=== PATIENT | male | born 1970 | race Caucasian/White ===

== ENCOUNTER 2020-04-20 05:32 | Inpatient (IN) | payer BC, OTHER ==
[~2020-04-20] VITALS: Ht 175.3 cm; Wt 122.1 kg
[2020-04-20] VITALS (15 sets, daily range): BP systolic 84–152; BP diastolic 41–103
[~2020-04-20 05:32] MED LIST: ALLO100T PO; CARV25TA2 PO; FURO-150 PO; GABA-534 PO; HYDR-3972 PO; MAGN400T28 PO; OMEP40CA13 PO; ONDA4TAB12 PO; ONDA4TAB6 PO; OXYC-138 PO; TACR1CAP PO
[2020-04-20] MEDS ORDERED: CefTRIAXone 2gm/D5W 50ml 50 ML IV ONE (05:40)
[2020-04-20] MEDS ORDERED: normal saline 1000ML IV soln IV ONE (05:40)
[2020-04-20] MEDS ORDERED: CefTRIAXone inj 2,000 MG in normal saline 100ml IV soln 100 ML IV ONE (05:42)
[2020-04-20 05:55] LABS: BASOPHILS # (AUTO) 0.1 X10'3 (0-0.2); BASOPHILS % (AUTO) 0.3 % (0-1); EOSINOPHILS % (AUTO) 0.1 % (0-6); HEMATOCRIT 29.3 % (42.0-52.0); HEMOGLOBIN 9.1 g/dl (14.0-17.9); LYMPHOCYTES # (AUTO) 0.9 X10'3 (1.1-4.8); LYMPHOCYTES % (AUTO) 5.6 % (21-51); MEAN CORPUSCULAR HEMOGLOBIN 27.5 PG (27.0-31.0); MEAN CORPUSCULAR HGB CONC 31.1 g/dL (33.0-36.5); MEAN CORPUSCULAR VOLUME 88.5 FL (78-98); MEAN PLATELET VOLUME 7.7 FL (7.4-10.4); MONOCYTES # (AUTO) 0.4 X10'3 (0-0.9); MONOCYTES % (AUTO) 2.4 % (2-12); NEUTROPHILS # (AUTO) 14.2 X10'3 (1.8-7.7); NEUTROPHILS % (AUTO) 91.6 % (42-75); PLATELET COUNT 386 X10'3 (140-440); RED BLOOD COUNT 3.31 X10'6 (4.70-6.10); WHITE BLOOD COUNT 15.5 X10'3 (4.5-11.0)
--- NOTE | 2020-04-20 06:07 | NUR ---
Md D eLeon at bedside reassessing the patient. Defib pads applied to pt. 0.05mg epinephrine given per verbal MD order. Order given to admin 0.4mg narcon.
[2020-04-20 06:09] LABS: PARTIAL THROMBOPLASTIN TIME 31 SECONDS (22-32)
--- NOTE | 2020-04-20 06:11 | NUR ---
1.2mg narcan given ivp per verbal order from Ohlfs
[2020-04-20 06:16] LABS: CLARITY,URINE CLEAR (Clear); COLOR,URINE AMBER (Yellow); GLUCOSE, URINE NEGATIVE (Neg); KETONES,URINE TRACE mg/dl (Neg); LEUKOCYTE ESTERASE ,URINE NEGATIVE (Neg); NITRITES, URINE NEGATIVE (Neg); OCCULT BLOOD,URINE TRACE-INTACT (Neg); PROTEIN,URINE 100 mg/dl (Neg); UROBILINOGEN,URINE 0.2 E.U/dL (0.2-1.0)
[2020-04-20 06:20] LABS: ALANINE AMINOTRANSFERASE 105 U/L (12-78); ALBUMIN/GLOBULIN RATIO 0.5 (1.1-1.5); ALKALINE PHOSPHATASE 220 IU/L (46-116); ANION GAP 21 (8-16); ASPARTATE AMINO TRANSFERASE 20 U/L (10-37); BILIRUBIN,TOTAL 0.7 MG/DL (0.1-1.0); BLOOD UREA NITROGEN 101 MG/DL (7-18); BUN/CREATININE RATIO 12.1 (5.4-32.0); CALCIUM 8.4 MG/DL (8.5-10.1); CHLORIDE 94 MMOL/L (99-107); CREATININE 8.34 MG/DL (0.60-1.10); GLUCOSE 166 MG/DL (70-104); MAGNESIUM 3.6 MG/DL (1.5-2.4); SODIUM 129 MMOL/L (135-145); TOTAL PROTEIN 8.8 G/DL (6.4-8.2); eGFR 7 ML/MIN
[2020-04-20] MEDS ORDERED: atropine 1 MG/1 ML vial IV ONE ×2 (06:20→06:25)
[2020-04-20 06:22] LABS: TROPONIN I < 0.04 NG/ML (0.0-0.05)
[2020-04-20 06:24] LABS: TOTAL CARBON DIOXIDE 14.1 MMOL/L (24-32)
[2020-04-20] MEDS ORDERED: dextrose 50%-water 50ml dispensing syringe IV ONE ×2 (06:25→08:00)
[2020-04-20] MEDS ORDERED: ipratropium/albuterol 3ml nebule NEB PRN (06:25)
[2020-04-20] MEDS ORDERED: calcium chloride 100 MG/1 ML inj IV ONE ×3 (06:25→08:00)
[2020-04-20] MEDS ORDERED: insulin regular, human 10 units/0.1 ml syringe IV ONE (06:25)
[2020-04-20] MEDS ORDERED: sodium bicarbonate (8.4%) 1 mEq/ml syringe IV ONE ×3 (06:25→08:00)
[2020-04-20 06:26] LABS: UA COLLECTION TYPE FOLEY CATH
[2020-04-20] MEDS ORDERED: albuterol 2.5 MG/3 ML nebule CONTNEB PRN (06:30)
[2020-04-20] MEDS ORDERED: insulin regular, human U-100 3ml vial - multi-dose IV ONE (06:35)
--- NOTE | 2020-04-20 06:35 | NUR ---
DR BAÑUELOSFS AT BEDSIDE TO INSERT CENTRAL LINE AT THIS TIME.
[2020-04-20] MEDS ORDERED: rocuronium 10mg/ml inj IV ONE ×2 (06:45→08:00)
[2020-04-20] MEDS ORDERED: etomidate 2mg/ml inj. IV ONE (06:45)
[2020-04-20] MEDS ORDERED: sodium bicarbonate (8.4%) inj. 1 MEQ/ML ML IV ONE (06:45)
[2020-04-20 06:48] LABS: BACTERIA,URINE FEW /HPF (Neg); MUCUS STRANDS NONE SEEN /LPF (Neg); RBC,URINE 0-2 /HPF (0-2); SQUAMOUS EPITHELIAL CELL,UR FEW /LPF (FEW)
[2020-04-20] MEDS ORDERED: midazolam 100mg in NS 100ml 100 ML IV SCH (06:50)
[2020-04-20] MEDS ORDERED: fentaNYL/PF 50MCG/1 ML 2ML syringe IV PRN (06:50)
[2020-04-20] MEDS ORDERED: FENTANYL 1000MCG/NS 100 ML BAG /PF IV SCH (07:00)
[2020-04-20] MEDS ORDERED: FENTANYL 1000MCG/NS 100 ML BAG /PF IV PRN (07:00)
[2020-04-20] MEDS ORDERED: midazolam 100mg in NS 100ml 100 ML IV PRN (07:05)
[2020-04-20] MEDS ORDERED: LORazepam 2 mg/ml vial IV ONE (07:05)
[2020-04-20] MEDS ORDERED: vancomycin/NS 1 GM ADD-VANTAGE 250 ML X 1 DOSE IV ONE (07:10)
[2020-04-20] MEDS ORDERED: NORepinephrine 8mg/ 250ml NS 250 ML IV SCH (07:25)
[2020-04-20] MEDS: midazolam 100mg in NS 100ml 100 ML IV SCH ×3 (07:30→17:33)
[2020-04-20] MEDS ORDERED: albuterol 2.5 MG/3 ML nebule NEB ONE (07:30)
[2020-04-20] MEDS: DOPamine 400mg/D5W 250ml 250 ML IV SCH ×4 (07:30→21:49)
[2020-04-20 07:41] LABS: PHOSPHORUS 12.1 MG/DL (2.3-4.5)
--- NOTE | 2020-04-20 07:56 | NUR ---
0.5mg ephinephrine given via IVP per Dr Watkins for BP 68/26.
[2020-04-20] MEDS ORDERED: epiNEPHrine 1 mg/ml inj IV STA ×3 (07:58→08:22)
[2020-04-20] MEDS ORDERED: etomidate 2mg/ml inj. ONE (08:00)
[2020-04-20] MEDS ORDERED: atropine 0.1mg/ml 10ml syringe ONE (08:00)
[2020-04-20] MEDS ORDERED: epiNEPHrine 0.1mg/ml 10ml syringe ONE (08:00)
[2020-04-20] MEDS ORDERED: sodium bicarbonate (8.4%) 1 mEq/ml syringe ONE (08:00)
[2020-04-20] MEDS ORDERED: NORepinephrine 8 MG in NS 250 ML BAG (32 mcg/ml) IV ONE (08:00)
[2020-04-20] MEDS ORDERED: naloxone 0.4 mg/ml inj ONE (08:00)
--- NOTE | 2020-04-20 08:02 | NUR ---
0.5 mg epinephrine given IVP per [facility] for BP 84/38.
--- NOTE | 2020-04-20 08:09 | NUR ---
Per Dr Ohlfs when SBP drops < 80 then give 0.5mg epinephrine IVP.
[2020-04-20] MEDS ORDERED: bisacodyl 10mg suppository rectal RC PRN (08:15)
[2020-04-20] MEDS ORDERED: Neutra Phos packet PO PRN (08:15)
[2020-04-20] MEDS ORDERED: acetaminophen 325mg tablet PO PRN ×2 (08:15)
[2020-04-20] MEDS ORDERED: magnesium Cl slow-release 64mg tablet PO PRN (08:15)
[2020-04-20] MEDS ORDERED: sodium phosphate inj. 30 MMOL in dextrose 5%-water 250 ML IV PRN (08:15)
[2020-04-20] MEDS ORDERED: potassium CL 10mEq/100ml bag 100 ML IV PRN ×2 (08:15)
[2020-04-20] MEDS ORDERED: sodium phosphate inj. 15 MMOL in dextrose 5%-water 250 ML IV PRN (08:15)
[2020-04-20] MEDS ORDERED: magnesium 4gm in 100ml NS 100 ML IV PRN ×2 (08:15→08:45)
[2020-04-20] MEDS ORDERED: magnesium hydroxide 30ml (MOM) UD suspension PO PRN (08:15)
[2020-04-20] MEDS ORDERED: albuterol 2.5 MG/3 ML nebule NEB PRN (08:15)
[2020-04-20] MEDS ORDERED: potassium Cl 20 mEq SR tablet PO PRN ×2 (08:15)
[2020-04-20] MEDS ORDERED: magnesium 2GM in 50ml NS 50 ML IV PRN (08:15)
[2020-04-20] MEDS ORDERED: LIDOcaine 2% 10ml TOPICAL JELLY (Urojet) TP ONE (08:15)
[2020-04-20 08:20] LABS: ABG BASE EXCESS -16.9 mmol/L (-2.0-2.0); ABG HCO3 10.6 mmol/L (22.0-26.0); ABG OXYGEN SATURATION 95.4 % (94-97); ABG PCO2 (T) 31.2 mmHg (35.0-48.0); ABG PO2 (T) 90.7 mmHg (75.0-100.0); FCOHb 0.7 % (0.0-3.9); FMetHb 0.3 % (0.0-1.5); FO2Hb 94.4 % (94-97); PEEP 8 cm H2O; RESPIRATORY RATE 22 b/min; TIDAL VOLUME 550 mL; TOTAL HEMOGLOBIN 8.7 G/dl (14.0-18.0)
--- NOTE | 2020-04-20 08:20 | NUR ---
0.5mg Epinephrine IVP given at this time for BP 71/[address] Watkins[address]
--- NOTE | 2020-04-20 08:23 | NUR ---
4 attempts to obtain wave form for art line with no success, will continue to monitor.
--- NOTE | 2020-04-20 08:30 | NUR ---
0.5mg Epinephrine given via IVP per Dr Watkins for BP 73/26.
--- NOTE | 2020-04-20 08:42 | NUR ---
1mg epinephrine given IVP per Dr Watkins for BP 73/30.
[2020-04-20] MEDS ORDERED: heparin 25,000 UNIT/250ml bag 250 ML IV SCH (08:43)
[2020-04-20] MEDS ORDERED: calcium chloride inj. 1,000 MG in normal saline 100ml IV soln 100 ML IV PRN (08:45)
[2020-04-20] MEDS ORDERED: heparin 10,000 units/1 ML INJ IV PRN (08:45)
[2020-04-20] MEDS ORDERED: potassium Cl 20mEq/100mL bag 100 ML IV PRN (08:45)
[2020-04-20] MEDS ORDERED: sodium phosphate inj. 30 MMOL in normal saline 250ml IV soln 250 ML IV PRN (08:45)
[2020-04-20] MEDS ORDERED: heparin 10,000 units/1 ML INJ IV ONE (08:45)
--- NOTE | 2020-04-20 08:47 | NUR ---
Per Dr Ohlfs if SBP <80 then give Epinephrine 1mg IVP.
--- NOTE | 2020-04-20 08:59 | NUR ---
Given 1mg epinephrine IVP at this time for BP 78/[address] Watkins.
[2020-04-20] MEDS: bicarb dialysis sol 2K+/3 Ca2+ 5,000 ML HE SCH ×4 (09:00→15:51)
--- NOTE | 2020-04-20 09:10 | NUR ---
Received pt. to room 2039 from ED after receiving report from Zhanna RYAN. Pt. intubated with Versed infusing. Dr. Bailey at bedside to place Sundeep to left groin. Pt. has CVL to R subclavian. OGT placed. Dopamine and Versed infusing. Levo started now. Guard at bedside.
[2020-04-20] MEDS ORDERED: NORepinephrine 8mg/ 250ml NS 250 ML IV ONE (09:21)
[2020-04-20 09:46] LABS: AMYLASE 48 U/L (25-115); LDL CHOLESTEROL 122 MG/DL (50-100); LIPASE 354 U/L (73-393)
[2020-04-20 10:20] LABS: URINE AMPHETAMINE SCREEN NEGATIVE (Neg); URINE BARBITUATE SCREEN NEGATIVE (Neg); URINE BENZODIAZEPINES SCREEN NEGATIVE (Neg); URINE CANNABINOID SCREEN NEGATIVE (Neg); URINE COCAINE SCREEN NEGATIVE (Neg); URINE METHADONE SCREEN NEGATIVE (Neg); URINE OPIATE SCREEN POSITIVE (Neg); URINE PHENCYCLIDINE SCREEN NEGATIVE (Neg)
[2020-04-20 10:48] LABS: BASOPHILS % (AUTO) 0.2 % (0-1); EOSINOPHILS % (AUTO) 0 % (0-6); HEMATOCRIT 25.1 % (42.0-52.0); LYMPHOCYTES # (AUTO) 0.8 X10'3 (1.1-4.8); LYMPHOCYTES % (AUTO) 5.2 % (21-51); MEAN CORPUSCULAR HGB CONC 31.8 g/dL (33.0-36.5); MEAN CORPUSCULAR VOLUME 87.8 FL (78-98); MEAN PLATELET VOLUME 7.7 FL (7.4-10.4); MONOCYTES # (AUTO) 0.9 X10'3 (0-0.9); MONOCYTES % (AUTO) 6.1 % (2-12); NEUTROPHILS # (AUTO) 12.8 X10'3 (1.8-7.7); NEUTROPHILS % (AUTO) 88.5 % (42-75); PLATELET COUNT 342 X10'3 (140-440); RED BLOOD COUNT 2.86 X10'6 (4.70-6.10); RED CELL DISTRIBUTION WIDTH 15.2 % (11.5-14.5); WHITE BLOOD COUNT 14.5 X10'3 (4.5-11.0)
[2020-04-20] MEDS: pantoprazole 40 MG vial IV SCH (10:50)
[2020-04-20 11:51] LABS: BASOPHILS % (AUTO) 0.3 % (0-1); EOSINOPHILS % (AUTO) 0 % (0-6); HEMATOCRIT 26.3 % (42.0-52.0); HEMOGLOBIN 8.3 g/dl (14.0-17.9); LYMPHOCYTES # (AUTO) 0.7 X10'3 (1.1-4.8); LYMPHOCYTES % (AUTO) 4.8 % (21-51); MEAN CORPUSCULAR HEMOGLOBIN 27.6 PG (27.0-31.0); MEAN CORPUSCULAR HGB CONC 31.5 g/dL (33.0-36.5); MEAN CORPUSCULAR VOLUME 87.8 FL (78-98); MONOCYTES # (AUTO) 0.9 X10'3 (0-0.9); MONOCYTES % (AUTO) 5.6 % (2-12); NEUTROPHILS # (AUTO) 13.8 X10'3 (1.8-7.7); NEUTROPHILS % (AUTO) 89.3 % (42-75); PLATELET COUNT 338 X10'3 (140-440); RED BLOOD COUNT 2.99 X10'6 (4.70-6.10); RED CELL DISTRIBUTION WIDTH 15.6 % (11.5-14.5); WHITE BLOOD COUNT 15.5 X10'3 (4.5-11.0)
[2020-04-20 11:57] LABS: ALBUMIN 2.3 G/DL (3.4-5.0); ANION GAP 21 (8-16); BLOOD UREA NITROGEN 92 MG/DL (7-18); BUN/CREATININE RATIO 13.4 (5.4-32.0); CHLORIDE 99 MMOL/L (99-107); CREATININE 6.89 MG/DL (0.60-1.10); GLUCOSE 289 MG/DL (70-104); MAGNESIUM 2.8 MG/DL (1.5-2.4); PHOSPHORUS 8.5 MG/DL (2.3-4.5); POTASSIUM 5.9 MMOL/L (3.5-5.1); SODIUM 133 MMOL/L (135-145); eGFR 9 ML/MIN
[2020-04-20 12:00] LABS: TOTAL CARBON DIOXIDE 13.1 MMOL/L (24-32)
[2020-04-20 12:19] LABS: BASOPHILS % (AUTO) 0.1 % (0-1); EOSINOPHILS % (AUTO) 0 % (0-6); HEMATOCRIT 26.6 % (42.0-52.0); HEMOGLOBIN 8.4 g/dl (14.0-17.9); LYMPHOCYTES # (AUTO) 0.7 X10'3 (1.1-4.8); LYMPHOCYTES % (AUTO) 4.9 % (21-51); MEAN CORPUSCULAR HEMOGLOBIN 27.5 PG (27.0-31.0); MEAN CORPUSCULAR HGB CONC 31.6 g/dL (33.0-36.5); MEAN PLATELET VOLUME 7.9 FL (7.4-10.4); MONOCYTES # (AUTO) 0.8 X10'3 (0-0.9); MONOCYTES % (AUTO) 5.2 % (2-12); NEUTROPHILS # (AUTO) 13.3 X10'3 (1.8-7.7); NEUTROPHILS % (AUTO) 89.8 % (42-75); PLATELET COUNT 338 X10'3 (140-440); RED BLOOD COUNT 3.05 X10'6 (4.70-6.10); RED CELL DISTRIBUTION WIDTH 15.6 % (11.5-14.5); WHITE BLOOD COUNT 14.8 X10'3 (4.5-11.0)
[2020-04-20 12:29] LABS: ALBUMIN 2.4 G/DL (3.4-5.0); ANION GAP 21 (8-16); BLOOD UREA NITROGEN 88 MG/DL (7-18); BUN/CREATININE RATIO 13.5 (5.4-32.0); CHLORIDE 101 MMOL/L (99-107); CREATININE 6.51 MG/DL (0.60-1.10); GLUCOSE 283 MG/DL (70-104); MAGNESIUM 2.9 MG/DL (1.5-2.4); PHOSPHORUS 7.8 MG/DL (2.3-4.5); POTASSIUM 5.7 MMOL/L (3.5-5.1); SODIUM 135 MMOL/L (135-145); eGFR 9 ML/MIN
[2020-04-20 12:33] LABS: TOTAL CARBON DIOXIDE 12.6 MMOL/L (24-32)
[2020-04-20] MEDS: NORepinephrine 8mg/ 250ml NS 250 ML IV SCH (12:35)
[2020-04-20 13:23] LABS: BASOPHILS % (AUTO) 0.1 % (0-1); EOSINOPHILS % (AUTO) 0 % (0-6); HEMATOCRIT 26.3 % (42.0-52.0); HEMOGLOBIN 8.5 g/dl (14.0-17.9); LYMPHOCYTES # (AUTO) 0.6 X10'3 (1.1-4.8); LYMPHOCYTES % (AUTO) 4.6 % (21-51); MEAN CORPUSCULAR HGB CONC 32.3 g/dL (33.0-36.5); MEAN CORPUSCULAR VOLUME 86.7 FL (78-98); MEAN PLATELET VOLUME 7.6 FL (7.4-10.4); MONOCYTES # (AUTO) 0.7 X10'3 (0-0.9); MONOCYTES % (AUTO) 5.1 % (2-12); NEUTROPHILS # (AUTO) 12.3 X10'3 (1.8-7.7); NEUTROPHILS % (AUTO) 90.2 % (42-75); PLATELET COUNT 325 X10'3 (140-440); RED BLOOD COUNT 3.03 X10'6 (4.70-6.10); RED CELL DISTRIBUTION WIDTH 15.6 % (11.5-14.5); WHITE BLOOD COUNT 13.7 X10'3 (4.5-11.0)
[2020-04-20 13:30] LABS: ALBUMIN 2.3 G/DL (3.4-5.0); ANION GAP 20 (8-16); BLOOD UREA NITROGEN 82 MG/DL (7-18); BUN/CREATININE RATIO 13.3 (5.4-32.0); CHLORIDE 100 MMOL/L (99-107); CREATININE 6.16 MG/DL (0.60-1.10); GLUCOSE 260 MG/DL (70-104); MAGNESIUM 2.7 MG/DL (1.5-2.4); PHOSPHORUS 7.1 MG/DL (2.3-4.5); POTASSIUM 5.4 MMOL/L (3.5-5.1); SODIUM 133 MMOL/L (135-145); eGFR 10 ML/MIN
[2020-04-20 13:34] LABS: TOTAL CARBON DIOXIDE 12.8 MMOL/L (24-32)
[2020-04-20] MEDS ORDERED: AMIT100T61 PO (13:35)
[2020-04-20] MEDS ORDERED: AMLO10TA13 PO (13:35)
[2020-04-20] MEDS ORDERED: CHOL10006 PO (13:35)
[2020-04-20] MEDS ORDERED: MULT-687 PO (13:35)
[2020-04-20] MEDS ORDERED: HYDR12.55 PO (13:35)
[2020-04-20] MEDS ORDERED: ACET-1059 PO (13:35)
--- NOTE | 2020-04-20 13:38 | NUR ---
RN called Dr. Bailey about hyperglycemia and C02 of 12.8. Orders received.
[2020-04-20 13:40] LABS: ABG BASE EXCESS -16.1 mmol/L (-2.0-2.0); ABG HCO3 11.4 mmol/L (22.0-26.0); ABG OXYGEN SATURATION 91.1 % (94-97); ABG PCO2 (T) 27.5 mmHg (35.0-48.0); ABG PO2 (T) 52.6 mmHg (75.0-100.0); FCOHb 0.3 % (0.0-3.9); FO2Hb 90.8 % (94-97); PATIENT TEMPERATURE 32.8; PEEP 5 cm H2O; RESPIRATORY RATE 22 b/min; TIDAL VOLUME 500 mL; TOTAL HEMOGLOBIN 9.3 G/dl (14.0-18.0)
[2020-04-20] MEDS ORDERED: insulin Lispro (HumaLOG) vial - multi-dose SQ SCH (13:40)
[2020-04-20] MEDS ORDERED: dextrose 50%-water 50ml dispensing syringe IV PRN (13:40)
[2020-04-20] MEDS ORDERED: glucagon, human recombinant 1mg kit SUBCUT PRN (13:40)
[2020-04-20] MEDS ORDERED: MESSAGE TO PHARMACY PO ONE (13:40)
[2020-04-20] MEDS ORDERED: dextrose ORAL solution 15 GM/59 ML bottle PO PRN ×2 (13:40)
--- NOTE | 2020-04-20 13:59 | NUR ---
Tube feeding consult. Patient is intubated and sedated, on pressors. Presented to ED with shock, hyperkalemia, MELLO, sepsis, AMS--will have CVVH for the potassium all per MD note. In view of elevated K, Mg, Phos, low sodium recommend renal tube feeding formula. Formula and rate will not meet patient's protein needs without overfeeding calories on the vent. Has OG tube. Will follow and monitor electrolytes and appropriateness to change to non-renal formula to better meet patient's protein needs. Recommend: 1. continuos tube feeding per OG tube using Nepro at goal rate of 50 ml/hr will provide total volume of 1200 ml, 2160 tonja, 97 g protein, and 872 ml water. 2. additional water flush per MD in view of CVVH and low sodium 3. prealbumin q monday/ 4. daily weights 5. monitor electrolytes and tube feeding formula needs Addendum: 04/20/20 at [address] Amended: Links added.
[2020-04-20 14:18] LABS: BASOPHILS % (AUTO) 0.6 % (0-1); EOSINOPHILS % (AUTO) 0 % (0-6); HEMOGLOBIN 8.1 g/dl (14.0-17.9); LYMPHOCYTES # (AUTO) 0.5 X10'3 (1.1-4.8); MEAN CORPUSCULAR HEMOGLOBIN 27.9 PG (27.0-31.0); MEAN CORPUSCULAR HGB CONC 32.3 g/dL (33.0-36.5); MEAN CORPUSCULAR VOLUME 86.4 FL (78-98); MEAN PLATELET VOLUME 7.6 FL (7.4-10.4); MONOCYTES # (AUTO) 0.1 X10'3 (0-0.9); MONOCYTES % (AUTO) 2.2 % (2-12); NEUTROPHILS # (AUTO) 5.8 X10'3 (1.8-7.7); NEUTROPHILS % (AUTO) 90.2 % (42-75); PLATELET COUNT 270 X10'3 (140-440); RED BLOOD COUNT 2.89 X10'6 (4.70-6.10); RED CELL DISTRIBUTION WIDTH 15.2 % (11.5-14.5); WHITE BLOOD COUNT 6.5 X10'3 (4.5-11.0)
[2020-04-20] MEDS: sodium bicarbonate (8.4%) inj. 100 MEQ in dextrose 5%-water 1,000 ML IV SCH (14:30)
[2020-04-20 14:31] LABS: ALBUMIN 2.2 G/DL (3.4-5.0); ANION GAP 22 (8-16); BLOOD UREA NITROGEN 79 MG/DL (7-18); BUN/CREATININE RATIO 13.7 (5.4-32.0); CHLORIDE 101 MMOL/L (99-107); CREATININE 5.75 MG/DL (0.60-1.10); GLUCOSE 252 MG/DL (70-104); MAGNESIUM 2.7 MG/DL (1.5-2.4); PHOSPHORUS 6.4 MG/DL (2.3-4.5); SODIUM 135 MMOL/L (135-145); eGFR 11 ML/MIN
[2020-04-20 14:36] LABS: TOTAL CARBON DIOXIDE 12.5 MMOL/L (24-32)
[2020-04-20] MEDS: piperacillin/tazo 3.375gm/50ml 50 ML IV SCH ×2 (14:38→20:39)
[2020-04-20 15:12] LABS: HEMOGLOBIN A1C 6.1 % (4.5-6.2)
[2020-04-20] MEDS: insulin regular, human U-100 3ml vial - multi-dose SQ SCH (15:29)
--- NOTE | 2020-04-20 15:37 | NUR ---
Pt. has been hypothermic since admit. 35.0 C. Erickson hugger and warm blankets provided to pt. Charge nurse aware. Unable to turn pt. Q2H or place pillow under his head due to occluding Sundeep in left groin and peak pressuring ventilator. Dopamine and Levophed off for now.
--- NOTE | 2020-04-20 16:30 | NUR ---
CVVH AP reading high (-261). Flushed twice, lines swapped, pt. repositioned. Unable to get lower (normal) AP. RN called Effie on-call dialysis nurse for trouble shooting ideas. States it sounds positional. Will notify charge nurse when she becomes available.
[2020-04-20] MEDS ORDERED: heparin 1,000 units/ml 10ml inj HE ONE ×2 (17:10)
--- NOTE | 2020-04-20 17:39 | NUR ---
Dr. Bailey called and updated with pt. status (labs, VS, CVVH going down.) Stated to stop CVVH, get renal panel at 1999 and HD tomorrow am.
--- NOTE | 2020-04-20 18:05 | NUR ---
Problems reprioritized. Patient report given, questions answered & plan of care reviewed with Emeka RYAN.
[2020-04-20] MEDS: insulin glargine (Lantus) pen - multi-dose SQ SCH (20:45)
[2020-04-20 21:11] LABS: ABG BASE EXCESS -7.6 mmol/L (-2.0-2.0); ABG HCO3 15.5 mmol/L (22.0-26.0); ABG OXYGEN SATURATION 96.1 % (94-97); ABG PCO2 (T) 23.6 mmHg (35.0-48.0); ABG PO2 (T) 89.1 mmHg (75.0-100.0); FCOHb 0.3 % (0.0-3.9); FMetHb 0.2 % (0.0-1.5); FO2Hb 95.6 % (94-97); PATIENT TEMPERATURE 37.2; PEEP 5 cm H2O; RESPIRATORY RATE 26 b/min
[2020-04-20 21:15] LABS: OXYGEN SATURATION (MIXED VEN) 69.8 % (60-80); PO2 MIXED VENOUS (TEMP COR) 35.6 mmHg (35-46)
[2020-04-20 21:55] LABS: ALBUMIN 1.7 G/DL (3.4-5.0); ANION GAP 29 (8-16); BLOOD UREA NITROGEN 66 MG/DL (7-18); BUN/CREATININE RATIO 13.6 (5.4-32.0); CHLORIDE 98 MMOL/L (99-107); CREATININE 4.86 MG/DL (0.60-1.10); GLUCOSE 180 MG/DL (70-104); PHOSPHORUS 3.7 MG/DL (2.3-4.5); SODIUM 143 MMOL/L (135-145); TOTAL CARBON DIOXIDE 16.5 MMOL/L (24-32); eGFR 13 ML/MIN
[2020-04-20 21:58] LABS: CALCIUM 5.8 MG/DL (8.5-10.1)
[2020-04-20] MEDS ORDERED: potassium Cl 20 mEq/100mL bag IV ONE (23:00)
[2020-04-20] MEDS ORDERED: potassium Cl 20mEq/100mL bag 100 ML IV ONE (23:05)
[2020-04-21] VITALS (25 sets, daily range): BP systolic 113–163; BP diastolic 64–90
[2020-04-21] MEDS ORDERED: potassium Cl 20mEq/100mL bag 100 ML IV ONE (00:58)
[2020-04-21] MEDS: sodium bicarbonate (8.4%) inj. 100 MEQ in dextrose 5%-water 1,000 ML IV SCH (01:20)
[2020-04-21] MEDS: midazolam 100mg in NS 100ml 100 ML IV SCH ×3 (01:21→17:41)
[2020-04-21] MEDS ORDERED: potassium Cl 20 mEq/100mL bag IV ONE (01:25)
[2020-04-21] MEDS: insulin regular, human U-100 3ml vial - multi-dose SQ SCH ×4 (02:50→21:49)
[2020-04-21 03:01] LABS: BASOPHILS % (AUTO) 0.2 % (0-1); EOSINOPHILS % (AUTO) 0.3 % (0-6); HEMATOCRIT 23.2 % (42.0-52.0); HEMOGLOBIN 7.8 g/dl (14.0-17.9); LYMPHOCYTES # (AUTO) 0.6 X10'3 (1.1-4.8); LYMPHOCYTES % (AUTO) 8.1 % (21-51); MEAN CORPUSCULAR HGB CONC 33.5 g/dL (33.0-36.5); MEAN CORPUSCULAR VOLUME 83.7 FL (78-98); MEAN PLATELET VOLUME 7.6 FL (7.4-10.4); MONOCYTES # (AUTO) 0.6 X10'3 (0-0.9); MONOCYTES % (AUTO) 7.8 % (2-12); NEUTROPHILS # (AUTO) 6.1 X10'3 (1.8-7.7); NEUTROPHILS % (AUTO) 83.6 % (42-75); PLATELET COUNT 267 X10'3 (140-440); RED BLOOD COUNT 2.77 X10'6 (4.70-6.10); RED CELL DISTRIBUTION WIDTH 15.3 % (11.5-14.5); WHITE BLOOD COUNT 7.3 X10'3 (4.5-11.0)
[2020-04-21 03:17] LABS: ALANINE AMINOTRANSFERASE 59 U/L (12-78); ALBUMIN 2.1 G/DL (3.4-5.0); ALBUMIN/GLOBULIN RATIO 0.5 (1.1-1.5); ALKALINE PHOSPHATASE 142 IU/L (46-116); ANION GAP 12 (8-16); ASPARTATE AMINO TRANSFERASE 18 U/L (10-37); BILIRUBIN,TOTAL 0.3 MG/DL (0.1-1.0); BLOOD UREA NITROGEN 79 MG/DL (7-18); BUN/CREATININE RATIO 14.6 (5.4-32.0); CALCIUM 7.4 MG/DL (8.5-10.1); CHLORIDE 104 MMOL/L (99-107); GLUCOSE 164 MG/DL (70-104); MAGNESIUM 2.2 MG/DL (1.5-2.4); POTASSIUM 4.7 MMOL/L (3.5-5.1); SODIUM 138 MMOL/L (135-145); TOTAL CARBON DIOXIDE 21.6 MMOL/L (24-32); eGFR 11 ML/MIN
[2020-04-21 04:10] LABS: ABG BASE EXCESS -7.9 mmol/L (-2.0-2.0); ABG HCO3 16.3 mmol/L (22.0-26.0); ABG OXYGEN SATURATION 93.9 % (94-97); ABG PCO2 (T) 27.9 mmHg (35.0-48.0); ABG PO2 (T) 75.7 mmHg (75.0-100.0); FCOHb 0.3 % (0.0-3.9); FO2Hb 93.6 % (94-97); PEEP 5 cm H2O; RESPIRATORY RATE 22 b/min; TIDAL VOLUME 500 mL; TOTAL HEMOGLOBIN 7.8 G/dl (14.0-18.0)
--- NOTE | 2020-04-21 06:23 | NUR ---
Problems reprioritized. Patient report given, questions answered & plan of care reviewed with Nubia RYAN.
[2020-04-21] MEDS ORDERED: heparin 1,000unit/ml 10ml vial 10 ML IV ONE (07:03)
[2020-04-21] MEDS ORDERED: albumin (human) 25% 100ml IV 100 ML IV PRN (07:05)
[2020-04-21] MEDS ORDERED: heparin 1,000 units/ml 10ml inj IV ONE (07:05)
[2020-04-21] MEDS ORDERED: epoetin 20,000 units/ml inj IV ONE (07:05)
[2020-04-21] MEDS ORDERED: heparin 1,000 units/ml 10ml inj HE ONE ×2 (07:10)
[2020-04-21] MEDS: pantoprazole 40 MG vial IV SCH (07:16)
[2020-04-21] MEDS: piperacillin/tazo 3.375gm/50ml 50 ML IV SCH ×2 (07:16→21:43)
[2020-04-21] MEDS ORDERED: dextrose 50%-water 50ml dispensing syringe IV PRN (07:50)
--- NOTE | 2020-04-21 09:00 | NUR ---
MD at bedside, new orders for sputum culture and for a vanco trough to be done. Also, new order for pharmacy to dose vanco.
[2020-04-21 09:03] LABS: VANCOMYCIN,TROUGH 8.8 UG/ML (6.0-14.0)
[2020-04-21] MEDS: NORepinephrine 8mg/ 250ml NS 250 ML IV SCH (09:16)
[2020-04-21] MEDS ORDERED: dextrose ORAL solution 15 GM/59 ML bottle OGT PRN ×2 (09:28)
[2020-04-21] MEDS ORDERED: acetaminophen 325mg tablet OGT PRN (09:28)
[2020-04-21] MEDS ORDERED: magnesium hydroxide 30ml (MOM) UD suspension OGT PRN (09:29)
[2020-04-21] MEDS ORDERED: heparin 25,000 UNIT/250ml bag 250 ML IV SCH (09:33)
--- NOTE | 2020-04-21 10:00 | NUR ---
Dr. Michael at bedside. New order for Heparin 5,000 units SQ q12 hours and to d/c bicarb gtt due to patient recieving dialysis.
[2020-04-21] MEDS: tacrolimus anhydrous 1mg capsule PO SCH ×2 (10:32→21:43)
[2020-04-21] MEDS: dexmedetomidin/NS 400mcg/100ml 100 ML IV SCH ×2 (10:32→14:46)
[2020-04-21] MEDS: ondansetron/PF 4mg/2ml inj IV PRN (12:55)
[2020-04-21] MEDS: mineral oil/petrolatum ophthal oint EACHEYE SCH ×2 (14:22→21:43)
[2020-04-21] MEDS: DOPamine 400mg/D5W 250ml 250 ML IV SCH (14:39)
--- NOTE | 2020-04-21 16:17 | NUR ---
Dr. Michael at bedside. aware of patient temp increasing. At this time is 37.8. No new orders at this time, temp to be expected due to positive blood cultures.
[2020-04-21] MEDS: dexmedetomidine inj. 400 MCG in dextrose 5%-water 96 ML IV SCH (17:43)
--- NOTE | 2020-04-21 18:30 | NUR ---
Patient in room ICU 2039. I have received report from STEVIE RYAN & JASPER RYAN and had the opportunity to ask questions and assume patient care.
[2020-04-21] MEDS ORDERED: amitriptyline 50mg tablet PO SCH (20:00)
[2020-04-21] MEDS: heparin, porcine 5000 units/ml vial SQ SCH (21:45)
[2020-04-21] MEDS: insulin glargine (Lantus) pen - multi-dose SQ SCH (21:48)
[2020-04-22] VITALS (24 sets, daily range): BP systolic 114–153; BP diastolic 60–86
[2020-04-22 02:49] LABS: BASOPHILS % (AUTO) 0.4 % (0-1); EOSINOPHILS # (AUTO) 0.1 X10'3 (0-0.9); EOSINOPHILS % (AUTO) 0.8 % (0-6); HEMATOCRIT 24.1 % (42.0-52.0); LYMPHOCYTES # (AUTO) 0.8 X10'3 (1.1-4.8); LYMPHOCYTES % (AUTO) 10.4 % (21-51); MEAN CORPUSCULAR HEMOGLOBIN 27.9 PG (27.0-31.0); MEAN CORPUSCULAR HGB CONC 33.2 g/dL (33.0-36.5); MEAN CORPUSCULAR VOLUME 84.1 FL (78-98); MEAN PLATELET VOLUME 7.7 FL (7.4-10.4); MONOCYTES # (AUTO) 0.6 X10'3 (0-0.9); MONOCYTES % (AUTO) 8.2 % (2-12); NEUTROPHILS # (AUTO) 6.1 X10'3 (1.8-7.7); NEUTROPHILS % (AUTO) 80.2 % (42-75); PLATELET COUNT 276 X10'3 (140-440); RED BLOOD COUNT 2.87 X10'6 (4.70-6.10); RED CELL DISTRIBUTION WIDTH 15.6 % (11.5-14.5); WHITE BLOOD COUNT 7.6 X10'3 (4.5-11.0)
[2020-04-22] MEDS: VANCOMYCIN LEVEL IV SCH (03:00)
[2020-04-22 03:04] LABS: ALBUMIN/GLOBULIN RATIO 0.5 (1.1-1.5); ANION GAP 11 (8-16); ASPARTATE AMINO TRANSFERASE 21 U/L (10-37); BILIRUBIN,TOTAL 0.3 MG/DL (0.1-1.0); BLOOD UREA NITROGEN 45 MG/DL (7-18); BUN/CREATININE RATIO 15.6 (5.4-32.0); CALCIUM 7.6 MG/DL (8.5-10.1); CHLORIDE 104 MMOL/L (99-107); CREATININE 2.88 MG/DL (0.60-1.10); GLUCOSE 143 MG/DL (70-104); POTASSIUM 3.8 MMOL/L (3.5-5.1); SODIUM 139 MMOL/L (135-145); TOTAL CARBON DIOXIDE 24.4 MMOL/L (24-32); TOTAL PROTEIN 6.3 G/DL (6.4-8.2); eGFR 23 ML/MIN
[2020-04-22 03:05] LABS: ALANINE AMINOTRANSFERASE 45 U/L (12-78); ALKALINE PHOSPHATASE 128 IU/L (46-116)
[2020-04-22 03:06] LABS: PHOSPHORUS 2.8 MG/DL (2.3-4.5); VANCOMYCIN,RANDOM 20.2 UG/ML
[2020-04-22] MEDS: midazolam 100mg in NS 100ml 100 ML IV SCH ×3 (03:08→21:48)
[2020-04-22] MEDS: mineral oil/petrolatum ophthal oint EACHEYE SCH ×4 (03:08→20:33)
[2020-04-22] MEDS: insulin regular, human U-100 3ml vial - multi-dose SQ SCH ×4 (03:11→20:42)
[2020-04-22 03:45] LABS: ABG BASE EXCESS 0.1 mmol/L (-2.0-2.0); ABG HCO3 23.9 mmol/L (22.0-26.0); ABG OXYGEN SATURATION 90.6 % (94-97); ABG PCO2 (T) 36.3 mmHg (35.0-48.0); ABG PO2 (T) 62.6 mmHg (75.0-100.0); FCOHb 0.3 % (0.0-3.9); FMetHb 0.1 % (0.0-1.5); FO2Hb 90.2 % (94-97); PATIENT TEMPERATURE 37.6; PEEP 5 cm H2O; RESPIRATORY RATE 20 b/min; TIDAL VOLUME 500 mL; TOTAL HEMOGLOBIN 8.5 G/dl (14.0-18.0)
[2020-04-22] MEDS: dexmedetomidine inj. 400 MCG in dextrose 5%-water 96 ML IV SCH ×5 (05:53→20:28)
--- NOTE | 2020-04-22 06:36 | NUR ---
Problems reprioritized. Patient report given, questions answered & plan of care reviewed with ART RN.
[2020-04-22] MEDS: pantoprazole 40 MG vial IV SCH (08:04)
[2020-04-22] MEDS: vitamin D (cholecalciferol) 1,000 unit tablet PO SCH (08:06)
[2020-04-22] MEDS: multivitamins, therapeutics tablet PO SCH (08:06)
[2020-04-22] MEDS: heparin, porcine 5000 units/ml vial SQ SCH ×2 (08:06→20:32)
[2020-04-22] MEDS: piperacillin/tazo 3.375gm/50ml 50 ML IV SCH ×2 (08:07→20:33)
[2020-04-22] MEDS ORDERED: bisacodyl 10mg suppository rectal RC PRN (08:15)
[2020-04-22] MEDS ORDERED: Neutra Phos packet OGT PRN (08:31)
[2020-04-22] MEDS ORDERED: vancomycin/NS 1 GM ADD-VANTAGE 250 ML IV PRN (09:00)
[2020-04-22] MEDS: acetaminophen 325mg tablet OGT PRN ×2 (13:25→20:31)
[2020-04-22] MEDS ORDERED: mineral oil/petrolatum ophthal oint EACHEYE SCH ×2 (14:00)
[2020-04-22] MEDS: ipratropium/albuterol 3ml nebule NEB SCH ×3 (15:23→23:28)
[2020-04-22] MEDS: furosemide 40mg/4ml inj IV SCH (20:31)
[2020-04-22] MEDS: amitriptyline 50mg tablet OGT SCH (20:33)
[2020-04-22] MEDS: tacrolimus anhydrous 1mg capsule OGT SCH (20:34)
[2020-04-22] MEDS: insulin glargine (Lantus) pen - multi-dose SQ SCH (20:43)
[2020-04-23] VITALS (24 sets, daily range): BP systolic 125–177; BP diastolic 62–94
[2020-04-23] MEDS: dexmedetomidine inj. 400 MCG in dextrose 5%-water 96 ML IV SCH ×6 (00:22→21:21)
[2020-04-23] MEDS: VANCOMYCIN LEVEL IV SCH (03:00)
[2020-04-23] MEDS: mineral oil/petrolatum ophthal oint EACHEYE SCH ×4 (03:03→19:54)
[2020-04-23] MEDS: insulin regular, human U-100 3ml vial - multi-dose SQ SCH ×4 (03:05→20:06)
[2020-04-23 03:14] LABS: BASOPHILS % (AUTO) 0.3 % (0-1); EOSINOPHILS # (AUTO) 0.1 X10'3 (0-0.9); EOSINOPHILS % (AUTO) 0.7 % (0-6); HEMATOCRIT 23.4 % (42.0-52.0); HEMOGLOBIN 7.8 g/dl (14.0-17.9); LYMPHOCYTES # (AUTO) 0.8 X10'3 (1.1-4.8); LYMPHOCYTES % (AUTO) 8.8 % (21-51); MEAN CORPUSCULAR HEMOGLOBIN 28.3 PG (27.0-31.0); MEAN CORPUSCULAR HGB CONC 33.4 g/dL (33.0-36.5); MEAN CORPUSCULAR VOLUME 84.9 FL (78-98); MEAN PLATELET VOLUME 7.2 FL (7.4-10.4); MONOCYTES # (AUTO) 0.6 X10'3 (0-0.9); MONOCYTES % (AUTO) 6.4 % (2-12); NEUTROPHILS # (AUTO) 7.7 X10'3 (1.8-7.7); NEUTROPHILS % (AUTO) 83.8 % (42-75); PLATELET COUNT 261 X10'3 (140-440); RED BLOOD COUNT 2.76 X10'6 (4.70-6.10); RED CELL DISTRIBUTION WIDTH 15.5 % (11.5-14.5); WHITE BLOOD COUNT 9.2 X10'3 (4.5-11.0)
[2020-04-23 03:29] LABS: ALANINE AMINOTRANSFERASE 37 U/L (12-78); ALBUMIN 1.9 G/DL (3.4-5.0); ALBUMIN/GLOBULIN RATIO 0.4 (1.1-1.5); ALKALINE PHOSPHATASE 123 IU/L (46-116); ANION GAP 8 (8-16); ASPARTATE AMINO TRANSFERASE 20 U/L (10-37); BILIRUBIN,TOTAL 0.4 MG/DL (0.1-1.0); BLOOD UREA NITROGEN 48 MG/DL (7-18); BUN/CREATININE RATIO 15.7 (5.4-32.0); CALCIUM 8.1 MG/DL (8.5-10.1); CHLORIDE 103 MMOL/L (99-107); CREATININE 3.05 MG/DL (0.60-1.10); GLUCOSE 160 MG/DL (70-104); PHOSPHORUS 3.4 MG/DL (2.3-4.5); POTASSIUM 3.8 MMOL/L (3.5-5.1); PREALBUMIN 14.6 MG/DL (19-36); SODIUM 139 MMOL/L (135-145); TOTAL PROTEIN 6.4 G/DL (6.4-8.2); VANCOMYCIN,RANDOM 13.4 UG/ML; eGFR 22 ML/MIN
[2020-04-23 03:46] LABS: ABG BASE EXCESS 0.1 mmol/L (-2.0-2.0); ABG HCO3 23.5 mmol/L (22.0-26.0); ABG OXYGEN SATURATION 91.5 % (94-97); ABG PCO2 (T) 33.1 mmHg (35.0-48.0); ABG PO2 (T) 62.6 mmHg (75.0-100.0); FCOHb 0.3 % (0.0-3.9); FMetHb 0.1 % (0.0-1.5); FO2Hb 91.1 % (94-97); PATIENT TEMPERATURE 37.2; PEEP 5 cm H2O; RESPIRATORY RATE 20 b/min; TIDAL VOLUME 500 mL; TOTAL HEMOGLOBIN 8.1 G/dl (14.0-18.0)
[2020-04-23] MEDS: ipratropium/albuterol 3ml nebule NEB SCH ×6 (03:47→23:08)
[2020-04-23] MEDS: midazolam 100mg in NS 100ml 100 ML IV SCH ×4 (05:53→20:03)
--- NOTE | 2020-04-23 06:00 | NUR ---
RN Note -Sedation Vacation Cut sedation in half, 10 mg/hr to 5mg/hr, for about 30 minutes when became tachypneic in the 30's with paradoxical respirations. Pt does not track or follow any commands or show any purposeful movement. Turned versed back up to 10 mg/hr
[2020-04-23] MEDS ORDERED: vancomycin/NS 1 GM ADD-VANTAGE 250 ML IV ONE (09:00)
[2020-04-23] MEDS: multivitamins, therapeutics tablet PO SCH (09:38)
[2020-04-23] MEDS: pantoprazole 40 MG vial IV SCH (09:38)
[2020-04-23] MEDS: furosemide 40mg/4ml inj IV SCH ×2 (09:38→19:55)
[2020-04-23] MEDS: heparin, porcine 5000 units/ml vial SQ SCH ×2 (09:39→19:54)
[2020-04-23] MEDS: amitriptyline 50mg tablet OGT SCH ×2 (09:39→19:54)
[2020-04-23] MEDS: tacrolimus anhydrous 1mg capsule OGT SCH ×2 (09:40→19:54)
[2020-04-23] MEDS: vitamin D (cholecalciferol) 1,000 unit tablet PO SCH (09:40)
[2020-04-23] MEDS: piperacillin/tazo 3.375gm/50ml 50 ML IV SCH ×2 (09:45→16:38)
[2020-04-23] MEDS ORDERED: methylPREDNISolone sod succ 125mg/2ml vial IV ONE (10:00)
[2020-04-23] MEDS ORDERED: furosemide 40mg/4ml inj IV ONE (10:00)
--- NOTE | 2020-04-23 10:00 | NUR ---
patent desaturating and noncompliant with vent. unable to improve sats with suctioning and other measures. FI02 up to 80; stat cxr. Mulitple boluses of versed and rate increased to 16 per MD
--- NOTE | 2020-04-23 11:07 | NUR ---
METANEB TX TERMINATED. AFTER ABOUT 3 MINUTES, THE PTS BP WAS EXTREMELY HIGH, SATS DROPPED TO 84. AFTER TAKING PT OFF TX, SXN AND GIVING 100% FIO2, SATS CAME BACK TO 94%. PT SEEMS MORE COMFORTABLE. BP COMING DOWN AND RR STABILIZING Addendum: 04/23/20 at 1111 by RT Amended: Links added.
--- NOTE | 2020-04-23 11:23 | NUR ---
Reassessment: Pt tolerating EN at goal GRV WNL. Unable to meet protein needs using high fat renal formula on vent. LBM 04/21. Pending head CT today per MD. Holding further HD s/p emergent HD w/ MELLO per MD. MAP 62 this AM. Will continue to monitor. Recommend: 1. continuos tube feeding per OG tube using Nepro at goal rate of 50 ml/hr will provide total volume of 1200 ml, 2160 tonja, 97 g protein, and 872 ml water. 2. additional water flush per MD 3. prealbumin q monday/ 4. daily weights 5. consider increase to 55ml/hr using Nepro if MD agreeable given protein needs on vent Addendum: 04/23/20 at [address] Amended: Links added.
[2020-04-23] MEDS: methylPREDNISolone sod succ 125mg/2ml vial IV SCH ×2 (14:11→19:55)
--- NOTE | 2020-04-23 16:15 | NUR ---
spoke with Dr Bailey regarding elevated BP; orders received
[2020-04-23] MEDS: cloNIDine 0.1 mg tablet PO SCH ×2 (16:43→20:10)
[2020-04-23] MEDS: insulin glargine (Lantus) pen - multi-dose SQ SCH (21:27)
[2020-04-23 22:00] LABS: ABG BASE EXCESS 2.2 mmol/L (-2.0-2.0); ABG HCO3 25.5 mmol/L (22.0-26.0); ABG OXYGEN SATURATION 90.5 % (94-97); ABG PO2 (T) 58.4 mmHg (75.0-100.0); FCOHb 0.1 % (0.0-3.9); FMetHb 0.3 % (0.0-1.5); FO2Hb 90.1 % (94-97); PATIENT TEMPERATURE 36.6; PEEP 5 cm H2O; RESPIRATORY RATE 20 b/min; TIDAL VOLUME 500 mL; TOTAL HEMOGLOBIN 9.1 G/dl (14.0-18.0)
[2020-04-23] MEDS ORDERED: hydrALAZINE 20mg/ml inj. IV ONE (22:20)
[2020-04-24] VITALS (24 sets, daily range): BP systolic 135–180; BP diastolic 68–95
[2020-04-24] MEDS: dexmedetomidine inj. 400 MCG in dextrose 5%-water 96 ML IV SCH ×4 (01:24→23:05)
[2020-04-24] MEDS: methylPREDNISolone sod succ 125mg/2ml vial IV SCH ×4 (01:33→20:55)
[2020-04-24] MEDS: mineral oil/petrolatum ophthal oint EACHEYE SCH ×4 (01:33→20:57)
[2020-04-24] MEDS: VANCOMYCIN LEVEL IV SCH (01:34)
[2020-04-24] MEDS: insulin regular, human U-100 3ml vial - multi-dose SQ SCH ×4 (01:56→22:11)
[2020-04-24] MEDS: midazolam 100mg in NS 100ml 100 ML IV SCH ×3 (02:18→21:55)
[2020-04-24] MEDS: ipratropium/albuterol 3ml nebule NEB SCH ×6 (03:00→22:33)
[2020-04-24 03:05] LABS: BASOPHILS % (AUTO) 0.1 % (0-1); EOSINOPHILS % (AUTO) 0 % (0-6); HEMATOCRIT 25.4 % (42.0-52.0); HEMOGLOBIN 8.1 g/dl (14.0-17.9); LYMPHOCYTES # (AUTO) 0.6 X10'3 (1.1-4.8); LYMPHOCYTES % (AUTO) 4.4 % (21-51); MEAN CORPUSCULAR HEMOGLOBIN 27.4 PG (27.0-31.0); MEAN CORPUSCULAR VOLUME 85.8 FL (78-98); MONOCYTES # (AUTO) 0.2 X10'3 (0-0.9); MONOCYTES % (AUTO) 1.8 % (2-12); NEUTROPHILS # (AUTO) 12.2 X10'3 (1.8-7.7); NEUTROPHILS % (AUTO) 93.7 % (42-75); PLATELET COUNT 286 X10'3 (140-440); RED BLOOD COUNT 2.96 X10'6 (4.70-6.10); RED CELL DISTRIBUTION WIDTH 15.8 % (11.5-14.5)
[2020-04-24 03:20] LABS: ALANINE AMINOTRANSFERASE 33 U/L (12-78); ALBUMIN 1.9 G/DL (3.4-5.0); ALBUMIN/GLOBULIN RATIO 0.4 (1.1-1.5); ALKALINE PHOSPHATASE 130 IU/L (46-116); ANION GAP 11 (8-16); ASPARTATE AMINO TRANSFERASE 15 U/L (10-37); BILIRUBIN,TOTAL 0.3 MG/DL (0.1-1.0); BLOOD UREA NITROGEN 52 MG/DL (7-18); BUN/CREATININE RATIO 18.1 (5.4-32.0); CALCIUM 9.2 MG/DL (8.5-10.1); CHLORIDE 99 MMOL/L (99-107); CREATININE 2.87 MG/DL (0.60-1.10); GLUCOSE 331 MG/DL (70-104); POTASSIUM 3.4 MMOL/L (3.5-5.1); SODIUM 137 MMOL/L (135-145); TOTAL CARBON DIOXIDE 27.5 MMOL/L (24-32); TOTAL PROTEIN 7.2 G/DL (6.4-8.2); eGFR 23 ML/MIN
[2020-04-24 03:21] LABS: MAGNESIUM 1.9 MG/DL (1.5-2.4); PHOSPHORUS 3.2 MG/DL (2.3-4.5); VANCOMYCIN,RANDOM 18.8 UG/ML
[2020-04-24] MEDS ORDERED: potassium Cl 20mEq/100mL bag 100 ML IV PRN (03:35)
[2020-04-24 04:15] LABS: ABG BASE EXCESS 0.9 mmol/L (-2.0-2.0); ABG HCO3 23.8 mmol/L (22.0-26.0); ABG OXYGEN SATURATION 92.9 % (94-97); ABG PCO2 (T) 30.4 mmHg (35.0-48.0); FCOHb 0.3 % (0.0-3.9); FMetHb 0.3 % (0.0-1.5); FO2Hb 92.3 % (94-97); PATIENT TEMPERATURE 36.5; PEEP 8 cm H2O; RESPIRATORY RATE 20 b/min; TIDAL VOLUME 500 mL; TOTAL HEMOGLOBIN 8.9 G/dl (14.0-18.0)
--- NOTE | 2020-04-24 06:00 | NUR ---
RN Note -Pt has been hypertensive, increased oxygen demands, not responsive. Sedation turned up to help with high vent pressures and O2 demands.
[2020-04-24] MEDS ORDERED: MULTIVIT-MIN/FERROUS GLUCONATE 9 MG/15 ML LIQUID PO SCH (08:00)
[2020-04-24] MEDS: MULTIVIT-MIN/FERROUS GLUCONATE 9 MG/15 ML LIQUID OGT SCH (09:19)
[2020-04-24] MEDS: tacrolimus anhydrous 1mg capsule OGT SCH ×2 (09:20→20:56)
[2020-04-24] MEDS: furosemide 40mg/4ml inj IV SCH ×2 (09:21→20:55)
[2020-04-24] MEDS: amitriptyline 50mg tablet OGT SCH ×2 (09:21→20:56)
[2020-04-24] MEDS: cloNIDine 0.1 mg tablet OGT SCH ×3 (09:21→20:55)
[2020-04-24] MEDS: piperacillin/tazo 3.375gm/50ml 50 ML IV SCH ×3 (09:21→16:58)
[2020-04-24] MEDS: HYDROmorphone 1 mg/ml syringe IV PRN (09:22)
[2020-04-24] MEDS: pantoprazole 40 MG vial IV SCH (09:22)
[2020-04-24] MEDS: vitamin D (cholecalciferol) 1,000 unit tablet OGT SCH (09:23)
[2020-04-24] MEDS: heparin, porcine 5000 units/ml vial SQ SCH ×2 (09:23→20:55)
--- NOTE | 2020-04-24 18:35 | NUR ---
gave report to OMERO RN
[2020-04-24] MEDS ORDERED: insulin Lispro (HumaLOG) vial - multi-dose SQ SCH (18:45)
[2020-04-24] MEDS: insulin glargine (Lantus) pen - multi-dose SQ SCH (22:12)
[2020-04-24] MEDS: hydrALAZINE 20mg/ml inj. IV PRN (22:45)
[2020-04-25] VITALS (24 sets, daily range): BP systolic 121–182; BP diastolic 32–98
[2020-04-25] MEDS: piperacillin/tazo 3.375gm/50ml 50 ML IV SCH ×3 (00:25→16:45)
[2020-04-25] MEDS: ipratropium/albuterol 3ml nebule NEB SCH ×6 (02:38→23:12)
[2020-04-25] MEDS: mineral oil/petrolatum ophthal oint EACHEYE SCH ×4 (02:56→20:20)
[2020-04-25] MEDS: methylPREDNISolone sod succ 125mg/2ml vial IV SCH ×2 (02:56→09:28)
[2020-04-25] MEDS: VANCOMYCIN LEVEL IV SCH (02:59)
[2020-04-25] MEDS: insulin regular, human U-100 3ml vial - multi-dose SQ SCH ×4 (03:01→20:24)
[2020-04-25] MEDS: HYDROmorphone 1 mg/ml syringe IV PRN ×2 (03:07→11:39)
[2020-04-25 03:15] LABS: BASOPHILS % (AUTO) 0.1 % (0-1); EOSINOPHILS % (AUTO) 0 % (0-6); HEMOGLOBIN 8.7 g/dl (14.0-17.9); LYMPHOCYTES # (AUTO) 0.7 X10'3 (1.1-4.8); MEAN CORPUSCULAR HEMOGLOBIN 27.3 PG (27.0-31.0); MEAN CORPUSCULAR HGB CONC 32.1 g/dL (33.0-36.5); MEAN CORPUSCULAR VOLUME 85.1 FL (78-98); MONOCYTES # (AUTO) 0.5 X10'3 (0-0.9); MONOCYTES % (AUTO) 2.8 % (2-12); NEUTROPHILS # (AUTO) 16.5 X10'3 (1.8-7.7); NEUTROPHILS % (AUTO) 93.1 % (42-75); PLATELET COUNT 350 X10'3 (140-440); RED BLOOD COUNT 3.17 X10'6 (4.70-6.10); RED CELL DISTRIBUTION WIDTH 15.9 % (11.5-14.5); WHITE BLOOD COUNT 17.7 X10'3 (4.5-11.0)
[2020-04-25 03:20] LABS: ALANINE AMINOTRANSFERASE 45 U/L (12-78); ALBUMIN/GLOBULIN RATIO 0.4 (1.1-1.5); ALKALINE PHOSPHATASE 142 IU/L (46-116); ANION GAP 10 (8-16); ASPARTATE AMINO TRANSFERASE 25 U/L (10-37); BILIRUBIN,TOTAL 0.3 MG/DL (0.1-1.0); BLOOD UREA NITROGEN 69 MG/DL (7-18); BUN/CREATININE RATIO 23.6 (5.4-32.0); CALCIUM 9.1 MG/DL (8.5-10.1); CHLORIDE 100 MMOL/L (99-107); CREATININE 2.92 MG/DL (0.60-1.10); GLUCOSE 242 MG/DL (70-104); POTASSIUM 3.2 MMOL/L (3.5-5.1); SODIUM 141 MMOL/L (135-145); TOTAL CARBON DIOXIDE 30.8 MMOL/L (24-32); TOTAL PROTEIN 7.3 G/DL (6.4-8.2); eGFR 23 ML/MIN
[2020-04-25 03:23] LABS: MAGNESIUM 1.9 MG/DL (1.5-2.4); PHOSPHORUS 3.7 MG/DL (2.3-4.5); VANCOMYCIN,RANDOM 12.4 UG/ML
[2020-04-25 04:30] LABS: ABG BASE EXCESS 3.2 mmol/L (-2.0-2.0); ABG HCO3 26.1 mmol/L (22.0-26.0); ABG OXYGEN SATURATION 88.2 % (94-97); ABG PCO2 (T) 32.5 mmHg (35.0-48.0); FCOHb 0.3 % (0.0-3.9); FMetHb 0.3 % (0.0-1.5); FO2Hb 87.7 % (94-97); PATIENT TEMPERATURE 36.6; PEEP 8 cm H2O; RESPIRATORY RATE 18 b/min; TIDAL VOLUME 500 mL; TOTAL HEMOGLOBIN 9.2 G/dl (14.0-18.0)
[2020-04-25] MEDS: dexmedetomidine inj. 400 MCG in dextrose 5%-water 96 ML IV SCH ×2 (04:32→20:13)
--- NOTE | 2020-04-25 06:00 | NUR ---
RN Note -Shift Summary Pt continues to be hypertensive and O2 saturation in the low 90's. Slightly more responsive, moving head and grimacing. Still no purposeful movement
[2020-04-25] MEDS: vitamin D (cholecalciferol) 1,000 unit tablet OGT SCH (08:00)
[2020-04-25] MEDS: amitriptyline 50mg tablet OGT SCH ×2 (08:00→20:19)
[2020-04-25] MEDS ORDERED: vancomycin/NS 1 GM ADD-VANTAGE 250 ML IV ONE (09:15)
[2020-04-25] MEDS: pantoprazole 40 MG vial IV SCH (09:27)
[2020-04-25] MEDS: MULTIVIT-MIN/FERROUS GLUCONATE 9 MG/15 ML LIQUID OGT SCH (09:28)
[2020-04-25] MEDS: POTASSIUM BICARB 20meq eff tab 20 MEQ TABLET.EFF OGT PRN (09:28)
[2020-04-25] MEDS: cloNIDine 0.1 mg tablet OGT SCH ×3 (09:28→20:19)
[2020-04-25] MEDS: heparin, porcine 5000 units/ml vial SQ SCH ×2 (09:29→20:20)
[2020-04-25] MEDS: furosemide 40mg/4ml inj IV SCH ×2 (09:30→20:19)
[2020-04-25] MEDS: tacrolimus anhydrous 1mg capsule OGT SCH ×2 (10:33→21:08)
[2020-04-25] MEDS: hydrALAZINE 20mg/ml inj. IV PRN (11:39)
[2020-04-25] MEDS: methylPREDNISolone sod succ/PF 40mg inj. IV SCH ×2 (14:53→20:19)
--- NOTE | 2020-04-25 18:30 | NUR ---
Patient in room ICU 2039. I have received report from SHELBY Wu and had the opportunity to ask questions and assume patient care.
--- NOTE | 2020-04-25 18:41 | NUR ---
gave report to Vanesa RYAN
[2020-04-25] MEDS: insulin glargine (Lantus) pen - multi-dose SQ SCH (20:24)
[2020-04-25] MEDS: midazolam 100mg in NS 100ml 100 ML IV SCH (21:57)
[2020-04-26] VITALS (29 sets, daily range): BP systolic 132–183; BP diastolic 75–102
[2020-04-26] MEDS: piperacillin/tazo 3.375gm/50ml 50 ML IV SCH ×3 (00:12→15:56)
[2020-04-26] MEDS: mineral oil/petrolatum ophthal oint EACHEYE SCH ×4 (02:19→20:16)
[2020-04-26] MEDS: dexmedetomidine inj. 400 MCG in dextrose 5%-water 96 ML IV SCH ×5 (02:19→22:06)
[2020-04-26] MEDS: methylPREDNISolone sod succ/PF 40mg inj. IV SCH ×4 (02:19→20:15)
[2020-04-26] MEDS: insulin regular, human U-100 3ml vial - multi-dose SQ SCH ×4 (02:23→20:12)
[2020-04-26] MEDS: VANCOMYCIN LEVEL IV SCH (03:00)
[2020-04-26] MEDS: ipratropium/albuterol 3ml nebule NEB SCH ×6 (03:13→22:47)
[2020-04-26 03:27] LABS: BASOPHILS % (AUTO) 0.1 % (0-1); EOSINOPHILS % (AUTO) 0 % (0-6); HEMATOCRIT 26.7 % (42.0-52.0); HEMOGLOBIN 8.7 g/dl (14.0-17.9); LYMPHOCYTES # (AUTO) 0.8 X10'3 (1.1-4.8); LYMPHOCYTES % (AUTO) 5.4 % (21-51); MEAN CORPUSCULAR HEMOGLOBIN 27.9 PG (27.0-31.0); MEAN CORPUSCULAR HGB CONC 32.5 g/dL (33.0-36.5); MEAN CORPUSCULAR VOLUME 85.8 FL (78-98); MEAN PLATELET VOLUME 8.1 FL (7.4-10.4); MONOCYTES # (AUTO) 0.8 X10'3 (0-0.9); MONOCYTES % (AUTO) 5.6 % (2-12); NEUTROPHILS # (AUTO) 12.9 X10'3 (1.8-7.7); NEUTROPHILS % (AUTO) 88.9 % (42-75); PLATELET COUNT 384 X10'3 (140-440); RED BLOOD COUNT 3.11 X10'6 (4.70-6.10); RED CELL DISTRIBUTION WIDTH 16.1 % (11.5-14.5); WHITE BLOOD COUNT 14.6 X10'3 (4.5-11.0)
[2020-04-26 03:41] LABS: ALANINE AMINOTRANSFERASE 87 U/L (12-78); ALBUMIN/GLOBULIN RATIO 0.4 (1.1-1.5); ALKALINE PHOSPHATASE 141 IU/L (46-116); ANION GAP 13 (8-16); ASPARTATE AMINO TRANSFERASE 38 U/L (10-37); BILIRUBIN,TOTAL 0.3 MG/DL (0.1-1.0); BLOOD UREA NITROGEN 96 MG/DL (7-18); BUN/CREATININE RATIO 30.8 (5.4-32.0); CALCIUM 8.8 MG/DL (8.5-10.1); CHLORIDE 102 MMOL/L (99-107); CREATININE 3.12 MG/DL (0.60-1.10); GLUCOSE 200 MG/DL (70-104); PHOSPHORUS 4.2 MG/DL (2.3-4.5); SODIUM 143 MMOL/L (135-145); TOTAL CARBON DIOXIDE 27.8 MMOL/L (24-32); TOTAL PROTEIN 6.8 G/DL (6.4-8.2); VANCOMYCIN,RANDOM 17.2 UG/ML; eGFR 21 ML/MIN
[2020-04-26] MEDS: POTASSIUM BICARB 20meq eff tab 20 MEQ TABLET.EFF OGT PRN ×3 (03:51→07:57)
[2020-04-26 03:56] LABS: ABG BASE EXCESS 2.8 mmol/L (-2.0-2.0); ABG HCO3 25.3 mmol/L (22.0-26.0); ABG OXYGEN SATURATION 89.4 % (94-97); ABG PCO2 (T) 31.2 mmHg (35.0-48.0); FCOHb 0.3 % (0.0-3.9); FMetHb 0.3 % (0.0-1.5); FO2Hb 88.9 % (94-97); PATIENT TEMPERATURE 37.2; PEEP 12 cm H2O; RESPIRATORY RATE 18 b/min; TIDAL VOLUME 500 mL; TOTAL HEMOGLOBIN 9.4 G/dl (14.0-18.0)
[2020-04-26] MEDS: midazolam 100mg in NS 100ml 100 ML IV SCH ×2 (06:41→19:26)
--- NOTE | 2020-04-26 06:41 | NUR ---
Problems reprioritized. Patient report given, questions answered & plan of care reviewed with SHELBY Trinh and SHELBY Huffman.
[2020-04-26] MEDS: pantoprazole 40 MG vial IV SCH (07:55)
[2020-04-26] MEDS: furosemide 40mg/4ml inj IV SCH (07:55)
[2020-04-26] MEDS: MULTIVIT-MIN/FERROUS GLUCONATE 9 MG/15 ML LIQUID OGT SCH (07:56)
[2020-04-26] MEDS: vitamin D (cholecalciferol) 1,000 unit tablet OGT SCH (07:57)
[2020-04-26] MEDS: cloNIDine 0.1 mg tablet OGT SCH ×3 (07:57→22:00)
[2020-04-26] MEDS: amitriptyline 50mg tablet OGT SCH ×2 (07:58→20:16)
[2020-04-26] MEDS: heparin, porcine 5000 units/ml vial SQ SCH (07:59)
[2020-04-26] MEDS ORDERED: rocuronium 10mg/ml inj IV ONE (08:00)
[2020-04-26] MEDS ORDERED: sod chloride 0.9% 10ml flush syringe IV ONE (08:00)
[2020-04-26] MEDS: tacrolimus anhydrous 1mg capsule OGT SCH ×2 (08:05→20:38)
[2020-04-26] MEDS ORDERED: LIDOcaine 4% (40 mg/ml) topical solution 50ml INH ONE (09:10)
[2020-04-26] MEDS ORDERED: LIDOcaine 4% (40 mg/ml) topical solution 50ml MM ONE (09:10)
[2020-04-26] MEDS ORDERED: midazolam 2 mg/2 ml injection IV PRN (09:10)
[2020-04-26] MEDS ORDERED: epiNEPHrine 1 mg/ml inj IR PRN (09:10)
[2020-04-26] MEDS ORDERED: phenylephrine 1% (X-tra strg) 15ml nasal spray NS ONE (09:10)
[2020-04-26] MEDS ORDERED: CISatracurium **Bolus** 2 mg/ml inj IV ONE (09:30)
[2020-04-26] MEDS: HYDROmorphone 1 mg/ml syringe IV PRN ×2 (09:36→15:01)
--- NOTE | 2020-04-26 11:12 | NUR ---
Reassessment: Pt tolerating TF at goal GRV WNL. LBM 04/25. K 3.0 receiving lasix and electrolyte replacements per protocol. Will continue to monitor. Recommend: 1. continuos tube feeding per OG tube using Nepro at goal rate of 50 ml/hr will provide total volume of 1200 ml, 2160 tonja, 97 g protein, and 872 ml water. 2. additional water flush per MD 3. prealbumin q monday/ 4. daily weights 5. consider increase to 55ml/hr using Nepro if MD agreeable given protein needs on vent Addendum: 04/26/20 at [address] Amended: Links added.
--- NOTE | 2020-04-26 11:36 | NUR ---
1000- patient given 1mg dilaudid, restless as by moving legs, and as a premed for bronch, medicated with 10 of nimbex, pt still moving and cough present, administered 50mg ruth per Dr Bailey at bedside during procedure. For procedure patient placed on 100% FIO2. Patient tolerated well. VSS. \
[2020-04-26] MEDS ORDERED: linezolid 600mg/300ml PREMIX 300 ML IV ONE (17:20)
--- NOTE | 2020-04-26 18:15 | NUR ---
Patient in room ICU 2039. I have received report from Radha RYAN and had the opportunity to ask questions and assume patient care. Pt received orally intubated on AC/PRVC mode FIO2 85% TV 500Rate 16 +12 PEEP, ETT @24cm lip and secure with anchorfast. Rhythm is sinus without ectopy. Right subclavian central line is transduced CVP reads 12. Versed drip at 8mg/hr, Precedex drip at 0.6 mcg/kg/min. OGT taped securely to ETT. Continuous enteric feedings of Nepro at goal rate 50ml/hr. HOB elevated 30 degrees. Bilateral soft wrist restraints secure. Pt is in custody and officer is nearby in adjoining room. RASS -2. Indwelling gu drains clear yellow urine with white sediment noted along tubing. Rectal tube with brown liquid stool. No distress at shift change.
[2020-04-26] MEDS: linezolid 600mg/300ml PREMIX 300 ML IV SCH (20:19)
[2020-04-26] MEDS: insulin glargine (Lantus) pen - multi-dose SQ SCH (20:27)
[2020-04-26] MEDS: enoxaparin 100mg/ml syringe SUBCUT SCH (20:38)
[2020-04-26] MEDS: hydrALAZINE 20mg/ml inj. IV PRN (23:58)
[2020-04-27] VITALS (35 sets, daily range): BP systolic 120–185; BP diastolic 63–98
[2020-04-27] MEDS: piperacillin/tazo 3.375gm/50ml 50 ML IV SCH ×3 (00:08→16:03)
[2020-04-27] MEDS: mineral oil/petrolatum ophthal oint EACHEYE SCH ×4 (02:16→20:52)
[2020-04-27] MEDS: methylPREDNISolone sod succ/PF 40mg inj. IV SCH ×4 (02:16→20:51)
[2020-04-27] MEDS: insulin regular, human U-100 3ml vial - multi-dose SQ SCH ×4 (02:21→20:26)
[2020-04-27] MEDS: dexmedetomidine inj. 400 MCG in dextrose 5%-water 96 ML IV SCH ×5 (02:27→22:52)
[2020-04-27] MEDS: VANCOMYCIN LEVEL IV SCH (02:44)
[2020-04-27 03:00] LABS: BASOPHILS % (AUTO) 0.1 % (0-1); EOSINOPHILS % (AUTO) 0 % (0-6); HEMATOCRIT 27.8 % (42.0-52.0); HEMOGLOBIN 8.9 g/dl (14.0-17.9); LYMPHOCYTES # (AUTO) 0.9 X10'3 (1.1-4.8); LYMPHOCYTES % (AUTO) 6.4 % (21-51); MEAN CORPUSCULAR HEMOGLOBIN 27.9 PG (27.0-31.0); MEAN CORPUSCULAR HGB CONC 32.2 g/dL (33.0-36.5); MEAN CORPUSCULAR VOLUME 86.8 FL (78-98); MEAN PLATELET VOLUME 8.1 FL (7.4-10.4); MONOCYTES # (AUTO) 0.9 X10'3 (0-0.9); MONOCYTES % (AUTO) 6.1 % (2-12); NEUTROPHILS # (AUTO) 12.7 X10'3 (1.8-7.7); NEUTROPHILS % (AUTO) 87.4 % (42-75); PLATELET COUNT 361 X10'3 (140-440); RED CELL DISTRIBUTION WIDTH 15.7 % (11.5-14.5); WHITE BLOOD COUNT 14.5 X10'3 (4.5-11.0)
[2020-04-27] MEDS: ipratropium/albuterol 3ml nebule NEB SCH ×6 (03:00→22:47)
[2020-04-27 03:07] LABS: ALANINE AMINOTRANSFERASE 152 U/L (12-78); ALBUMIN 2.2 G/DL (3.4-5.0); ALBUMIN/GLOBULIN RATIO 0.5 (1.1-1.5); ALKALINE PHOSPHATASE 132 IU/L (46-116); ANION GAP 8 (8-16); ASPARTATE AMINO TRANSFERASE 41 U/L (10-37); BILIRUBIN,TOTAL 0.3 MG/DL (0.1-1.0); BLOOD UREA NITROGEN 102 MG/DL (7-18); BUN/CREATININE RATIO 34.2 (5.4-32.0); CALCIUM 8.6 MG/DL (8.5-10.1); CHLORIDE 104 MMOL/L (99-107); CREATININE 2.98 MG/DL (0.60-1.10); GLUCOSE 213 MG/DL (70-104); PHOSPHORUS 4.6 MG/DL (2.3-4.5); POTASSIUM 3.8 MMOL/L (3.5-5.1); PREALBUMIN 47.7 MG/DL (19-36); SODIUM 143 MMOL/L (135-145); TOTAL CARBON DIOXIDE 30.7 MMOL/L (24-32); TOTAL PROTEIN 6.8 G/DL (6.4-8.2); VANCOMYCIN,RANDOM 10.8 UG/ML; eGFR 22 ML/MIN
[2020-04-27 04:51] LABS: ABG BASE EXCESS 1.5 mmol/L (-2.0-2.0); ABG PCO2 (T) 34.9 mmHg (35.0-48.0); ABG PO2 (T) 77.2 mmHg (75.0-100.0); FCOHb 0.3 % (0.0-3.9); FMetHb 0.3 % (0.0-1.5); FO2Hb 93.4 % (94-97); PATIENT TEMPERATURE 36.9; PEEP 12 cm H2O; RESPIRATORY RATE 16 b/min; TIDAL VOLUME 500 mL; TOTAL HEMOGLOBIN 9.5 G/dl (14.0-18.0)
[2020-04-27] MEDS: midazolam 100mg in NS 100ml 100 ML IV SCH ×2 (05:12→16:02)
--- NOTE | 2020-04-27 06:15 | NUR ---
Problems reprioritized. Patient report given, questions answered & plan of care reviewed with Nathaly RYAN.
[2020-04-27] MEDS: tacrolimus anhydrous 1mg capsule OGT SCH ×2 (07:49→22:20)
[2020-04-27] MEDS: pantoprazole 40 MG vial IV SCH (07:49)
[2020-04-27] MEDS: amitriptyline 50mg tablet OGT SCH ×2 (07:50→20:52)
[2020-04-27] MEDS: vitamin D (cholecalciferol) 1,000 unit tablet OGT SCH (07:50)
[2020-04-27] MEDS: MULTIVIT-MIN/FERROUS GLUCONATE 9 MG/15 ML LIQUID OGT SCH (07:50)
[2020-04-27] MEDS: cloNIDine 0.1 mg tablet OGT SCH ×3 (07:51→20:30)
[2020-04-27] MEDS: linezolid 600mg/300ml PREMIX 300 ML IV SCH ×2 (07:51→20:26)
[2020-04-27] MEDS: enoxaparin 100mg/ml syringe SUBCUT SCH (07:52)
--- NOTE | 2020-04-27 10:47 | NUR ---
Patient in room ICU 2039. I have received report from Earlene and had the opportunity to ask questions and assume patient care.
--- NOTE | 2020-04-27 10:47 | NUR ---
1030- Critical care rounds completed. Patient to go for NM of lungs today, approx at 1300, vascular lab us of bilat legs today, scd off until clot ruled out. Dr Gunter wants stool for blood, spot urine for creatinine, protein, sodium, urea and BUN. Tacrolimus level in am. Call nursing home to determine if patient was on any other antirejection meds. Wean down Peep as able. 1045- stool and urine sent, no response from nursing home. Continue to reach out.
[2020-04-27 11:12] LABS: TOTAL PROTEIN,URINE RANDOM 71.7 MG/DL
--- NOTE | 2020-04-27 12:26 | NUR ---
1200 US of BLE clear, awaiting NM study. Spoke with the intermediate. per the PA there, pt has only been on prograf no 2ndary anti-rejection meds.
[2020-04-27] MEDS: HYDROmorphone 1 mg/ml syringe IV PRN ×2 (12:50→18:40)
[2020-04-27 15:41] LABS: OCCULT BLOOD STOOL NEGATIVE (Neg)
--- NOTE | 2020-04-27 16:40 | NUR ---
[id number] - down to [facility], scan completed, patient tolerated well. back to room at 1600, resumed tube feed and treated with insulin for earlier accu check.
[2020-04-27] MEDS: hydrALAZINE 20mg/ml inj. IV PRN (17:12)
--- NOTE | 2020-04-27 18:15 | NUR ---
Patient in room ICU 2039. I have received report from Radha RYAN and had the opportunity to ask questions and assume patient care. Pt received orally intubated ETT @ 22cm teeth anchored securely with anchorfast. Vent settings A/C PRVC FIO2 75% rate 16 TV 500 + 10 PEEP. Observed RR 16/mi , TV 527. Rhythm is sinus 78 without ectopy. Right subclavian quad lumen central line is transduced. Versed infusing at 8mg/hr, [id number] infusing at 0.6mcg/kg/min. OGT taped to ETT with continuous tube feedings Nepro full strength at goal rate 50 ml/hr. HOB elevated 30 degrees. Lopez drains clear yellow urine. Rectal bag with liquid brown stool. No distress at shift change.
--- NOTE | 2020-04-27 18:16 | NUR ---
Problems reprioritized. Patient report given, questions answered & plan of care reviewed with Earlene.
[2020-04-27] MEDS: insulin glargine (Lantus) pen - multi-dose SQ SCH (23:17)
[2020-04-28] VITALS (23 sets, daily range): BP systolic 91–178; BP diastolic 57–96
[2020-04-28] MEDS: hydrALAZINE 20mg/ml inj. IV PRN (01:38)
[2020-04-28] MEDS: methylPREDNISolone sod succ/PF 40mg inj. IV SCH ×4 (01:53→21:25)
[2020-04-28] MEDS: mineral oil/petrolatum ophthal oint EACHEYE SCH ×4 (01:53→21:25)
[2020-04-28] MEDS: insulin regular, human U-100 3ml vial - multi-dose SQ SCH ×3 (02:09→21:03)
[2020-04-28] MEDS: ipratropium/albuterol 3ml nebule NEB SCH ×6 (02:42→23:01)
[2020-04-28 02:45] LABS: BASOPHILS % (AUTO) 0.2 % (0-1); EOSINOPHILS % (AUTO) 0 % (0-6); HEMATOCRIT 28.1 % (42.0-52.0); LYMPHOCYTES # (AUTO) 1.1 X10'3 (1.1-4.8); LYMPHOCYTES % (AUTO) 6.7 % (21-51); MEAN CORPUSCULAR HGB CONC 32.2 g/dL (33.0-36.5); MEAN CORPUSCULAR VOLUME 86.9 FL (78-98); MEAN PLATELET VOLUME 8.4 FL (7.4-10.4); MONOCYTES # (AUTO) 0.9 X10'3 (0-0.9); MONOCYTES % (AUTO) 5.2 % (2-12); NEUTROPHILS # (AUTO) 15.2 X10'3 (1.8-7.7); NEUTROPHILS % (AUTO) 87.9 % (42-75); PLATELET COUNT 363 X10'3 (140-440); RED BLOOD COUNT 3.24 X10'6 (4.70-6.10); RED CELL DISTRIBUTION WIDTH 15.7 % (11.5-14.5); WHITE BLOOD COUNT 17.2 X10'3 (4.5-11.0)
[2020-04-28] MEDS: midazolam 100mg in NS 100ml 100 ML IV SCH ×3 (02:51→22:24)
[2020-04-28 03:09] LABS: ALANINE AMINOTRANSFERASE 148 U/L (12-78); ALBUMIN 2.3 G/DL (3.4-5.0); ALBUMIN/GLOBULIN RATIO 0.5 (1.1-1.5); ALKALINE PHOSPHATASE 114 IU/L (46-116); ANION GAP 11 (8-16); ASPARTATE AMINO TRANSFERASE 36 U/L (10-37); BILIRUBIN,TOTAL 0.3 MG/DL (0.1-1.0); BLOOD UREA NITROGEN 92 MG/DL (7-18); BUN/CREATININE RATIO 33.2 (5.4-32.0); CALCIUM 8.7 MG/DL (8.5-10.1); CHLORIDE 107 MMOL/L (99-107); CREATININE 2.77 MG/DL (0.60-1.10); GLUCOSE 193 MG/DL (70-104); MAGNESIUM 2.2 MG/DL (1.5-2.4); PHOSPHORUS 4.9 MG/DL (2.3-4.5); POTASSIUM 3.8 MMOL/L (3.5-5.1); SODIUM 146 MMOL/L (135-145); TOTAL CARBON DIOXIDE 27.8 MMOL/L (24-32); TOTAL PROTEIN 6.7 G/DL (6.4-8.2); eGFR 24 ML/MIN
[2020-04-28 04:10] LABS: ABG BASE EXCESS 2.8 mmol/L (-2.0-2.0); ABG HCO3 26.2 mmol/L (22.0-26.0); ABG OXYGEN SATURATION 93.8 % (94-97); ABG PCO2 (T) 35.6 mmHg (35.0-48.0); ABG PO2 (T) 71.7 mmHg (75.0-100.0); FCOHb 0.3 % (0.0-3.9); FMetHb 0.3 % (0.0-1.5); FO2Hb 93.2 % (94-97); PEEP 10 cm H2O; RESPIRATORY RATE 16 b/min; TIDAL VOLUME 500 mL
[2020-04-28] MEDS: HYDROmorphone 1 mg/ml syringe IV PRN ×3 (04:16→21:49)
[2020-04-28] MEDS: dexmedetomidine inj. 400 MCG in dextrose 5%-water 96 ML IV SCH ×4 (04:23→21:19)
--- NOTE | 2020-04-28 06:19 | NUR ---
Problems reprioritized. Patient report given, questions answered & plan of care reviewed with Nathaly RYAN.
[2020-04-28] MEDS: pantoprazole 40 MG vial IV SCH (08:03)
[2020-04-28] MEDS: enoxaparin 100mg/ml syringe SUBCUT SCH (08:03)
[2020-04-28] MEDS: MULTIVIT-MIN/FERROUS GLUCONATE 9 MG/15 ML LIQUID OGT SCH (08:04)
[2020-04-28] MEDS: piperacillin/tazo 3.375gm/50 ML IV SCH ×2 (08:04→21:50)
[2020-04-28] MEDS: tacrolimus anhydrous 1mg capsule OGT SCH ×2 (08:04→21:16)
[2020-04-28] MEDS: linezolid 600mg/300ml PREMIX 300 ML IV SCH ×2 (08:04→21:19)
[2020-04-28] MEDS: amitriptyline 50mg tablet OGT SCH ×2 (08:05→21:18)
[2020-04-28] MEDS: cloNIDine 0.1 mg tablet OGT SCH ×3 (08:05→21:15)
[2020-04-28] MEDS: vitamin D (cholecalciferol) 1,000 unit tablet OGT SCH (08:06)
[2020-04-28 11:05] LABS: OXYGEN SATURATION (MIXED VEN) 81.2 % (60-80); PO2 MIXED VENOUS (TEMP COR) 42.9 mmHg (35-46)
[2020-04-28] MEDS: furosemide 10 MG/1 ML 10ml inj IV SCH ×2 (14:48→21:16)
[2020-04-28] MEDS ORDERED: furosemide 10 MG/1 ML 10ml inj IV SCH (16:00)
--- NOTE | 2020-04-28 18:30 | NUR ---
Patient in room ICU 2039. I have received report from Ntahaly RYAN and had the opportunity to ask questions and assume patient care. Pt received orally intubated, awake alert & calm. ETT #8.0 @ 23cm teeth is secure with anchorfast. Vent mode is A/c PRVC FIO2 is 75% TV 650 Rate 16 +10 PEEP.Oxygen saturation is 92% Rhythm is sinus without ectopy.OGT taped to ETT . HOB elevated 30 degrees. Right subclavian line with Versed & precedex drips. Right femoral arterial line is intact, dressing is clean & dry. Left femoral aletha cath is leaking blood, clots noted. Dressing changed. Bath rendered at this time. No distress at shift change.
--- NOTE | 2020-04-28 18:45 | NUR ---
Distal port of quad lumen Central line is occluded.CVP transduced via faith port.
[2020-04-28] MEDS: insulin glargine (Lantus) pen - multi-dose SQ SCH (21:09)
[2020-04-28] MEDS ORDERED: gelatin sponge, absorbable (Gelfoam 12-7MM) sponge TP ONE (21:35)
[2020-04-28] MEDS ORDERED: gelatin sponge, absorbable (Gelfoam 100) sponge TP ONE (21:35)
--- NOTE | 2020-04-28 22:00 | NUR ---
Left femoral aletha cath site is leaky. Neena Ibarra updated, dressing changed & Gel foam applied.
[2020-04-28] MEDS ORDERED: tPA-cathflo 2 MG/2 ml IV flush IVF ONE (22:40)
[2020-04-29] VITALS (24 sets, daily range): BP systolic 82–139; BP diastolic 45–85
[2020-04-29 01:08] LABS: BASOPHILS % (AUTO) 0.1 % (0-1); EOSINOPHILS % (AUTO) 0.1 % (0-6); HEMATOCRIT 29.7 % (42.0-52.0); HEMOGLOBIN 9.4 g/dl (14.0-17.9); LYMPHOCYTES # (AUTO) 1.1 X10'3 (1.1-4.8); LYMPHOCYTES % (AUTO) 4.8 % (21-51); MEAN CORPUSCULAR HEMOGLOBIN 28.1 PG (27.0-31.0); MEAN CORPUSCULAR HGB CONC 31.7 g/dL (33.0-36.5); MEAN CORPUSCULAR VOLUME 88.8 FL (78-98); MONOCYTES % (AUTO) 4.4 % (2-12); NEUTROPHILS # (AUTO) 21.5 X10'3 (1.8-7.7); NEUTROPHILS % (AUTO) 90.6 % (42-75); PLATELET COUNT 419 X10'3 (140-440); RED BLOOD COUNT 3.35 X10'6 (4.70-6.10); RED CELL DISTRIBUTION WIDTH 15.9 % (11.5-14.5); WHITE BLOOD COUNT 23.8 X10'3 (4.5-11.0)
[2020-04-29 01:24] LABS: ALANINE AMINOTRANSFERASE 132 U/L (12-78); ALBUMIN 2.4 G/DL (3.4-5.0); ALBUMIN/GLOBULIN RATIO 0.5 (1.1-1.5); ALKALINE PHOSPHATASE 107 IU/L (46-116); ANION GAP 13 (8-16); ASPARTATE AMINO TRANSFERASE 32 U/L (10-37); BILIRUBIN,TOTAL 0.3 MG/DL (0.1-1.0); BLOOD UREA NITROGEN 96 MG/DL (7-18); BUN/CREATININE RATIO 33.3 (5.4-32.0); CALCIUM 8.9 MG/DL (8.5-10.1); CHLORIDE 107 MMOL/L (99-107); CREATININE 2.88 MG/DL (0.60-1.10); GLUCOSE 168 MG/DL (70-104); PHOSPHORUS 4.9 MG/DL (2.3-4.5); POTASSIUM 3.6 MMOL/L (3.5-5.1); SODIUM 146 MMOL/L (135-145); TOTAL CARBON DIOXIDE 26.5 MMOL/L (24-32); TOTAL PROTEIN 6.8 G/DL (6.4-8.2); eGFR 23 ML/MIN
[2020-04-29 01:27] LABS: TOTAL CELLS COUNTED 100
[2020-04-29 01:28] LABS: ANISOCYTOSIS 1+; MICROCYTOSIS FEW; PLATELET ESTIMATE NORMAL
[2020-04-29] MEDS: insulin regular, human U-100 3ml vial - multi-dose SQ SCH ×4 (02:04→20:45)
[2020-04-29 02:25] LABS: PARTIAL THROMBOPLASTIN TIME 24 SECONDS (22-32)
[2020-04-29] MEDS: methylPREDNISolone sod succ/PF 40mg inj. IV SCH ×4 (02:45→20:40)
[2020-04-29] MEDS: mineral oil/petrolatum ophthal oint EACHEYE SCH ×4 (02:45→20:38)
[2020-04-29] MEDS: ipratropium/albuterol 3ml nebule NEB SCH ×6 (03:05→23:35)
[2020-04-29] MEDS: midazolam 100mg in NS 100ml 100 ML IV SCH ×3 (03:50→23:48)
[2020-04-29 04:26] LABS: ABG BASE EXCESS -0.6 mmol/L (-2.0-2.0); ABG HCO3 21.7 mmol/L (22.0-26.0); ABG OXYGEN SATURATION 94.1 % (94-97); ABG PCO2 (T) 29.4 mmHg (35.0-48.0); ABG PO2 (T) 80.4 mmHg (75.0-100.0); FCOHb 0.3 % (0.0-3.9); FMetHb 0.3 % (0.0-1.5); FO2Hb 93.5 % (94-97); PATIENT TEMPERATURE 37.9; PEEP 10 cm H2O; RESPIRATORY RATE 16 b/min; TIDAL VOLUME 650 mL; TOTAL HEMOGLOBIN 10.4 G/dl (14.0-18.0)
[2020-04-29] MEDS: HYDROmorphone 1 mg/ml syringe IV PRN ×2 (05:55→22:11)
[2020-04-29] MEDS: dexmedetomidine inj. 400 MCG in dextrose 5%-water 96 ML IV SCH ×4 (06:01→21:47)
--- NOTE | 2020-04-29 06:30 | NUR ---
Patient in room ICU 2039. I have received report from Earlene RYAN and had the opportunity to ask questions and assume patient care. Patient laying in bed with eyes closed, on ventilator fio2 75% peep of 10, Art line to right groin being transduced, drips running as ordered to R subclavian central line, L groin Sundeep oozy dressing re-inforced. Vital signs stable will continue to monitor
[2020-04-29] MEDS: enoxaparin 100mg/ml syringe SUBCUT SCH (08:02)
[2020-04-29] MEDS: pantoprazole 40 MG vial IV SCH (08:02)
[2020-04-29] MEDS: MULTIVIT-MIN/FERROUS GLUCONATE 9 MG/15 ML LIQUID OGT SCH (08:03)
[2020-04-29] MEDS: vitamin D (cholecalciferol) 1,000 unit tablet OGT SCH (08:03)
[2020-04-29] MEDS: amitriptyline 50mg tablet OGT SCH ×2 (08:03→20:40)
[2020-04-29] MEDS: cloNIDine 0.1 mg tablet OGT SCH ×3 (08:03→20:41)
[2020-04-29] MEDS: piperacillin/tazo 3.375gm/50 ML IV SCH ×2 (08:04→20:40)
[2020-04-29] MEDS: linezolid 600mg/300ml PREMIX 300 ML IV SCH ×2 (08:04→20:36)
[2020-04-29] MEDS: furosemide 10 MG/1 ML 10ml inj IV SCH ×3 (08:04→23:47)
[2020-04-29] MEDS: tacrolimus anhydrous 1mg capsule OGT SCH ×2 (08:05→20:38)
--- NOTE | 2020-04-29 14:00 | NUR ---
Rounds note Per Dr. Gunter he expects that if patient does not improve in the next few days that he will likely end up on the rotoprone bed. New orders, D/C metaneb, Prop patient up as far left and right has possible with turns and try to keep legs as low as possible, " dont prop his feet up on pillows" he would like to take as much stress off of his diaphragm as possible to improve his ventilation. He would like to have mixed venous gases daily for 3 days. He would like PT to work with the patient in achieving in getting the patient to dangle at the side of the bed and possibly to a chair. He is also going to add spironolactone to increase diuresis.
--- NOTE | 2020-04-29 16:30 | NUR ---
Called Dr. Gunter in regards to patients low blood pressure, he asked what patients I&O is for the last 24hrs, his current mixed venous results and current ventilator settings. Informed him with all the answers that he requested. He gave me the order to manually prone patient for two hours to see if it will help improve the patients pressures and to hold the lasix. No other new orders at this time
--- NOTE | 2020-04-29 16:35 | NUR ---
called Charge nurse Jenae RYAN to inform her that Dr. Gunter would like for us to manually prone the patient for two hours. She informed me that we do not have a policy for it.
[2020-04-29 17:11] LABS: OXYGEN SATURATION (MIXED VEN) 66.3 % (60-80); PO2 MIXED VENOUS (TEMP COR) 38.9 mmHg (35-46)
--- NOTE | 2020-04-29 18:14 | NUR ---
Problems reprioritized. Patient report given, questions answered & plan of care reviewed with .
--- NOTE | 2020-04-29 18:25 | NUR ---
Patient in room ICU 2039. I have received report from Jo RYAN and had the opportunity to ask questions and assume patient care.
[2020-04-29] MEDS: insulin glargine (Lantus) pen - multi-dose SQ SCH (20:46)
[2020-04-29] MEDS ORDERED: spironolactone 25 MG tablet NG SCH (21:00)
[2020-04-29] MEDS: NORepinephrine 8mg/ 250ml NS 250 ML IV PRN (22:32)
[2020-04-30] VITALS (24 sets, daily range): BP systolic 96–130; BP diastolic 49–75
[2020-04-30] MEDS: dexmedetomidine inj. 400 MCG in dextrose 5%-water 96 ML IV SCH ×5 (01:11→20:28)
[2020-04-30] MEDS: methylPREDNISolone sod succ/PF 40mg inj. IV SCH ×2 (02:41→07:19)
[2020-04-30] MEDS: mineral oil/petrolatum ophthal oint EACHEYE SCH ×4 (02:41→20:27)
[2020-04-30] MEDS: HYDROmorphone 1 mg/ml syringe IV PRN ×5 (02:42→23:46)
[2020-04-30] MEDS: insulin regular, human U-100 3ml vial - multi-dose SQ SCH ×4 (02:44→20:48)
[2020-04-30 02:48] LABS: BASOPHILS # (AUTO) 0.1 X10'3 (0-0.2); BASOPHILS % (AUTO) 0.2 % (0-1); EOSINOPHILS % (AUTO) 0.1 % (0-6); HEMATOCRIT 24.6 % (42.0-52.0); HEMOGLOBIN 7.9 g/dl (14.0-17.9); LYMPHOCYTES # (AUTO) 1.3 X10'3 (1.1-4.8); MEAN CORPUSCULAR VOLUME 87.5 FL (78-98); MEAN PLATELET VOLUME 8.7 FL (7.4-10.4); MONOCYTES # (AUTO) 1.1 X10'3 (0-0.9); MONOCYTES % (AUTO) 4.3 % (2-12); NEUTROPHILS # (AUTO) 23.7 X10'3 (1.8-7.7); NEUTROPHILS % (AUTO) 90.4 % (42-75); PLATELET COUNT 418 X10'3 (140-440); RED BLOOD COUNT 2.81 X10'6 (4.70-6.10); RED CELL DISTRIBUTION WIDTH 16.1 % (11.5-14.5)
[2020-04-30 02:53] LABS: WHITE BLOOD COUNT 26.2 X10'3 (4.5-11.0)
[2020-04-30] MEDS: ipratropium/albuterol 3ml nebule NEB SCH ×6 (02:59→23:03)
[2020-04-30 03:07] LABS: ALANINE AMINOTRANSFERASE 115 U/L (12-78); ALBUMIN 2.3 G/DL (3.4-5.0); ALBUMIN/GLOBULIN RATIO 0.6 (1.1-1.5); ALKALINE PHOSPHATASE 85 IU/L (46-116); ANION GAP 14 (8-16); ASPARTATE AMINO TRANSFERASE 27 U/L (10-37); BILIRUBIN,TOTAL 0.4 MG/DL (0.1-1.0); BLOOD UREA NITROGEN 106 MG/DL (7-18); BUN/CREATININE RATIO 29.1 (5.4-32.0); CALCIUM 8.5 MG/DL (8.5-10.1); CHLORIDE 106 MMOL/L (99-107); CREATININE 3.64 MG/DL (0.60-1.10); GLUCOSE 202 MG/DL (70-104); MAGNESIUM 2.2 MG/DL (1.5-2.4); PHOSPHORUS 7.2 MG/DL (2.3-4.5); POTASSIUM 3.8 MMOL/L (3.5-5.1); SODIUM 142 MMOL/L (135-145); TOTAL CARBON DIOXIDE 22.2 MMOL/L (24-32); TOTAL PROTEIN 6.2 G/DL (6.4-8.2); eGFR 18 ML/MIN
[2020-04-30 03:11] LABS: TOTAL CELLS COUNTED 100
[2020-04-30 03:11] LABS: ABG HCO3 21.7 mmol/L (22.0-26.0); ABG OXYGEN SATURATION 95.5 % (94-97); ABG PCO2 (T) 29.9 mmHg (35.0-48.0); ABG PO2 (T) 90.8 mmHg (75.0-100.0); FCOHb 0.3 % (0.0-3.9); FMetHb 0.3 % (0.0-1.5); FO2Hb 94.9 % (94-97); PATIENT TEMPERATURE 38.1; PEEP 7 cm H2O; RESPIRATORY RATE 16 b/min; TIDAL VOLUME 650 mL; TOTAL HEMOGLOBIN 8.5 G/dl (14.0-18.0)
[2020-04-30 03:12] LABS: ANISOCYTOSIS 2+; HYPERSEGMENTED NEUTROPHILS 1+; PLATELET ESTIMATE NORMAL; TEAR DROP CELLS FEW
[2020-04-30 03:18] LABS: PREALBUMIN 63.2 MG/DL (19-36)
[2020-04-30 03:20] LABS: OXYGEN SATURATION (MIXED VEN) 55.3 % (60-80); PO2 MIXED VENOUS (TEMP COR) 34.9 mmHg (35-46)
--- NOTE | 2020-04-30 06:34 | NUR ---
Problems reprioritized. Patient report given, questions answered & plan of care reviewed with Porsha RYAN.
[2020-04-30] MEDS: linezolid 600mg/300ml PREMIX 300 ML IV SCH (07:14)
[2020-04-30] MEDS: pantoprazole 40 MG vial IV SCH (07:16)
[2020-04-30] MEDS: tacrolimus anhydrous 1mg capsule OGT SCH ×2 (07:18→21:12)
[2020-04-30] MEDS: amitriptyline 50mg tablet OGT SCH ×2 (07:18→20:27)
[2020-04-30] MEDS: MULTIVIT-MIN/FERROUS GLUCONATE 9 MG/15 ML LIQUID OGT SCH (07:18)
[2020-04-30] MEDS: vitamin D (cholecalciferol) 1,000 unit tablet OGT SCH (07:18)
[2020-04-30] MEDS: enoxaparin 100mg/ml syringe SUBCUT SCH (07:19)
[2020-04-30] MEDS: acetaminophen 325mg tablet OGT PRN (07:24)
--- NOTE | 2020-04-30 07:47 | NUR ---
OG not flushing and therefore I'm unable to check placement. No alarms going off from pump, however could not admin medications through tube nor check residuals. Pulled OG tube and placed a new one; flushing much better, auscultated placement.
[2020-04-30] MEDS: midazolam 100mg in NS 100ml 100 ML IV SCH ×2 (07:56→20:28)
[2020-04-30] MEDS: piperacillin/tazo 3.375gm/50 ML IV SCH ×2 (09:00→20:27)
[2020-04-30] MEDS: furosemide 10 MG/1 ML 10ml inj IV SCH ×2 (10:14→15:37)
[2020-04-30] MEDS: cloNIDine 0.1 mg tablet OGT SCH ×3 (10:15→20:28)
[2020-04-30] MEDS: spironolactone 25 MG tablet OGT SCH ×2 (11:12→20:28)
[2020-04-30] MEDS ORDERED: vancomycin/NS 1 GM ADD-VANTAGE 250 ML IV ONE (13:35)
[2020-04-30] MEDS ORDERED: HYDROmorphone 1 mg/ml syringe IV PRN (13:35)
[2020-04-30] MEDS ORDERED: vancomycin/NS 1 GM ADD-VANTAGE 250 ML X 1 DOSE IV ONE (14:05)
[2020-04-30] MEDS ORDERED: vancomycin/NS 1 GM ADD-VANTAGE 250 ML X 1 DOSE IV PRN (14:05)
[2020-04-30] MEDS: propofol 1000mg/100ml bottle 100 ML IV SCH (15:17)
--- NOTE | 2020-04-30 16:30 | NUR ---
Reassessment: Pt tolerating TF at goal GRV WNL. Current tube feeding unable to meet patient's intubation protein needs without providing additional fluids and in view of his prealbumin being 63.2 likely also r/t creatinine of 3.64; Per MD at rounds pt will be placed on rotoprone. LBM small for two days, has rectal tube. Phos elevated, MD aware. Will continue to monitor. Recommend: 1. continuos tube feeding per OG tube using Nepro at goal rate of 50 ml/hr will provide total volume of 1200 ml, 2160 tonja, 97 g protein, and 872 ml water. 2. additional water flush per MD 3. prealbumin q monday/ 4. daily weights Addendum: 04/30/20 at [address]ari Muñoz RD Amended: Links added.
--- NOTE | 2020-04-30 18:15 | NUR ---
Problems reprioritized. Patient report given, questions answered & plan of care reviewed with Vanesa RYAN.
--- NOTE | 2020-04-30 18:30 | NUR ---
Patient in room ICU 2039. I have received report from SHELBY Story and had the opportunity to ask questions and assume patient care.
[2020-04-30 19:52] LABS: TROPONIN I 0.1 NG/ML (0.0-0.05)
[2020-04-30] MEDS ORDERED: lactobacillus rhamnosus 10,000 MMU CELLS/CAPSULE PO SCH (20:00)
[2020-04-30] MEDS: insulin glargine (Lantus) pen - multi-dose SQ SCH (20:50)
[2020-05-01] VITALS (30 sets, daily range): BP systolic 89–145; BP diastolic 47–75
[2020-05-01] MEDS: dexmedetomidine inj. 400 MCG in dextrose 5%-water 96 ML IV SCH ×6 (00:17→20:28)
[2020-05-01] MEDS: VANCOMYCIN LEVEL IV SCH (01:58)
[2020-05-01] MEDS: mineral oil/petrolatum ophthal oint EACHEYE SCH ×4 (02:18→20:23)
[2020-05-01] MEDS: insulin regular, human U-100 3ml vial - multi-dose SQ SCH ×4 (02:35→20:41)
[2020-05-01 02:48] LABS: BASOPHILS % (AUTO) 0 % (0-1); EOSINOPHILS # (AUTO) 0.1 X10'3 (0-0.9); EOSINOPHILS % (AUTO) 0.4 % (0-6); LYMPHOCYTES # (AUTO) 2.6 X10'3 (1.1-4.8); LYMPHOCYTES % (AUTO) 8.8 % (21-51); MEAN CORPUSCULAR HEMOGLOBIN 28.5 PG (27.0-31.0); MEAN CORPUSCULAR HGB CONC 31.9 g/dL (33.0-36.5); MEAN CORPUSCULAR VOLUME 89.5 FL (78-98); MEAN PLATELET VOLUME 8.8 FL (7.4-10.4); MONOCYTES # (AUTO) 1.6 X10'3 (0-0.9); MONOCYTES % (AUTO) 5.6 % (2-12); NEUTROPHILS # (AUTO) 24.8 X10'3 (1.8-7.7); NEUTROPHILS % (AUTO) 85.2 % (42-75); PLATELET COUNT 344 X10'3 (140-440); RED BLOOD COUNT 2.22 X10'6 (4.70-6.10); RED CELL DISTRIBUTION WIDTH 16.1 % (11.5-14.5)
[2020-05-01 02:57] LABS: HEMATOCRIT 19.9 % (42.0-52.0); HEMOGLOBIN 6.3 g/dl (14.0-17.9); WHITE BLOOD COUNT 29.1 X10'3 (4.5-11.0)
[2020-05-01] MEDS: ipratropium/albuterol 3ml nebule NEB SCH ×7 (02:59→22:57)
[2020-05-01 03:06] LABS: ALANINE AMINOTRANSFERASE 79 U/L (12-78); ALBUMIN 2.2 G/DL (3.4-5.0); ALBUMIN/GLOBULIN RATIO 0.6 (1.1-1.5); ALKALINE PHOSPHATASE 69 IU/L (46-116); ANION GAP 15 (8-16); ASPARTATE AMINO TRANSFERASE 17 U/L (10-37); BILIRUBIN,TOTAL 0.3 MG/DL (0.1-1.0); BLOOD UREA NITROGEN 119 MG/DL (7-18); BUN/CREATININE RATIO 31.2 (5.4-32.0); CALCIUM 8.4 MG/DL (8.5-10.1); CHLORIDE 106 MMOL/L (99-107); CREATININE 3.82 MG/DL (0.60-1.10); GLUCOSE 156 MG/DL (70-104); MAGNESIUM 2.4 MG/DL (1.5-2.4); PHOSPHORUS 8.8 MG/DL (2.3-4.5); POTASSIUM 3.8 MMOL/L (3.5-5.1); SODIUM 144 MMOL/L (135-145); TOTAL CARBON DIOXIDE 22.7 MMOL/L (24-32); TOTAL PROTEIN 5.9 G/DL (6.4-8.2); TRIGLYCERIDES 254 MG/DL (20-135); VANCOMYCIN,TROUGH 15.6 UG/ML (6.0-14.0); eGFR 17 ML/MIN
[2020-05-01 03:21] LABS: OXYGEN SATURATION (MIXED VEN) 54.2 % (60-80); PO2 MIXED VENOUS (TEMP COR) 37.6 mmHg (35-46)
[2020-05-01 03:21] LABS: ABG BASE EXCESS -3.3 mmol/L (-2.0-2.0); ABG HCO3 20.3 mmol/L (22.0-26.0); ABG OXYGEN SATURATION 90.5 % (94-97); ABG PCO2 (T) 29.7 mmHg (35.0-48.0); ABG PO2 (T) 64.9 mmHg (75.0-100.0); FCOHb 0.3 % (0.0-3.9); FMetHb 0.2 % (0.0-1.5); PATIENT TEMPERATURE 36.7; PEEP 7 cm H2O; RESPIRATORY RATE 12 b/min; TIDAL VOLUME 650 mL
[2020-05-01 03:26] LABS: ANISOCYTOSIS 2+; PLATELET ESTIMATE NORMAL; TEAR DROP CELLS FEW; TOTAL CELLS COUNTED 100
[2020-05-01 03:32] LABS: MEAN CORPUSCULAR HEMOGLOBIN 28.6 PG (27.0-31.0); MEAN CORPUSCULAR HGB CONC 32.2 g/dL (33.0-36.5); MEAN CORPUSCULAR VOLUME 88.9 FL (78-98); MEAN PLATELET VOLUME 8.4 FL (7.4-10.4); PLATELET COUNT 345 X10'3 (140-440); RED BLOOD COUNT 2.22 X10'6 (4.70-6.10); RED CELL DISTRIBUTION WIDTH 16.5 % (11.5-14.5)
[2020-05-01 03:34] LABS: WHITE BLOOD COUNT 29.3 X10'3 (4.5-11.0)
[2020-05-01 03:35] LABS: HEMATOCRIT 19.8 % (42.0-52.0); HEMOGLOBIN 6.4 g/dl (14.0-17.9)
--- NOTE | 2020-05-01 03:45 | NUR ---
Bruce Shelton [facility] notified of patient's h/h 6.3/19.9. [facility] asked that hemogram be redrawn to confirm accuracy of values and to do a type and screen. hemogram was redrawn and confirmed that patient's h/h is critically low. [facility] was informed that there no signs of patient active bleeding and vital signs are stable on low dose of norepinephrine which he has been on for the last couple of days. Patient is unable to give consent for blood transfusion as he is intubated/sedated and is an inmate. [facility] asked to get more information on the logistics of how to get consent for this patient. Guard called pile driving supervisor and we were informed that there is no one on their end to formally give consent and that the decision would have to be made by the doctor. [facility] was notified of this. [facility] did not give me any new orders at this time and informed me that he would discuss the plan of care with Dr Gunter. Will continue to monitor patient for any signs of bleeding and/or instability/changes in his condition.
[2020-05-01] MEDS ORDERED: pantoprazole 40 MG vial IV ONE (04:00)
--- NOTE | 2020-05-01 04:15 | NUR ---
New orders for blood transfusion received. Blood bank asked for clarification for having the blood irradiated, blood bank informed me that obtaining a unit of irradiated blood would take hours. Getting it from [facility] would mean getting the blood at 0800 and our local blood bank opens at that time. [employer]M[facility] [employer] Bruce Shelton was called for clarification and informed about the timeframe in receiving the irradiated blood and he informed me that MD Gunter put in the order and that blood does need to be irradiated and that we will just have to wait for it to be ready for us.
[2020-05-01] MEDS: pantoprazole 40 MG vial IV SCH ×3 (04:48→20:21)
[2020-05-01] MEDS: HYDROmorphone 1 mg/ml syringe IV PRN ×4 (05:11→23:31)
--- NOTE | 2020-05-01 06:15 | NUR ---
Patient in room ICU 2039. I have received report from Vanesa RYAN and had the opportunity to ask questions and assume patient care.
--- NOTE | 2020-05-01 06:45 | NUR ---
Problems reprioritized. Patient report given, questions answered & plan of care reviewed with SHELBY Zamorano.
[2020-05-01] MEDS: midazolam 100mg in NS 100ml 100 ML IV SCH ×2 (07:40→17:43)
[2020-05-01] MEDS: furosemide 10 MG/1 ML 10ml inj IV SCH ×3 (08:00→17:51)
[2020-05-01] MEDS: spironolactone 25 MG tablet OGT SCH ×3 (08:00→20:07)
[2020-05-01] MEDS: amitriptyline 50mg tablet OGT SCH ×2 (08:01→20:21)
[2020-05-01] MEDS: vitamin D (cholecalciferol) 1,000 unit tablet OGT SCH (08:03)
[2020-05-01] MEDS: piperacillin/tazo 3.375gm/50 ML IV SCH ×2 (08:04→20:23)
[2020-05-01] MEDS: MULTIVIT-MIN/FERROUS GLUCONATE 9 MG/15 ML LIQUID OGT SCH (08:04)
[2020-05-01] MEDS: methylPREDNISolone sod succ/PF 40mg inj. IV SCH (08:06)
[2020-05-01] MEDS: cloNIDine 0.1 mg tablet OGT SCH ×3 (08:14→20:07)
[2020-05-01] MEDS ORDERED: heparin 1,000unit/ml 10ml vial 10 ML IV ONE (08:14)
[2020-05-01] MEDS: tacrolimus anhydrous 1mg capsule OGT SCH ×2 (08:14→21:57)
[2020-05-01] MEDS ORDERED: normal saline 1000ml 250 ML IV PRN (08:14)
[2020-05-01] MEDS: enoxaparin 100mg/ml syringe SUBCUT SCH (08:15)
[2020-05-01] MEDS ORDERED: heparin 1,000 units/ml 10ml inj HE ONE ×4 (08:15→08:20)
[2020-05-01] MEDS ORDERED: adenosine 3mg/ml 2ml vial IV ONE ×2 (11:04→11:10)
[2020-05-01] MEDS ORDERED: methylnaltrexone br 12mg/0.6ml inj***SubQ only SQ SCH (11:28)
[2020-05-01 11:35] LABS: OCCULT BLOOD STOOL NEGATIVE (Neg)
[2020-05-01 12:43] LABS: UREA NITROGEN 24HR,URINE 9.4 GM/24HR (7-20)
[2020-05-01] MEDS: esmolol/sodium cl bag 250 ML IV SCH ×2 (14:40→21:49)
--- NOTE | 2020-05-01 15:03 | NUR ---
Reassessment: Pt tolerating TF at goal GRV WNL. Current tube feeding unable to meet patient's intubation protein needs without providing additional fluids and in view of his prealbumin being 63.2 likely also r/t creatinine of 3.64; Patient had 24 hour urine--able to calculate nitrogen balance which is +2. LBM small for two days, has rectal tube. Phos elevated, MD aware. Will continue to monitor. Recommend: 1. continuos tube feeding per OG tube using Nepro at goal rate of 50 ml/hr will provide total volume of 1200 ml, 2160 tonja, 97 g protein, and 872 ml water. 2. additional water flush per MD 3. prealbumin q monday/ 4. daily weights 5. discuss phosphorus binder in view of elevated phos, pt may benefit from binder Addendum: 05/01/20 at [address] Muñoz RD Amended: Links added.
[2020-05-01 17:28] LABS: HEMATOCRIT 23.9 % (42.0-52.0); MEAN CORPUSCULAR HEMOGLOBIN 29.2 PG (27.0-31.0); MEAN CORPUSCULAR HGB CONC 33.4 g/dL (33.0-36.5); MEAN CORPUSCULAR VOLUME 87.2 FL (78-98); MEAN PLATELET VOLUME 8.3 FL (7.4-10.4); PLATELET COUNT 308 X10'3 (140-440); RED BLOOD COUNT 2.74 X10'6 (4.70-6.10); RED CELL DISTRIBUTION WIDTH 15.2 % (11.5-14.5)
[2020-05-01 17:30] LABS: WHITE BLOOD COUNT 31.7 X10'3 (4.5-11.0)
[2020-05-01 17:39] LABS: ALBUMIN 2.2 G/DL (3.4-5.0); ANION GAP 14 (8-16); BLOOD UREA NITROGEN 84 MG/DL (7-18); BUN/CREATININE RATIO 28.4 (5.4-32.0); CHLORIDE 103 MMOL/L (99-107); CREATININE 2.96 MG/DL (0.60-1.10); GLUCOSE 167 MG/DL (70-104); SODIUM 140 MMOL/L (135-145); TOTAL CARBON DIOXIDE 23.4 MMOL/L (24-32); eGFR 23 ML/MIN
[2020-05-01] MEDS: NORepinephrine 8mg/ 250ml NS 250 ML IV PRN (17:44)
[2020-05-01 18:02] LABS: MAGNESIUM 2.2 MG/DL (1.5-2.4); PHOSPHORUS 6.3 MG/DL (2.3-4.5)
--- NOTE | 2020-05-01 18:15 | NUR ---
Problems reprioritized. Patient report given, questions answered & plan of care reviewed with Vanesa RYAN.
[2020-05-01] MEDS: propofol 1000mg/100ml bottle 100 ML IV SCH (18:24)
[2020-05-01] MEDS: insulin glargine (Lantus) pen - multi-dose SQ SCH (20:42)
[2020-05-02] VITALS (32 sets, daily range): BP systolic 87–150; BP diastolic 46–90
[2020-05-02] MEDS: furosemide 10 MG/1 ML 10ml inj IV SCH
[2020-05-02] MEDS: dexmedetomidine inj. 400 MCG in dextrose 5%-water 96 ML IV SCH ×8 (00:03→22:01)
[2020-05-02 01:45] LABS: ALANINE AMINOTRANSFERASE 60 U/L (12-78); ALBUMIN 2.2 G/DL (3.4-5.0); ALBUMIN/GLOBULIN RATIO 0.6 (1.1-1.5); ALKALINE PHOSPHATASE 66 IU/L (46-116); ANION GAP 12 (8-16); ASPARTATE AMINO TRANSFERASE 27 U/L (10-37); BILIRUBIN,TOTAL 0.4 MG/DL (0.1-1.0); BLOOD UREA NITROGEN 87 MG/DL (7-18); BUN/CREATININE RATIO 25.4 (5.4-32.0); CALCIUM 8.1 MG/DL (8.5-10.1); CHLORIDE 103 MMOL/L (99-107); CREATININE 3.43 MG/DL (0.60-1.10); GLUCOSE 168 MG/DL (70-104); MAGNESIUM 2.2 MG/DL (1.5-2.4); PHOSPHORUS 7.2 MG/DL (2.3-4.5); POTASSIUM 3.8 MMOL/L (3.5-5.1); SODIUM 139 MMOL/L (135-145); TOTAL CARBON DIOXIDE 23.9 MMOL/L (24-32); VANCOMYCIN,TROUGH 8.9 UG/ML (6.0-14.0); eGFR 19 ML/MIN
[2020-05-02 01:47] LABS: BASOPHILS % (AUTO) 0.1 % (0-1); EOSINOPHILS # (AUTO) 0.1 X10'3 (0-0.9); HEMOGLOBIN 7.3 g/dl (14.0-17.9); MEAN PLATELET VOLUME 9.2 FL (7.4-10.4)
[2020-05-02 01:48] LABS: EOSINOPHILS % (AUTO) 0.2 % (0-6); LYMPHOCYTES # (AUTO) 2.2 X10'3 (1.1-4.8); MEAN CORPUSCULAR HEMOGLOBIN 29.2 PG (27.0-31.0); MEAN CORPUSCULAR HGB CONC 33.3 g/dL (33.0-36.5); MEAN CORPUSCULAR VOLUME 87.6 FL (78-98); MONOCYTES # (AUTO) 1.5 X10'3 (0-0.9); MONOCYTES % (AUTO) 5.6 % (2-12); NEUTROPHILS # (AUTO) 23.6 X10'3 (1.8-7.7); NEUTROPHILS % (AUTO) 86.1 % (42-75); PLATELET COUNT 312 X10'3 (140-440); RED BLOOD COUNT 2.49 X10'6 (4.70-6.10); RED CELL DISTRIBUTION WIDTH 15.6 % (11.5-14.5)
[2020-05-02 01:53] LABS: WHITE BLOOD COUNT 27.4 X10'3 (4.5-11.0)
[2020-05-02 01:54] LABS: HEMATOCRIT 21.9 % (42.0-52.0)
[2020-05-02] MEDS: mineral oil/petrolatum ophthal oint EACHEYE SCH ×4 (02:41→21:05)
[2020-05-02] MEDS: VANCOMYCIN LEVEL IV SCH (02:43)
[2020-05-02] MEDS: insulin regular, human U-100 3ml vial - multi-dose SQ SCH ×4 (02:43→21:58)
[2020-05-02] MEDS: ipratropium/albuterol 3ml nebule NEB SCH ×6 (02:58→23:49)
[2020-05-02 03:15] LABS: ABG BASE EXCESS -2.1 mmol/L (-2.0-2.0); ABG HCO3 21.6 mmol/L (22.0-26.0); ABG OXYGEN SATURATION 90.8 % (94-97); ABG PCO2 (T) 31.6 mmHg (35.0-48.0); ABG PO2 (T) 63.2 mmHg (75.0-100.0); FCOHb 0.3 % (0.0-3.9); FMetHb 0.2 % (0.0-1.5); FO2Hb 90.3 % (94-97); PATIENT TEMPERATURE 36.6; PEEP 7 cm H2O; RESPIRATORY RATE 12 b/min; TIDAL VOLUME 650 mL; TOTAL HEMOGLOBIN 7.3 G/dl (14.0-18.0)
[2020-05-02 03:15] LABS: OXYGEN SATURATION (MIXED VEN) 56.3 % (60-80); PO2 MIXED VENOUS (TEMP COR) 32.2 mmHg (35-46)
[2020-05-02] MEDS: HYDROmorphone 1 mg/ml syringe IV PRN ×3 (03:34→12:39)
[2020-05-02] MEDS: midazolam 100mg in NS 100ml 100 ML IV SCH ×3 (04:11→19:08)
[2020-05-02] MEDS: esmolol/sodium cl bag 250 ML IV SCH (04:58)
--- NOTE | 2020-05-02 06:18 | NUR ---
Problems reprioritized. Patient report given, questions answered & plan of care reviewed with SHELBY Choe.
[2020-05-02 06:39] LABS: NUCLEATED RED BLOOD CELLS 2 /100WBC (0-0); PLATELET ESTIMATE NORMAL; TOTAL CELLS COUNTED 100
[2020-05-02 06:42] LABS: POLYCHROMASIA 1+
[2020-05-02 06:44] LABS: SCHISTOCYTES FEW; TOXIC GRANULATION 1+
[2020-05-02] MEDS: cloNIDine 0.1 mg tablet OGT SCH (08:00)
[2020-05-02] MEDS ORDERED: vancomycin/NS 1 GM ADD-VANTAGE 250 ML X 1 DOSE IV ONE (08:15)
[2020-05-02 08:17] LABS: MEAN CORPUSCULAR HEMOGLOBIN 29.6 PG (27.0-31.0); MEAN CORPUSCULAR HGB CONC 33.4 g/dL (33.0-36.5); MEAN CORPUSCULAR VOLUME 88.7 FL (78-98); MEAN PLATELET VOLUME 8.9 FL (7.4-10.4); PLATELET COUNT 303 X10'3 (140-440); RED BLOOD COUNT 2.34 X10'6 (4.70-6.10); RED CELL DISTRIBUTION WIDTH 15.4 % (11.5-14.5)
[2020-05-02 08:20] LABS: HEMATOCRIT 20.7 % (42.0-52.0); HEMOGLOBIN 6.9 g/dl (14.0-17.9); WHITE BLOOD COUNT 26.6 X10'3 (4.5-11.0)
--- NOTE | 2020-05-02 08:21 | NUR ---
Critical Hgb 6.9. notified. Orders to transfuse
[2020-05-02] MEDS: pantoprazole 40 MG vial IV SCH ×2 (09:42→21:05)
[2020-05-02] MEDS: methylPREDNISolone sod succ/PF 40mg inj. IV SCH (09:45)
[2020-05-02] MEDS: piperacillin/tazo 3.375gm/50 ML IV SCH ×2 (09:46→21:27)
[2020-05-02] MEDS: vitamin D (cholecalciferol) 1,000 unit tablet OGT SCH (10:27)
[2020-05-02] MEDS: MULTIVIT-MIN/FERROUS GLUCONATE 9 MG/15 ML LIQUID OGT SCH (10:27)
[2020-05-02] MEDS: tacrolimus anhydrous 1mg capsule OGT SCH ×2 (10:28→21:05)
[2020-05-02 13:41] LABS: HEMOGLOBIN 7.3 g/dl (14.0-17.9); MEAN CORPUSCULAR HGB CONC 33.4 g/dL (33.0-36.5); MEAN CORPUSCULAR VOLUME 89.7 FL (78-98); MEAN PLATELET VOLUME 8.9 FL (7.4-10.4); PLATELET COUNT 238 X10'3 (140-440); RED BLOOD COUNT 2.45 X10'6 (4.70-6.10); RED CELL DISTRIBUTION WIDTH 15.7 % (11.5-14.5)
[2020-05-02 13:51] LABS: WHITE BLOOD COUNT 25.1 X10'3 (4.5-11.0)
--- NOTE | 2020-05-02 14:37 | NUR ---
Spoke to MD about CT results; He things that it is likely a venous bleed at this point, that the CL appears to be in the right place, and since we didnt give lovenox this morning, it should start getting better soon. MD aware that only two ports on the CL have a blood return
[2020-05-02] MEDS ORDERED: morphine 4 MG/ML inj SYRINge IV PRN (14:40)
[2020-05-02] MEDS: morphine/NS 100mg/100ml bag 100 ML IV PRN (16:29)
[2020-05-02 17:45] LABS: MEAN CORPUSCULAR HEMOGLOBIN 30.6 PG (27.0-31.0); MEAN CORPUSCULAR VOLUME 89.8 FL (78-98); MEAN PLATELET VOLUME 8.9 FL (7.4-10.4); PLATELET COUNT 205 X10'3 (140-440); RED BLOOD COUNT 2.16 X10'6 (4.70-6.10); RED CELL DISTRIBUTION WIDTH 15.9 % (11.5-14.5); WHITE BLOOD COUNT 21.5 X10'3 (4.5-11.0)
[2020-05-02 17:50] LABS: HEMATOCRIT 19.4 % (42.0-52.0); HEMOGLOBIN 6.6 g/dl (14.0-17.9)
--- NOTE | 2020-05-02 17:56 | NUR ---
notified MD about critical hgb 6.6. orders to transfuse 1 unit, keep 2 ahead, and transfuse if hgb less than 7
[2020-05-02] MEDS: insulin glargine (Lantus) pen - multi-dose SQ SCH (21:59)
[2020-05-03] VITALS (27 sets, daily range): BP systolic 96–129; BP diastolic 51–69
[2020-05-03] MEDS: propofol 1000mg/100ml bottle 100 ML IV SCH (00:24)
[2020-05-03] MEDS: dexmedetomidine inj. 400 MCG in dextrose 5%-water 96 ML IV SCH ×7 (01:12→21:07)
[2020-05-03] MEDS: mineral oil/petrolatum ophthal oint EACHEYE SCH ×4 (01:14→19:58)
[2020-05-03] MEDS: insulin regular, human U-100 3ml vial - multi-dose SQ SCH ×4 (01:27→20:16)
[2020-05-03] MEDS: midazolam 100mg in NS 100ml 100 ML IV SCH ×4 (01:59→20:18)
[2020-05-03 02:09] LABS: BASOPHILS % (AUTO) 0.1 % (0-1); EOSINOPHILS % (AUTO) 0 % (0-6); LYMPHOCYTES # (AUTO) 0.8 X10'3 (1.1-4.8); LYMPHOCYTES % (AUTO) 4.2 % (21-51); MEAN CORPUSCULAR HEMOGLOBIN 29.7 PG (27.0-31.0); MEAN CORPUSCULAR HGB CONC 33.5 g/dL (33.0-36.5); MEAN CORPUSCULAR VOLUME 88.6 FL (78-98); MEAN PLATELET VOLUME 9.2 FL (7.4-10.4); MONOCYTES # (AUTO) 0.6 X10'3 (0-0.9); MONOCYTES % (AUTO) 3.2 % (2-12); NEUTROPHILS # (AUTO) 16.7 X10'3 (1.8-7.7); NEUTROPHILS % (AUTO) 92.5 % (42-75); PLATELET COUNT 192 X10'3 (140-440); RED CELL DISTRIBUTION WIDTH 15.6 % (11.5-14.5); WHITE BLOOD COUNT 18.1 X10'3 (4.5-11.0)
[2020-05-03 02:22] LABS: ALANINE AMINOTRANSFERASE 49 U/L (12-78); ALBUMIN 1.9 G/DL (3.4-5.0); ALBUMIN/GLOBULIN RATIO 0.5 (1.1-1.5); ALKALINE PHOSPHATASE 57 IU/L (46-116); ANION GAP 12 (8-16); ASPARTATE AMINO TRANSFERASE 32 U/L (10-37); BILIRUBIN,TOTAL 0.4 MG/DL (0.1-1.0); BLOOD UREA NITROGEN 101 MG/DL (7-18); CALCIUM 8.2 MG/DL (8.5-10.1); CHLORIDE 106 MMOL/L (99-107); CREATININE 3.48 MG/DL (0.60-1.10); GLUCOSE 193 MG/DL (70-104); MAGNESIUM 2.6 MG/DL (1.5-2.4); PHOSPHORUS 7.6 MG/DL (2.3-4.5); POTASSIUM 4.2 MMOL/L (3.5-5.1); SODIUM 140 MMOL/L (135-145); TOTAL PROTEIN 5.5 G/DL (6.4-8.2); VANCOMYCIN,RANDOM 17.3 UG/ML; eGFR 19 ML/MIN
[2020-05-03 02:23] LABS: HEMATOCRIT 20.4 % (42.0-52.0); HEMOGLOBIN 6.8 g/dl (14.0-17.9)
[2020-05-03] MEDS: ipratropium/albuterol 3ml nebule NEB SCH ×6 (02:56→23:16)
[2020-05-03] MEDS: VANCOMYCIN LEVEL IV SCH (03:00)
[2020-05-03 03:10] LABS: ABG BASE EXCESS -4.9 mmol/L (-2.0-2.0); ABG HCO3 19.4 mmol/L (22.0-26.0); ABG OXYGEN SATURATION 89.8 % (94-97); ABG PCO2 (T) 32.9 mmHg (35.0-48.0); ABG PO2 (T) 66.6 mmHg (75.0-100.0); ALLEN'S TEST POSITIVE; FCOHb 0.3 % (0.0-3.9); FMetHb 0.1 % (0.0-1.5); FO2Hb 89.4 % (94-97); PATIENT TEMPERATURE 37.3; PEEP 7 cm H2O; RESPIRATORY RATE 12 b/min; TIDAL VOLUME 650 mL
[2020-05-03 04:11] LABS: PARTIAL THROMBOPLASTIN TIME 25 SECONDS (22-32)
[2020-05-03] MEDS ORDERED: tranexamic acid 1gm/0.7% sal. 100 ML IV ONE (04:30)
--- NOTE | 2020-05-03 06:30 | NUR ---
Patient in room ICU 2039. I have received report from Jeannie RYAN and had the opportunity to ask questions and assume patient care.
--- NOTE | 2020-05-03 06:48 | NUR ---
Problems reprioritized. Patient report given, questions answered & plan of care reviewed with SHELBY Delacruz.
[2020-05-03] MEDS: methylPREDNISolone sod succ/PF 40mg inj. IV SCH (07:56)
[2020-05-03] MEDS: MULTIVIT-MIN/FERROUS GLUCONATE 9 MG/15 ML LIQUID OGT SCH (07:56)
[2020-05-03] MEDS: tacrolimus anhydrous 1mg capsule OGT SCH ×2 (07:56→19:59)
[2020-05-03] MEDS: vitamin D (cholecalciferol) 1,000 unit tablet OGT SCH (07:56)
[2020-05-03] MEDS: pantoprazole 40 MG vial IV SCH ×2 (07:56→19:58)
[2020-05-03] MEDS: piperacillin/tazo 3.375gm/50 ML IV SCH ×2 (08:05→19:58)
--- NOTE | 2020-05-03 09:48 | NUR ---
Levo. just turned back on for MAP 60. RN just finished providing víctor care and turning pt.
[2020-05-03 09:49] LABS: HEMATOCRIT 22.7 % (42.0-52.0); HEMOGLOBIN 7.7 g/dl (14.0-17.9); MEAN CORPUSCULAR HGB CONC 33.7 g/dL (33.0-36.5); MEAN CORPUSCULAR VOLUME 88.9 FL (78-98); MEAN PLATELET VOLUME 9.1 FL (7.4-10.4); PLATELET COUNT 185 X10'3 (140-440); RED BLOOD COUNT 2.56 X10'6 (4.70-6.10); RED CELL DISTRIBUTION WIDTH 15.2 % (11.5-14.5); WHITE BLOOD COUNT 18.3 X10'3 (4.5-11.0)
--- NOTE | 2020-05-03 10:26 | NUR ---
Sp02 87% despite suctioning. FI02 increased to 60% on vent. RT notified.
--- NOTE | 2020-05-03 10:32 | NUR ---
Levo back off.
[2020-05-03] MEDS ORDERED: normal saline 1000ml 100 ML IV PRN (13:49)
[2020-05-03] MEDS ORDERED: heparin 1,000 units/ml 10ml inj HE ONE (13:55)
[2020-05-03 14:00] LABS: HBSAG SCREEN Negative (Negative)
[2020-05-03 17:19] LABS: HEMATOCRIT 22.8 % (42.0-52.0); HEMOGLOBIN 7.7 g/dl (14.0-17.9); MEAN CORPUSCULAR HEMOGLOBIN 30.1 PG (27.0-31.0); MEAN CORPUSCULAR HGB CONC 33.5 g/dL (33.0-36.5); MEAN CORPUSCULAR VOLUME 89.6 FL (78-98); PLATELET COUNT 194 X10'3 (140-440); RED BLOOD COUNT 2.55 X10'6 (4.70-6.10); RED CELL DISTRIBUTION WIDTH 15.8 % (11.5-14.5); WHITE BLOOD COUNT 19.3 X10'3 (4.5-11.0)
--- NOTE | 2020-05-03 18:14 | NUR ---
Problems reprioritized. Patient report given, questions answered & plan of care reviewed with Jeannie RYAN.
--- NOTE | 2020-05-03 18:20 | NUR ---
Patient in room ICU 2039. I have received report from SHELBY Delacruz and had the opportunity to ask questions and assume patient care.
[2020-05-03] MEDS: morphine/NS 100mg/100ml bag 100 ML IV PRN (18:56)
[2020-05-03] MEDS: insulin glargine (Lantus) pen - multi-dose SQ SCH (20:17)
[2020-05-04] VITALS (28 sets, daily range): BP systolic 94–138; BP diastolic 48–80
[2020-05-04] MEDS: dexmedetomidine inj. 400 MCG in dextrose 5%-water 96 ML IV SCH ×6 (00:23→22:51)
[2020-05-04] MEDS: insulin regular, human U-100 3ml vial - multi-dose SQ SCH ×4 (01:25→20:44)
[2020-05-04] MEDS: mineral oil/petrolatum ophthal oint EACHEYE SCH ×4 (01:26→20:01)
[2020-05-04 01:44] LABS: BASOPHILS % (AUTO) 0.2 % (0-1); EOSINOPHILS % (AUTO) 0.2 % (0-6); HEMATOCRIT 22.2 % (42.0-52.0); HEMOGLOBIN 7.5 g/dl (14.0-17.9); LYMPHOCYTES # (AUTO) 0.6 X10'3 (1.1-4.8); LYMPHOCYTES % (AUTO) 3.6 % (21-51); MEAN CORPUSCULAR HGB CONC 33.6 g/dL (33.0-36.5); MEAN CORPUSCULAR VOLUME 89.1 FL (78-98); MEAN PLATELET VOLUME 9.1 FL (7.4-10.4); MONOCYTES # (AUTO) 0.4 X10'3 (0-0.9); MONOCYTES % (AUTO) 2.5 % (2-12); NEUTROPHILS # (AUTO) 16.5 X10'3 (1.8-7.7); NEUTROPHILS % (AUTO) 93.5 % (42-75); PLATELET COUNT 202 X10'3 (140-440); RED BLOOD COUNT 2.49 X10'6 (4.70-6.10); RED CELL DISTRIBUTION WIDTH 15.8 % (11.5-14.5); WHITE BLOOD COUNT 17.7 X10'3 (4.5-11.0)
[2020-05-04 02:06] LABS: ALANINE AMINOTRANSFERASE 57 U/L (12-78); ALBUMIN 1.8 G/DL (3.4-5.0); ALBUMIN/GLOBULIN RATIO 0.5 (1.1-1.5); ALKALINE PHOSPHATASE 69 IU/L (46-116); ANION GAP 12 (8-16); ASPARTATE AMINO TRANSFERASE 29 U/L (10-37); BILIRUBIN,TOTAL 0.4 MG/DL (0.1-1.0); BLOOD UREA NITROGEN 96 MG/DL (7-18); BUN/CREATININE RATIO 30.9 (5.4-32.0); CALCIUM 8.3 MG/DL (8.5-10.1); CHLORIDE 107 MMOL/L (99-107); CREATININE 3.11 MG/DL (0.60-1.10); GLUCOSE 198 MG/DL (70-104); MAGNESIUM 2.7 MG/DL (1.5-2.4); PHOSPHORUS 6.6 MG/DL (2.3-4.5); POTASSIUM 4.4 MMOL/L (3.5-5.1); PREALBUMIN 33.1 MG/DL (19-36); SODIUM 139 MMOL/L (135-145); TOTAL CARBON DIOXIDE 19.9 MMOL/L (24-32); TOTAL PROTEIN 5.7 G/DL (6.4-8.2); VANCOMYCIN,RANDOM 11.6 UG/ML; eGFR 21 ML/MIN
[2020-05-04] MEDS: VANCOMYCIN LEVEL IV SCH (03:00)
[2020-05-04 03:21] LABS: ABG BASE EXCESS -5.5 mmol/L (-2.0-2.0); ABG HCO3 18.2 mmol/L (22.0-26.0); ABG OXYGEN SATURATION 92.9 % (94-97); ABG PO2 (T) 68.5 mmHg (75.0-100.0); FCOHb 0.3 % (0.0-3.9); FMetHb 0.3 % (0.0-1.5); FO2Hb 92.3 % (94-97); PATIENT TEMPERATURE 36.6; PEEP 7 cm H2O; RESPIRATORY RATE 12 b/min; TIDAL VOLUME 650 mL; TOTAL HEMOGLOBIN 8.2 G/dl (14.0-18.0)
[2020-05-04] MEDS: midazolam 100mg in NS 100ml 100 ML IV SCH ×2 (03:23→18:23)
[2020-05-04] MEDS: propofol 1000mg/100ml bottle 100 ML IV SCH (05:09)
--- NOTE | 2020-05-04 06:22 | NUR ---
Problems reprioritized. Patient report given, questions answered & plan of care reviewed with SHELBY Delacruz.
[2020-05-04] MEDS ORDERED: vancomycin/NS 1 GM ADD-VANTAGE 250 ML X 1 DOSE IV ONE (07:15)
[2020-05-04] MEDS: pantoprazole 40 MG vial IV SCH ×2 (07:22→19:57)
[2020-05-04] MEDS: methylPREDNISolone sod succ/PF 40mg inj. IV SCH (07:22)
[2020-05-04] MEDS: MULTIVIT-MIN/FERROUS GLUCONATE 9 MG/15 ML LIQUID OGT SCH (07:23)
[2020-05-04] MEDS: piperacillin/tazo 3.375gm/50 ML IV SCH ×2 (07:23→20:00)
[2020-05-04] MEDS: tacrolimus anhydrous 1mg capsule OGT SCH ×2 (07:24→19:57)
[2020-05-04] MEDS: vitamin D (cholecalciferol) 1,000 unit tablet OGT SCH (07:24)
[2020-05-04] MEDS ORDERED: heparin 1,000 units/ml 10ml inj HE ONE ×2 (08:00)
[2020-05-04] MEDS: ipratropium/albuterol 3ml nebule NEB SCH ×5 (08:17→23:32)
[2020-05-04 09:43] LABS: MEAN CORPUSCULAR HEMOGLOBIN 30.1 PG (27.0-31.0); MEAN CORPUSCULAR HGB CONC 33.3 g/dL (33.0-36.5); MEAN CORPUSCULAR VOLUME 90.4 FL (78-98); MEAN PLATELET VOLUME 8.9 FL (7.4-10.4); PLATELET COUNT 194 X10'3 (140-440); RED BLOOD COUNT 2.34 X10'6 (4.70-6.10)
[2020-05-04 09:50] LABS: HEMATOCRIT 21.1 % (42.0-52.0)
--- NOTE | 2020-05-04 10:31 | NUR ---
Hemoglobin 7.[address] Gunter notified, new order to transfuse 1 unit of blood.
[2020-05-04 16:58] LABS: HEMATOCRIT 27.6 % (42.0-52.0); HEMOGLOBIN 9.2 g/dl (14.0-17.9); MEAN CORPUSCULAR HEMOGLOBIN 29.8 PG (27.0-31.0); MEAN CORPUSCULAR HGB CONC 33.5 g/dL (33.0-36.5); MEAN PLATELET VOLUME 8.8 FL (7.4-10.4); PLATELET COUNT 237 X10'3 (140-440); RED CELL DISTRIBUTION WIDTH 15.8 % (11.5-14.5); WHITE BLOOD COUNT 17.4 X10'3 (4.5-11.0)
[2020-05-04] MEDS: insulin glargine (Lantus) pen - multi-dose SQ SCH (20:46)
[2020-05-05] VITALS (22 sets, daily range): BP systolic 98–163; BP diastolic 57–100
[2020-05-05] MEDS: mineral oil/petrolatum ophthal oint EACHEYE SCH ×3 (01:59→13:53)
[2020-05-05] MEDS: insulin regular, human U-100 3ml vial - multi-dose SQ SCH ×2 (02:51→08:23)
[2020-05-05 02:59] LABS: VANCOMYCIN,RANDOM 14.3 UG/ML
[2020-05-05] MEDS: VANCOMYCIN LEVEL IV SCH (03:00)
[2020-05-05 03:07] LABS: HEMATOCRIT 27.2 % (42.0-52.0); HEMOGLOBIN 9.2 g/dl (14.0-17.9); MEAN CORPUSCULAR HEMOGLOBIN 30.1 PG (27.0-31.0); MEAN CORPUSCULAR HGB CONC 33.8 g/dL (33.0-36.5); MEAN PLATELET VOLUME 8.8 FL (7.4-10.4); PLATELET COUNT 250 X10'3 (140-440); RED BLOOD COUNT 3.06 X10'6 (4.70-6.10); RED CELL DISTRIBUTION WIDTH 16.2 % (11.5-14.5); WHITE BLOOD COUNT 18.7 X10'3 (4.5-11.0)
[2020-05-05 03:24] LABS: ALANINE AMINOTRANSFERASE 63 U/L (12-78); ALBUMIN 2.1 G/DL (3.4-5.0); ALBUMIN/GLOBULIN RATIO 0.5 (1.1-1.5); ALKALINE PHOSPHATASE 79 IU/L (46-116); ANION GAP 11 (8-16); ASPARTATE AMINO TRANSFERASE 30 U/L (10-37); BILIRUBIN,TOTAL 0.5 MG/DL (0.1-1.0); BLOOD UREA NITROGEN 64 MG/DL (7-18); BUN/CREATININE RATIO 27.9 (5.4-32.0); CALCIUM 8.3 MG/DL (8.5-10.1); CHLORIDE 104 MMOL/L (99-107); CREATININE 2.29 MG/DL (0.60-1.10); GLUCOSE 111 MG/DL (70-104); POTASSIUM 4.1 MMOL/L (3.5-5.1); SODIUM 138 MMOL/L (135-145); TOTAL CARBON DIOXIDE 23.4 MMOL/L (24-32); TOTAL PROTEIN 6.4 G/DL (6.4-8.2); eGFR 30 ML/MIN
[2020-05-05] MEDS: ipratropium/albuterol 3ml nebule NEB SCH ×6 (03:46→23:40)
[2020-05-05 04:00] LABS: ABG BASE EXCESS -2.3 mmol/L (-2.0-2.0); ABG HCO3 22.5 mmol/L (22.0-26.0); ABG OXYGEN SATURATION 90.2 % (94-97); ABG PCO2 (T) 37.8 mmHg (35.0-48.0); ABG PO2 (T) 63.2 mmHg (75.0-100.0); FCOHb 0.2 % (0.0-3.9); FMetHb 0.1 % (0.0-1.5); FO2Hb 89.9 % (94-97); PATIENT TEMPERATURE 36.4; PEEP 7 cm H2O; TOTAL HEMOGLOBIN 10.1 G/dl (14.0-18.0)
[2020-05-05] MEDS: morphine/NS 100mg/100ml bag 100 ML IV PRN (04:50)
[2020-05-05] MEDS: dexmedetomidine inj. 400 MCG in dextrose 5%-water 96 ML IV SCH (05:15)
[2020-05-05] MEDS ORDERED: vancomycin/NS 1 GM ADD-VANTAGE 250 ML X 1 DOSE IV ONE (07:15)
[2020-05-05 07:37] LABS: MAGNESIUM 2.3 MG/DL (1.5-2.4); PHOSPHORUS 5.4 MG/DL (2.3-4.5)
[2020-05-05] MEDS: piperacillin/tazo 3.375gm/50 ML IV SCH ×2 (08:21→20:52)
[2020-05-05] MEDS: methylPREDNISolone sod succ/PF 40mg inj. IV SCH (08:21)
[2020-05-05] MEDS: pantoprazole 40 MG vial IV SCH ×2 (08:21→20:52)
[2020-05-05] MEDS: MULTIVIT-MIN/FERROUS GLUCONATE 9 MG/15 ML LIQUID OGT SCH (08:21)
[2020-05-05] MEDS: vitamin D (cholecalciferol) 1,000 unit tablet OGT SCH (08:21)
[2020-05-05] MEDS: tacrolimus anhydrous 1mg capsule OGT SCH ×2 (08:24→20:52)
[2020-05-05] MEDS ORDERED: racepinephrine 11.25mg/0.5ml nebule IH PRN (10:10)
--- NOTE | 2020-05-05 10:20 | NUR ---
Dr. Gunter at bedside. New orders noted. Will continue to monitor.
--- NOTE | 2020-05-05 10:50 | NUR ---
[facility] LINE INFORMATION: REF: [id number] LOT: [id number] EXP: 06/01/2020
[2020-05-05] MEDS: hydrALAZINE 20mg/ml inj. IV PRN (11:59)
--- NOTE | 2020-05-05 12:16 | NUR ---
Reassessment: Pt tolerating TF at goal GRV WNL. Patient had 24 hour urine--able to calculate nitrogen balance which is +2. Last BM 05/05 moderate, has rectal tube. Phos elevated, MD aware. Will continue to monitor. Recommend: 1. continuos tube feeding per OG tube using Nepro at goal rate of 50 ml/hr will provide total volume of 1200 ml, 2160 tonja, 97 g protein, and 872 ml water. 2. additional water flush per MD 3. prealbumin q monday/ 4. daily weights 5. discuss phosphorus binder in view of elevated phos, pt may benefit from binder Addendum: 05/05/20 at [address] Muñoz RD Amended: Links added.
[2020-05-05] MEDS ORDERED: LORazepam 2 mg/ml vial IV PRN (13:05)
--- NOTE | 2020-05-05 13:06 | NUR ---
Called and spoke with Dr. Gunter on telephone regarding current vital signs. New order for Labetolol and Ativan.
[2020-05-05] MEDS: ondansetron/PF 4mg/2ml inj IV PRN (13:21)
[2020-05-05] MEDS: labetalol 100mg tablet PO PRN (13:22)
--- NOTE | 2020-05-05 13:35 | NUR ---
follow up: pt was extubated. off TF. Seen by ENVELOPE ADDRESSER, ENVELOPE ADDRESSER recommends pureed foods, thin liquids. Has also carb controlled diet. Will follow. Recommend: 1. Continue pureed diet, thin liquids, carb controlled per ENVELOPE ADDRESSER recs 2. wt per rx 3. bowel care as needed Addendum: 05/05/20 at [address] Muñoz RD Amended: Links added.
[2020-05-05] MEDS ORDERED: furosemide 10 MG/1 ML 10ml inj IV ONE (13:45)
[2020-05-05] MEDS ORDERED: insulin Lispro (HumaLOG) vial - multi-dose SQ SCH (14:00)
[2020-05-05] MEDS: insulin glargine (Lantus) pen - multi-dose SQ SCH (21:12)
[2020-05-06] VITALS (23 sets, daily range): BP systolic 107–155; BP diastolic 56–103
[2020-05-06 02:35] LABS: HEMATOCRIT 27.9 % (42.0-52.0); HEMOGLOBIN 9.2 g/dl (14.0-17.9); MEAN CORPUSCULAR HGB CONC 33.1 g/dL (33.0-36.5); MEAN CORPUSCULAR VOLUME 90.6 FL (78-98); MEAN PLATELET VOLUME 8.4 FL (7.4-10.4); PLATELET COUNT 293 X10'3 (140-440); RED BLOOD COUNT 3.08 X10'6 (4.70-6.10); RED CELL DISTRIBUTION WIDTH 16.5 % (11.5-14.5); WHITE BLOOD COUNT 18.7 X10'3 (4.5-11.0)
[2020-05-06] MEDS: VANCOMYCIN LEVEL IV SCH (03:00)
--- NOTE | 2020-05-06 03:04 | NUR ---
Patient in room ICU 2039. I have received report from Emeka RYAN and had the opportunity to ask questions and assume patient care.
[2020-05-06 03:05] LABS: NUCLEATED RED BLOOD CELLS 1 /100WBC (0-0); TOTAL CELLS COUNTED 100
[2020-05-06 03:08] LABS: ANISOCYTOSIS 1+; PLATELET ESTIMATE NORMAL; POLYCHROMASIA 1+; STOMATOCYTES 1+
[2020-05-06] MEDS: ipratropium/albuterol 3ml nebule NEB SCH ×6 (03:21→23:05)
--- NOTE | 2020-05-06 06:26 | NUR ---
Problems reprioritized. Patient report given, questions answered & plan of care reviewed with Pee RYAN.
[2020-05-06 06:27] LABS: ALANINE AMINOTRANSFERASE 171 U/L (12-78); ALBUMIN 2.1 G/DL (3.4-5.0); ALBUMIN/GLOBULIN RATIO 0.5 (1.1-1.5); ALKALINE PHOSPHATASE 177 IU/L (46-116); ANION GAP 12 (8-16); ASPARTATE AMINO TRANSFERASE 116 U/L (10-37); BILIRUBIN,TOTAL 0.9 MG/DL (0.1-1.0); BLOOD UREA NITROGEN 82 MG/DL (7-18); CALCIUM 8.4 MG/DL (8.5-10.1); CHLORIDE 103 MMOL/L (99-107); CREATININE 2.83 MG/DL (0.60-1.10); GLUCOSE 102 MG/DL (70-104); POTASSIUM 3.7 MMOL/L (3.5-5.1); SODIUM 138 MMOL/L (135-145); TOTAL CARBON DIOXIDE 23.1 MMOL/L (24-32); TOTAL PROTEIN 6.4 G/DL (6.4-8.2); eGFR 24 ML/MIN
[2020-05-06] MEDS ORDERED: acetaminophen 325mg tablet PO PRN ×2 (06:46)
[2020-05-06] MEDS ORDERED: dextrose ORAL solution 15 GM/59 ML bottle PO PRN ×2 (06:47)
[2020-05-06] MEDS ORDERED: POTASSIUM BICARB 20meq eff tab 20 MEQ TABLET.EFF PO PRN ×2 (06:50→06:51)
[2020-05-06] MEDS ORDERED: MULTIVIT-MIN/FERROUS GLUCONATE 9 MG/15 ML LIQUID PO SCH (06:50)
[2020-05-06] MEDS ORDERED: magnesium hydroxide 30ml (MOM) UD suspension PO PRN (06:50)
[2020-05-06] MEDS ORDERED: Neutra Phos packet PO PRN (06:51)
[2020-05-06] MEDS: methylPREDNISolone sod succ/PF 40mg inj. IV SCH (07:30)
[2020-05-06] MEDS: piperacillin/tazo 3.375gm/50 ML IV SCH ×2 (07:31→20:50)
[2020-05-06] MEDS: vitamin D (cholecalciferol) 1,000 unit tablet PO SCH (07:31)
[2020-05-06] MEDS: pantoprazole 40 MG vial IV SCH ×2 (07:31→20:50)
[2020-05-06] MEDS: tacrolimus anhydrous 1mg capsule PO SCH ×2 (07:32→20:51)
[2020-05-06] MEDS ORDERED: methylPREDNISolone sod succ 125mg/2ml vial IV SCH (08:00)
[2020-05-06] MEDS ORDERED: multivitamins, therapeutics tablet PO SCH (08:15)
[2020-05-06] MEDS: labetalol 100mg tablet PO PRN ×2 (08:17→20:51)
--- NOTE | 2020-05-06 11:04 | NUR ---
F/u: Pt appetite poor s/p extubation. Advanced to mechanical soft/grind all/thin carb controlled diet per WASHERY BOSS recs today. To start zinc sulfate BID in addition to reglan given renal failure can lead to zinc deficiency per contact center assistant at rounds. LBM 8/. To start lasix as well today for fluid removal as well as ultram PRN for pain per contact center assistant. Will monitor for PO tolerance and ONS needs this admit. Recommend: 1. Continue mechanical soft/grind all/thin/carb controlled diet per WASHERY BOSS recs 2. monitor for ONS needs 3. wt per rx 4. bowel care as needed Addendum: 05/06/20 at [address] Amended: Links added.
[2020-05-06] MEDS ORDERED: metoclopramide 10mg tablet PO PRN (11:15)
[2020-05-06] MEDS: furosemide 40mg/4ml inj IV SCH ×2 (12:06→20:50)
[2020-05-06] MEDS: traMADol 50MG tablet PO PRN ×2 (12:07→20:52)
[2020-05-06] MEDS: zinc sulfate 220mg capsule PO SCH ×2 (12:40→20:51)
--- NOTE | 2020-05-06 18:30 | NUR ---
Patient in room ICU 2039. I have received report from Mary Ann RYAN and had the opportunity to ask questions and assume patient care.
--- NOTE | 2020-05-06 20:37 | NUR ---
SPOKE WITH MARLI CANELA ABOUT HAVING THE PT REQUALIFY FOR THE HYPERGLYCEMIC PROTOCOL DUE TO TUBE FEEDING BEING STOPPED AND HAVING A DECREASED APPETITE.
[2020-05-06] MEDS: insulin glargine (Lantus) pen - multi-dose SQ SCH (20:53)
--- NOTE | 2020-05-06 23:46 | NUR ---
Problems reprioritized. Patient report given, questions answered & plan of care reviewed with Dinesh RN.
[2020-05-07] VITALS (15 sets, daily range): BP systolic 118–160; BP diastolic 70–92
[2020-05-07] MEDS: VANCOMYCIN LEVEL IV SCH (03:00)
[2020-05-07] MEDS: ipratropium/albuterol 3ml nebule NEB SCH ×3 (03:37→10:38)
[2020-05-07 03:45] LABS: HEMATOCRIT 26.6 % (42.0-52.0); HEMOGLOBIN 8.9 g/dl (14.0-17.9); MEAN CORPUSCULAR HEMOGLOBIN 30.6 PG (27.0-31.0); MEAN CORPUSCULAR HGB CONC 33.4 g/dL (33.0-36.5); MEAN CORPUSCULAR VOLUME 91.4 FL (78-98); MEAN PLATELET VOLUME 8.1 FL (7.4-10.4); PLATELET COUNT 281 X10'3 (140-440); RED BLOOD COUNT 2.91 X10'6 (4.70-6.10); RED CELL DISTRIBUTION WIDTH 16.3 % (11.5-14.5); WHITE BLOOD COUNT 14.6 X10'3 (4.5-11.0)
[2020-05-07 04:02] LABS: ALANINE AMINOTRANSFERASE 191 U/L (12-78); ALBUMIN 2.2 G/DL (3.4-5.0); ALBUMIN/GLOBULIN RATIO 0.5 (1.1-1.5); ALKALINE PHOSPHATASE 200 IU/L (46-116); ANION GAP 12 (8-16); ASPARTATE AMINO TRANSFERASE 59 U/L (10-37); BILIRUBIN,TOTAL 1.1 MG/DL (0.1-1.0); BLOOD UREA NITROGEN 86 MG/DL (7-18); BUN/CREATININE RATIO 30.4 (5.4-32.0); CALCIUM 8.4 MG/DL (8.5-10.1); CHLORIDE 102 MMOL/L (99-107); CREATININE 2.83 MG/DL (0.60-1.10); GLUCOSE 104 MG/DL (70-104); SODIUM 137 MMOL/L (135-145); TOTAL CARBON DIOXIDE 22.7 MMOL/L (24-32); TOTAL PROTEIN 6.7 G/DL (6.4-8.2); TRIGLYCERIDES 193 MG/DL (20-135); VANCOMYCIN,RANDOM 17.6 UG/ML; eGFR 24 ML/MIN
[2020-05-07 04:17] LABS: ANISOCYTOSIS 1+; PLATELET ESTIMATE NORMAL; POLYCHROMASIA 1+; TOTAL CELLS COUNTED 100
[2020-05-07 04:18] LABS: STOMATOCYTES 1+
--- NOTE | 2020-05-07 06:09 | NUR ---
Problems reprioritized. Patient report given, questions answered & plan of care reviewed with Derick RYNA.
--- NOTE | 2020-05-07 06:32 | NUR ---
Patient in room ICU 2039. I have received report from Dinesh RYAN and had the opportunity to ask questions and assume patient care.
[2020-05-07] MEDS: pantoprazole 40 MG vial IV SCH (08:04)
[2020-05-07] MEDS: piperacillin/tazo 3.375gm/50 ML IV SCH (08:04)
[2020-05-07] MEDS: methylPREDNISolone sod succ/PF 40mg inj. IV SCH (08:16)
[2020-05-07] MEDS: furosemide 40mg/4ml inj IV SCH ×2 (08:16→20:06)
[2020-05-07] MEDS: tacrolimus anhydrous 1mg capsule PO SCH ×2 (08:18→20:11)
[2020-05-07] MEDS: multivitamins, therapeutics tablet PO SCH (08:19)
[2020-05-07] MEDS: zinc sulfate 220mg capsule PO SCH ×2 (08:19→20:17)
[2020-05-07] MEDS: vitamin D (cholecalciferol) 1,000 unit tablet PO SCH (08:19)
[2020-05-07] MEDS: labetalol 100mg tablet PO PRN (12:36)
--- NOTE | 2020-05-07 14:57 | NUR ---
Problems reprioritized. Patient report given, questions answered & plan of care reviewed with Bianca. will pack up pt belongings and transfer to room 351 when able.
--- NOTE | 2020-05-07 15:45 | NUR ---
pt transferred to room 351 at 1525. Bianca RYAN present to resume care. all belongings transferred with pt. Guard accompanied during transport.
--- NOTE | 2020-05-07 18:48 | NUR ---
Problems reprioritized. Patient report given, questions answered & plan of care reviewed with Pauly RYAN.
[2020-05-07] MEDS: insulin glargine (Lantus) pen - multi-dose SQ SCH (21:00)
[2020-05-08] VITALS: BP 131/81
[2020-05-08] MEDS: VANCOMYCIN LEVEL IV SCH (03:00)
[2020-05-08 04:19] LABS: HEMATOCRIT 27.2 % (42.0-52.0); HEMOGLOBIN 8.9 g/dl (14.0-17.9); MEAN CORPUSCULAR HEMOGLOBIN 29.8 PG (27.0-31.0); MEAN CORPUSCULAR HGB CONC 32.7 g/dL (33.0-36.5); MEAN PLATELET VOLUME 7.9 FL (7.4-10.4); PLATELET COUNT 289 X10'3 (140-440); RED BLOOD COUNT 2.98 X10'6 (4.70-6.10); RED CELL DISTRIBUTION WIDTH 17.1 % (11.5-14.5); WHITE BLOOD COUNT 12.5 X10'3 (4.5-11.0)
[2020-05-08 04:29] LABS: VANCOMYCIN,RANDOM 12.9 UG/ML
[2020-05-08 04:40] LABS: ANISOCYTOSIS 1+; PLATELET ESTIMATE NORMAL; TOTAL CELLS COUNTED 100
[2020-05-08 04:41] LABS: POLYCHROMASIA FEW; STOMATOCYTES 1+
--- NOTE | 2020-05-08 06:25 | NUR ---
Patient in room [facility] 351. I have received report from SHELBY Coats and had the opportunity to ask questions and assume patient care.
[2020-05-08 07:00] VITALS: BP 137/83
[2020-05-08] MEDS: furosemide 40mg/4ml inj IV SCH ×2 (09:09→18:00)
[2020-05-08] MEDS: multivitamins, therapeutics tablet PO SCH (09:09)
[2020-05-08] MEDS: zinc sulfate 220mg capsule PO SCH ×2 (09:09→19:55)
[2020-05-08] MEDS: tacrolimus anhydrous 1mg capsule PO SCH ×2 (09:54→19:55)
[2020-05-08 11:00] VITALS: BP 149/94
--- NOTE | 2020-05-08 15:50 | NUR ---
Reassessment: Pt continues with poor PO intake, documented with 25% PO intake at lunch 05/07 however has refused all surrounding meals. Pt seen at bedside states his appetite is improving and reports roughly 20% PO intake at breakfast this morning despite documentation that he refused it. Pt states he doesn't eat meat, any fish, or tofu. Pt states he eats eggs and agrees to cottage cheese, yogurt, and vegetable patties for protein supplementation. Pt also agrees to peaches/pears with meals. Pt confirms that he will consume his food with these changes. Food preferences were d/w dietary. Pt denies any constipation/diarrhea. LBM 05/07. Will continue to follow closely. Recommend: 1. Continue mechanical soft grind all diet with thin liquids per ST recs 2. Consider diet liberalization to regular with texture per ST recs given poor PO hx; heart healthy diet if PO intake improves given elevated TG and lipids. CHO controlled diet not warranted given A1c 6.1% 3. [place] patient's food preferences: No meat, fish, or tofu. Cottage cheese BIDBD, yogurt q lunch, eggs at breakfast, veggie patties BIDLD, peaches/pears with all meals 4. Encourage PO intake 5. Monitor need for ONS 6. Bowel care PRN 7. Scaled weights per rx Addendum: 05/08/20 at [address] Amended: Links added.
[2020-05-08 18:00] VITALS: BP 129/84
--- NOTE | 2020-05-08 18:30 | NUR ---
Reported off to Effie RYAN. Patient is awake and alert on 3LNC. [place] at his side. Call light and items of frequent use within reach. Addendum: 05/08/20 at 2219 by Pauly Ramírez RN [phone]
--- NOTE | 2020-05-08 18:30 | NUR ---
Problems reprioritized. Patient report given, questions answered & plan of care reviewed with Margarita Avila RN.
--- NOTE | 2020-05-08 18:35 | NUR ---
Patient in room [facility] 351. I have received report from CAPO RYAN and had the opportunity to ask questions and assume patient care.
[2020-05-08] MEDS ORDERED: oxyCODONE/APAP 5-325mg tablet PO ONE (19:45)
[2020-05-08] MEDS: insulin glargine (Lantus) pen - multi-dose SQ SCH (21:00)
[2020-05-09] VITALS: BP 132/88
[2020-05-09] MEDS: oxyCODONE/APAP 5-325mg tablet PO PRN ×2 (00:48→05:33)
[2020-05-09 05:56] LABS: BASOPHILS # (AUTO) 0.1 X10'3 (0-0.2); BASOPHILS % (AUTO) 0.6 % (0-1); EOSINOPHILS # (AUTO) 0.4 X10'3 (0-0.9); EOSINOPHILS % (AUTO) 3.6 % (0-6); HEMATOCRIT 27.8 % (42.0-52.0); HEMOGLOBIN 9.3 g/dl (14.0-17.9); LYMPHOCYTES # (AUTO) 1.2 X10'3 (1.1-4.8); LYMPHOCYTES % (AUTO) 10.5 % (21-51); MEAN CORPUSCULAR HEMOGLOBIN 30.5 PG (27.0-31.0); MEAN CORPUSCULAR HGB CONC 33.3 g/dL (33.0-36.5); MEAN CORPUSCULAR VOLUME 91.6 FL (78-98); MEAN PLATELET VOLUME 7.7 FL (7.4-10.4); MONOCYTES # (AUTO) 0.7 X10'3 (0-0.9); MONOCYTES % (AUTO) 5.9 % (2-12); NEUTROPHILS # (AUTO) 9.4 X10'3 (1.8-7.7); NEUTROPHILS % (AUTO) 79.4 % (42-75); PLATELET COUNT 304 X10'3 (140-440); RED BLOOD COUNT 3.04 X10'6 (4.70-6.10); RED CELL DISTRIBUTION WIDTH 17.1 % (11.5-14.5); WHITE BLOOD COUNT 11.8 X10'3 (4.5-11.0)
--- NOTE | 2020-05-09 06:30 | NUR ---
Problems reprioritized. Patient report given, questions answered & plan of care reviewed with WAYNE RYAN.
--- NOTE | 2020-05-09 06:38 | NUR ---
Patient in room [facility] 351. I have received report from Jannie RYAN and had the opportunity to ask questions and assume patient care.
[2020-05-09 07:00] VITALS: BP 137/93
[2020-05-09] MEDS: zinc sulfate 220mg capsule PO SCH ×2 (07:39→21:07)
[2020-05-09] MEDS: multivitamins, therapeutics tablet PO SCH (07:39)
[2020-05-09] MEDS: furosemide 40mg/4ml inj IV SCH (07:39)
[2020-05-09] MEDS: tacrolimus anhydrous 1mg capsule PO SCH ×2 (07:40→21:06)
[2020-05-09 07:46] LABS: TOTAL CELLS COUNTED 100
[2020-05-09 07:48] LABS: ANISOCYTOSIS 1+; PLATELET ESTIMATE NORMAL; POLYCHROMASIA FEW; STOMATOCYTES 1+; TEAR DROP CELLS FEW
--- NOTE | 2020-05-09 09:08 | NUR ---
Paged Dr. Garcia regarding alternative pain medicine (i.e., without Tylenol with it due to history of liver transplant)
[2020-05-09] MEDS: traMADol 50MG tablet PO PRN ×3 (09:40→21:07)
--- NOTE | 2020-05-09 10:13 | NUR ---
Per lab, Tacrolimus level drawn on 05/07 will expect to have result posted either today or tomorrow. Dr. Garcia was notified about this.
[2020-05-09 11:00] VITALS: BP 140/97
[2020-05-09 18:00] VITALS: BP 135/89
--- NOTE | 2020-05-09 18:33 | NUR ---
Problems reprioritized. Patient report given, questions answered & plan of care reviewed with Jannie RYAN.
--- NOTE | 2020-05-09 18:35 | NUR ---
Patient in room [facility] 351. I have received report from WAYNE RYAN and had the opportunity to ask questions and assume patient care.
--- NOTE | 2020-05-09 19:45 | NUR ---
Patient report given, questions answered & plan of care reviewed with MADDIE RYAN.
--- NOTE | 2020-05-09 20:00 | NUR ---
Patient in room [facility] 351. I have received report from Kati RYAN and had the opportunity to ask questions and assume patient care.
[2020-05-09] MEDS: insulin glargine (Lantus) pen - multi-dose SQ SCH (21:00)
[2020-05-10 00:39] VITALS: BP 127/87
[2020-05-10] MEDS: traMADol 50MG tablet PO PRN ×5 (01:22→20:14)
[2020-05-10 05:28] LABS: BASOPHILS % (AUTO) 0.5 % (0-1); EOSINOPHILS # (AUTO) 0.3 X10'3 (0-0.9); EOSINOPHILS % (AUTO) 2.4 % (0-6); HEMOGLOBIN 9.8 g/dl (14.0-17.9); LYMPHOCYTES # (AUTO) 0.9 X10'3 (1.1-4.8); LYMPHOCYTES % (AUTO) 8.1 % (21-51); MEAN CORPUSCULAR HEMOGLOBIN 30.6 PG (27.0-31.0); MEAN CORPUSCULAR HGB CONC 33.6 g/dL (33.0-36.5); MEAN CORPUSCULAR VOLUME 91.2 FL (78-98); MEAN PLATELET VOLUME 7.7 FL (7.4-10.4); MONOCYTES # (AUTO) 0.8 X10'3 (0-0.9); MONOCYTES % (AUTO) 7.5 % (2-12); NEUTROPHILS # (AUTO) 8.6 X10'3 (1.8-7.7); NEUTROPHILS % (AUTO) 81.5 % (42-75); PLATELET COUNT 249 X10'3 (140-440); RED BLOOD COUNT 3.18 X10'6 (4.70-6.10); RED CELL DISTRIBUTION WIDTH 16.8 % (11.5-14.5); WHITE BLOOD COUNT 10.6 X10'3 (4.5-11.0)
[2020-05-10 05:52] LABS: TOTAL CELLS COUNTED 100
[2020-05-10 05:53] LABS: ANISOCYTOSIS 1+; PLATELET ESTIMATE NORMAL; POLYCHROMASIA FEW; STOMATOCYTES 1+; TEAR DROP CELLS FEW
[2020-05-10 06:30] VITALS: BP 108/82
--- NOTE | 2020-05-10 06:35 | NUR ---
Problems reprioritized. Patient report given, questions answered & plan of care reviewed with Effie RN.
--- NOTE | 2020-05-10 06:40 | NUR ---
Patient in room [facility] 351. I have received report from SHELBY Chowdary and had the opportunity to ask questions and assume patient care.
[2020-05-10] MEDS: zinc sulfate 220mg capsule PO SCH ×2 (07:46→20:14)
[2020-05-10] MEDS: multivitamins, therapeutics tablet PO SCH (07:46)
[2020-05-10] MEDS: tacrolimus anhydrous 1mg capsule PO SCH ×2 (07:46→20:12)
[2020-05-10] MEDS: furosemide 40mg/4ml inj IV SCH (07:46)
[2020-05-10 08:36] LABS: ALANINE AMINOTRANSFERASE 68 U/L (12-78); ALBUMIN 2.3 G/DL (3.4-5.0); ALBUMIN/GLOBULIN RATIO 0.4 (1.1-1.5); ALKALINE PHOSPHATASE 133 IU/L (46-116); ANION GAP 17 (8-16); ASPARTATE AMINO TRANSFERASE 20 U/L (10-37); BILIRUBIN,TOTAL 0.9 MG/DL (0.1-1.0); BLOOD UREA NITROGEN 93 MG/DL (7-18); BUN/CREATININE RATIO 33.2 (5.4-32.0); CALCIUM 8.8 MG/DL (8.5-10.1); CHLORIDE 97 MMOL/L (99-107); GLUCOSE 94 MG/DL (70-104); POTASSIUM 4.1 MMOL/L (3.5-5.1); SODIUM 132 MMOL/L (135-145); TOTAL CARBON DIOXIDE 18.3 MMOL/L (24-32); TOTAL PROTEIN 7.5 G/DL (6.4-8.2); eGFR 24 ML/MIN
[2020-05-10 11:37] VITALS: BP 132/85
--- NOTE | 2020-05-10 18:40 | NUR ---
Problems reprioritized. Patient report given, questions answered & plan of care reviewed with SHELBY Mireles.
[2020-05-10 19:00] VITALS: BP 148/92
--- NOTE | 2020-05-10 19:00 | NUR ---
Patient in room [facility] 351. I have received report from Effie RYAN and had the opportunity to ask questions and assume patient care.
[2020-05-10] MEDS: Melatonin 3mg tablet PO PRN (20:14)
--- NOTE | 2020-05-10 23:39 | NUR ---
[facility]' [facility].
[2020-05-11] VITALS: BP 115/75
[2020-05-11] MEDS: traMADol 50MG tablet PO PRN ×3 (04:53→20:17)
--- NOTE | 2020-05-11 05:36 | NUR ---
Patient need 2 person assist for repositioning. Addendum: 05/11/20 at 0537 by Aline Teran RN Amended: Links added.
[2020-05-11 06:01] LABS: BASOPHILS % (AUTO) 0.1 % (0-1); EOSINOPHILS # (AUTO) 0.2 X10'3 (0-0.9); EOSINOPHILS % (AUTO) 1.6 % (0-6); HEMATOCRIT 26.7 % (42.0-52.0); HEMOGLOBIN 8.7 g/dl (14.0-17.9); LYMPHOCYTES # (AUTO) 0.9 X10'3 (1.1-4.8); LYMPHOCYTES % (AUTO) 7.2 % (21-51); MEAN CORPUSCULAR HGB CONC 32.6 g/dL (33.0-36.5); MEAN CORPUSCULAR VOLUME 91.9 FL (78-98); MEAN PLATELET VOLUME 7.6 FL (7.4-10.4); MONOCYTES # (AUTO) 0.8 X10'3 (0-0.9); MONOCYTES % (AUTO) 6.7 % (2-12); NEUTROPHILS # (AUTO) 10.4 X10'3 (1.8-7.7); NEUTROPHILS % (AUTO) 84.4 % (42-75); PLATELET COUNT 281 X10'3 (140-440); RED CELL DISTRIBUTION WIDTH 16.5 % (11.5-14.5); WHITE BLOOD COUNT 12.4 X10'3 (4.5-11.0)
[2020-05-11 06:20] LABS: ALANINE AMINOTRANSFERASE 53 U/L (12-78); ALBUMIN 2.2 G/DL (3.4-5.0); ALBUMIN/GLOBULIN RATIO 0.4 (1.1-1.5); ALKALINE PHOSPHATASE 139 IU/L (46-116); ANION GAP 19 (8-16); ASPARTATE AMINO TRANSFERASE 19 U/L (10-37); BILIRUBIN,TOTAL 0.8 MG/DL (0.1-1.0); BLOOD UREA NITROGEN 96 MG/DL (7-18); BUN/CREATININE RATIO 33.2 (5.4-32.0); CALCIUM 8.9 MG/DL (8.5-10.1); CHLORIDE 96 MMOL/L (99-107); CREATININE 2.89 MG/DL (0.60-1.10); GLUCOSE 75 MG/DL (70-104); MAGNESIUM 2.1 MG/DL (1.5-2.4); POTASSIUM 4.5 MMOL/L (3.5-5.1); SODIUM 131 MMOL/L (135-145); TOTAL CARBON DIOXIDE 16.1 MMOL/L (24-32); TOTAL PROTEIN 7.5 G/DL (6.4-8.2); eGFR 23 ML/MIN
--- NOTE | 2020-05-11 06:30 | NUR ---
Patient in room [facility] 351. I have received report from Luiza RYAN and had the opportunity to ask questions and assume patient care.
--- NOTE | 2020-05-11 06:30 | NUR ---
Patient in room [facility] 351. I have received report from SHELBY Mireles and had the opportunity to ask questions and assume patient care.
--- NOTE | 2020-05-11 06:31 | NUR ---
Problems reprioritized. Patient report given, questions answered & plan of care reviewed with Christiana RYAN. Addendum: 05/11/20 at 0641 by Gracie Perez RN Correction: Documented in the wrong chart
[2020-05-11 06:36] LABS: TOTAL CELLS COUNTED 100
[2020-05-11 06:37] LABS: LARGE PLATELETS FEW; PLATELET ESTIMATE NORMAL
[2020-05-11 06:38] LABS: ANISOCYTOSIS 1+
[2020-05-11 07:00] VITALS: BP 102/63
[2020-05-11] MEDS: zinc sulfate 220mg capsule PO SCH ×3 (07:58→20:22)
[2020-05-11] MEDS: multivitamins, therapeutics tablet PO SCH (07:58)
[2020-05-11] MEDS: tacrolimus anhydrous 1mg capsule PO SCH ×2 (07:58→20:18)
--- NOTE | 2020-05-11 08:00 | NUR ---
Lasix held this morning due to systolic pressure being barley above parameters (102/63), urine output has slowly decreased over last few days, and kidney function seems to be worsening based on labs. Will discuss with .
[2020-05-11 11:00] VITALS: BP 116/72
[2020-05-11] MEDS ORDERED: normal saline 1000ml 1,000 ML IV ONE (12:25)
[2020-05-11] MEDS ORDERED: normal saline 1000ml 1,000 ML IV SCH (12:25)
[2020-05-11] MEDS: sodium bicarbonate (8.4%) inj. 150 MEQ in dextrose 5%-water 1,000 ML IV SCH (14:08)
--- NOTE | 2020-05-11 14:32 | NUR ---
F/u (05/11): Pt now refusing meals not meet nutrition needs since extubation given poor PO. Noted R shoulder hematoma unable to move mostly per MD. RD d/w RN who reports pt still able to self-feed but reports no appetite or want to eat at this time. RD d/w RN regarding appetite stimulant if MD agreeable given poor PO hx. Large BM 05/10 per EMR. Will continue to monitor. Recommend: 1. Continue mechanical soft grind all diet with thin liquids per ST recs 2. Consider diet liberalization to regular with texture per ST recs given poor PO hx; heart healthy diet if PO intake improves given elevated TG and lipids. CHO controlled diet not warranted given A1c 6.1% 3. [place] patient's food preferences: No meat, fish, or tofu. Cottage cheese BIDBD, yogurt q lunch, eggs at breakfast, veggie patties BIDLD, peaches/pears with all meals 4. Encourage PO intake 5. Monitor need for ONS 6. Bowel care PRN 7. Scaled weights per rx Addendum: 05/11/20 at [address] Amended: Links added.
--- NOTE | 2020-05-11 18:15 | NUR ---
Problems reprioritized. Patient report given, questions answered & plan of care reviewed with SHELBY Mireles.
--- NOTE | 2020-05-11 18:15 | NUR ---
Patient in room [facility] 351. I have received report from Christiana RYAN and had the opportunity to ask questions and assume patient care.
[2020-05-11 19:00] VITALS: BP 143/88
[2020-05-11] MEDS: Melatonin 3mg tablet PO PRN (20:22)
[2020-05-12] VITALS: BP 126/75
[2020-05-12] MEDS: sodium bicarbonate (8.4%) inj. 150 MEQ in dextrose 5%-water 1,000 ML IV SCH ×3 (02:29)
[2020-05-12 05:21] LABS: ALANINE AMINOTRANSFERASE 39 U/L (12-78); ALBUMIN 1.8 G/DL (3.4-5.0); ALBUMIN/GLOBULIN RATIO 0.3 (1.1-1.5); ALKALINE PHOSPHATASE 114 IU/L (46-116); ANION GAP 11 (8-16); ASPARTATE AMINO TRANSFERASE 16 U/L (10-37); BILIRUBIN,TOTAL 0.6 MG/DL (0.1-1.0); BLOOD UREA NITROGEN 86 MG/DL (7-18); BUN/CREATININE RATIO 33.5 (5.4-32.0); CALCIUM 8.8 MG/DL (8.5-10.1); CHLORIDE 97 MMOL/L (99-107); CREATININE 2.57 MG/DL (0.60-1.10); GLUCOSE 119 MG/DL (70-104); MAGNESIUM 1.9 MG/DL (1.5-2.4); SODIUM 132 MMOL/L (135-145); TOTAL CARBON DIOXIDE 24.1 MMOL/L (24-32); eGFR 27 ML/MIN
[2020-05-12 05:33] LABS: HEMATOCRIT 22.9 % (42.0-52.0); HEMOGLOBIN 7.8 g/dl (14.0-17.9); MEAN CORPUSCULAR HEMOGLOBIN 30.9 PG (27.0-31.0); MEAN PLATELET VOLUME 7.5 FL (7.4-10.4); PLATELET COUNT 217 X10'3 (140-440); RED BLOOD COUNT 2.52 X10'6 (4.70-6.10); RED CELL DISTRIBUTION WIDTH 16.7 % (11.5-14.5); WHITE BLOOD COUNT 10.3 X10'3 (4.5-11.0)
--- NOTE | 2020-05-12 06:20 | NUR ---
Problems reprioritized. Patient report given, questions answered & plan of care reviewed with Christiana RYAN.
--- NOTE | 2020-05-12 06:30 | NUR ---
Patient in room [facility] 351. I have received report from SHELBY Mireles and had the opportunity to ask questions and assume patient care.
[2020-05-12 07:00] VITALS: BP 129/89
[2020-05-12 07:46] LABS: TOTAL CELLS COUNTED 100
[2020-05-12 07:48] LABS: ANISOCYTOSIS 1+; PLATELET ESTIMATE NORMAL
[2020-05-12 07:49] LABS: POLYCHROMASIA FEW
[2020-05-12 07:50] LABS: HYPOCHROMASIA 1+
[2020-05-12] MEDS ORDERED: furosemide 20 MG/2 ML vial IV SCH (08:00)
[2020-05-12] MEDS: zinc sulfate 220mg capsule PO SCH ×2 (08:02→20:59)
[2020-05-12] MEDS: propranolol 10mg tablet PO SCH ×3 (08:02→20:59)
[2020-05-12] MEDS: multivitamins, therapeutics tablet PO SCH (08:02)
[2020-05-12] MEDS: traMADol 50MG tablet PO PRN ×3 (08:02→21:01)
[2020-05-12] MEDS: tacrolimus anhydrous 1mg capsule PO SCH ×2 (08:09→20:59)
[2020-05-12] MEDS ORDERED: propranolol 10mg tablet PO ONE (11:05)
[2020-05-12 11:19] VITALS: BP 134/75
[2020-05-12] MEDS: normal saline 1000ml 1,000 ML IV SCH ×2 (11:35→23:40)
[2020-05-12] MEDS ORDERED: propranolol 10mg tablet PO SCH (13:00)
[2020-05-12] MEDS: lactose-reduced food (Ensure Enlive) - 237ml bottle PO SCH ×2 (13:00→18:00)
[2020-05-12 13:43] VITALS: BP 136/82
--- NOTE | 2020-05-12 18:12 | NUR ---
Problems reprioritized. Patient report given, questions answered & plan of care reviewed with SHELBY Mireles.
--- NOTE | 2020-05-12 18:15 | NUR ---
Patient in room [facility] 351. I have received report from Christiana RYAN and had the opportunity to ask questions and assume patient care.
[2020-05-12 19:00] VITALS: BP 146/98
[2020-05-13] VITALS: BP 137/96
[2020-05-13] MEDS: traMADol 50MG tablet PO PRN ×4 (01:42→20:38)
--- NOTE | 2020-05-13 06:00 | NUR ---
Patient in room [facility] 351. I have received report from SHELBY Mireles and had the opportunity to ask questions and assume patient care.
[2020-05-13 06:10] LABS: ALANINE AMINOTRANSFERASE 38 U/L (12-78); ALBUMIN 1.6 G/DL (3.4-5.0); ALBUMIN/GLOBULIN RATIO 0.3 (1.1-1.5); ALKALINE PHOSPHATASE 124 IU/L (46-116); ANION GAP 8 (8-16); ASPARTATE AMINO TRANSFERASE 24 U/L (10-37); BILIRUBIN,TOTAL 0.5 MG/DL (0.1-1.0); BLOOD UREA NITROGEN 67 MG/DL (7-18); BUN/CREATININE RATIO 34.9 (5.4-32.0); CALCIUM 8.4 MG/DL (8.5-10.1); CHLORIDE 98 MMOL/L (99-107); CREATININE 1.92 MG/DL (0.60-1.10); GLUCOSE 123 MG/DL (70-104); HEMOGLOBIN 7.3 g/dl (14.0-17.9); MAGNESIUM 1.7 MG/DL (1.5-2.4); MEAN CORPUSCULAR HGB CONC 34.1 g/dL (33.0-36.5); MEAN CORPUSCULAR VOLUME 90.9 FL (78-98); MEAN PLATELET VOLUME 7.6 FL (7.4-10.4); PLATELET COUNT 218 X10'3 (140-440); POTASSIUM 3.9 MMOL/L (3.5-5.1); RED BLOOD COUNT 2.34 X10'6 (4.70-6.10); RED CELL DISTRIBUTION WIDTH 16.3 % (11.5-14.5); SODIUM 131 MMOL/L (135-145); TOTAL CARBON DIOXIDE 24.9 MMOL/L (24-32); TOTAL PROTEIN 6.6 G/DL (6.4-8.2); WHITE BLOOD COUNT 10.4 X10'3 (4.5-11.0); eGFR 37 ML/MIN
[2020-05-13 06:20] LABS: HEMATOCRIT 21.3 % (42.0-52.0)
--- NOTE | 2020-05-13 06:35 | NUR ---
Problems reprioritized. Patient report given, questions answered & plan of care reviewed with Morales Grewal.
[2020-05-13] MEDS: multivitamins, therapeutics tablet PO SCH (07:56)
[2020-05-13] MEDS: zinc sulfate 220mg capsule PO SCH ×2 (07:56→20:38)
[2020-05-13] MEDS: propranolol 10mg tablet PO SCH ×3 (07:56→22:10)
[2020-05-13] MEDS: tacrolimus anhydrous 1mg capsule PO SCH ×2 (07:57→20:39)
[2020-05-13 08:00] VITALS: BP 128/84
[2020-05-13] MEDS: lactose-reduced food (Ensure Enlive) - 237ml bottle PO SCH ×3 (08:00→18:30)
[2020-05-13 09:10] LABS: ANISOCYTOSIS 1+; PLATELET ESTIMATE NORMAL; TOTAL CELLS COUNTED 100
[2020-05-13 09:11] LABS: HYPOCHROMASIA 1+; POLYCHROMASIA FEW
[2020-05-13 11:00] VITALS: BP 137/90
[2020-05-13] MEDS: normal saline 1000ml 1,000 ML IV SCH (13:34)
--- NOTE | 2020-05-13 18:44 | NUR ---
Problems reprioritized. Patient report given, questions answered & plan of care reviewed with Saima RN.
[2020-05-13 19:30] VITALS: BP 163/22
--- NOTE | 2020-05-13 19:30 | NUR ---
guard at bedside; assist with needs Addendum: 05/14/20 at 0540 by Cecilia Lundy RN Amended: Links added.
--- NOTE | 2020-05-13 19:30 | NUR ---
denies numbness or tingling sensation; right upper chest, shoulder, arm & hand edematous; arm elevated on pillow Addendum: 05/14/20 at 0540 by Cecilia Lundy RN Amended: Links added.
--- NOTE | 2020-05-13 21:00 | NUR ---
pt states he wants to hold off on eating; aware of Dr Jack's order to be NPO after midnight Addendum: 05/14/20 at 0430 by Cecilia Lundy RN Amended: Links added.
[2020-05-13 22:10] VITALS: BP 146/89
[2020-05-14] MEDS: traMADol 50MG tablet PO PRN ×5 (00:36→23:27)
[2020-05-14] MEDS ORDERED: oxyCODONE IR 5mg (immed. release) tablet PO ONE (01:30)
[2020-05-14 05:11] LABS: HEMATOCRIT 38.6 % (42.0-52.0); HEMOGLOBIN 13.3 g/dl (14.0-17.9); MEAN CORPUSCULAR HEMOGLOBIN 32.4 PG (27.0-31.0); MEAN CORPUSCULAR HGB CONC 34.4 g/dL (33.0-36.5); MEAN CORPUSCULAR VOLUME 94.2 FL (78-98); MEAN PLATELET VOLUME 8.4 FL (7.4-10.4); PLATELET COUNT 155 X10'3 (140-440); RED CELL DISTRIBUTION WIDTH 12.9 % (11.5-14.5); WHITE BLOOD COUNT 7.4 X10'3 (4.5-11.0)
[2020-05-14 05:25] LABS: ALANINE AMINOTRANSFERASE 33 U/L (12-78); ALBUMIN 2.4 G/DL (3.4-5.0); ALBUMIN/GLOBULIN RATIO 0.7 (1.1-1.5); ALKALINE PHOSPHATASE 41 IU/L (46-116); ANION GAP 10 (8-16); ASPARTATE AMINO TRANSFERASE 28 U/L (10-37); BILIRUBIN,TOTAL 0.6 MG/DL (0.1-1.0); BLOOD UREA NITROGEN 11 MG/DL (7-18); BUN/CREATININE RATIO 8.4 (5.4-32.0); CALCIUM 7.6 MG/DL (8.5-10.1); CHLORIDE 105 MMOL/L (99-107); CREATININE 1.31 MG/DL (0.60-1.10); GLUCOSE 114 MG/DL (70-104); MAGNESIUM 1.7 MG/DL (1.5-2.4); POTASSIUM 3.3 MMOL/L (3.5-5.1); SODIUM 139 MMOL/L (135-145); TOTAL CARBON DIOXIDE 24.4 MMOL/L (24-32); TOTAL PROTEIN 5.9 G/DL (6.4-8.2); TRIGLYCERIDES 68 MG/DL (20-135); eGFR 58 ML/MIN
--- NOTE | 2020-05-14 06:00 | NUR ---
Patient in room [facility] 351. I have received report from SHELBY Landaverde and had the opportunity to ask questions and assume patient care.
[2020-05-14 06:36] LABS: TOTAL CELLS COUNTED 100
[2020-05-14 06:38] LABS: PLATELET ESTIMATE NORMAL; SMUDGE CELLS FEW
[2020-05-14 07:00] VITALS: BP 157/91
[2020-05-14] MEDS: lactose-reduced food (Ensure Enlive) - 237ml bottle PO SCH ×3 (08:00→18:00)
[2020-05-14] MEDS: propranolol 10mg tablet PO SCH ×3 (08:52→20:23)
[2020-05-14] MEDS: tacrolimus anhydrous 1mg capsule PO SCH ×2 (08:52→20:12)
[2020-05-14] MEDS: zinc sulfate 220mg capsule PO SCH ×2 (08:52→20:12)
[2020-05-14] MEDS: multivitamins, therapeutics tablet PO SCH (08:52)
--- NOTE | 2020-05-14 10:24 | NUR ---
Reassessment: Pt continues with 0-25% PO intake and refusing meals not meeting nutrient needs. Ensure Enlive TID available however not being given at this time as pt currently NPO for possible surgery d/t hematoma shown in CT per MD notes. Pt has been seen by GUILLE and PO intake was encouraged. LBM 05/13. Limited interventions at this time given NPO status. Will continue to follow closely. Recommend: 1. Continue mechanical soft grind all diet with thin liquids per ST recs 2. Consider diet liberalization to regular with texture per ST recs given poor PO hx; heart healthy diet if PO intake improves given elevated TG and lipids. CHO controlled diet not warranted given A1c 6.1% 3. [place] patient's food preferences: No meat, fish, or tofu. Cottage cheese BIDBD, yogurt q lunch, eggs at breakfast, veggie patties BIDLD, peaches/pears with all meals 4. Encourage PO intake 5. Ensure Enlive TID 6. Bowel care PRN 7. Scaled weights per rx Addendum: 05/14/20 at [address] Amended: Links added.
[2020-05-14 11:00] VITALS: BP 150/89
[2020-05-14] MEDS ORDERED: magnesium 4gm in 100ml NS 100 ML IV PRN (12:15)
[2020-05-14] MEDS ORDERED: magnesium Cl slow-release 64mg tablet PO PRN (12:15)
[2020-05-14] MEDS ORDERED: potassium CL 10mEq/100ml bag 100 ML IV PRN (12:15)
[2020-05-14] MEDS: K and/or MAG REPLACEMENT MC SCH ×2 (12:15→19:14)
[2020-05-14] MEDS ORDERED: potassium Cl 20 mEq SR tablet PO PRN (12:15)
[2020-05-14] MEDS: potassium Cl 20 mEq SR tablet PO PRN ×2 (13:07→20:11)
[2020-05-14] MEDS: normal saline 1000ml 1,000 ML IV SCH (13:11)
--- NOTE | 2020-05-14 18:29 | NUR ---
Problems reprioritized. Patient report given, questions answered & plan of care reviewed with SHELBY Carlos.
--- NOTE | 2020-05-14 18:33 | NUR ---
Patient in room [facility] 351. I have received report from SHELBY Nielsen and had the opportunity to ask questions and assume patient care.
[2020-05-14 20:15] VITALS: BP 158/96
[2020-05-15 00:23] VITALS: BP 168/98
[2020-05-15] MEDS ORDERED: oxyCODONE IR 5mg (immed. release) tablet PO ONE (01:25)
--- NOTE | 2020-05-15 01:30 | NUR ---
Patient with elevated BPs, 158/96-168/98 in addition to pain level of 10/10. Tramadol 100mg has been given PRN and pt states pain is not going away. Called and informed Dr. Michel. Received one time dose of Oxy IR 5mg. Order placed. Will continue to monitor BPs.
[2020-05-15] MEDS: potassium Cl 20 mEq SR tablet PO PRN (01:45)
[2020-05-15] MEDS: normal saline 1000ml 1,000 ML IV SCH ×2 (04:09→21:53)
[2020-05-15] MEDS: traMADol 50MG tablet PO PRN ×5 (04:09→21:50)
[2020-05-15 04:39] LABS: ALANINE AMINOTRANSFERASE 48 U/L (12-78); ALBUMIN 1.6 G/DL (3.4-5.0); ALBUMIN/GLOBULIN RATIO 0.3 (1.1-1.5); ALKALINE PHOSPHATASE 139 IU/L (46-116); ANION GAP 9 (8-16); ASPARTATE AMINO TRANSFERASE 33 U/L (10-37); BILIRUBIN,TOTAL 0.6 MG/DL (0.1-1.0); BLOOD UREA NITROGEN 46 MG/DL (7-18); BUN/CREATININE RATIO 26.4 (5.4-32.0); CALCIUM 8.5 MG/DL (8.5-10.1); CHLORIDE 101 MMOL/L (99-107); CREATININE 1.74 MG/DL (0.60-1.10); GLUCOSE 87 MG/DL (70-104); MAGNESIUM 1.4 MG/DL (1.5-2.4); POTASSIUM 5.1 MMOL/L (3.5-5.1); SODIUM 132 MMOL/L (135-145); TOTAL CARBON DIOXIDE 21.9 MMOL/L (24-32); TRIGLYCERIDES 73 MG/DL (20-135); eGFR 42 ML/MIN
--- NOTE | 2020-05-15 06:30 | NUR ---
Patient in room [facility] 351. I have received report from Breanna RYAN and had the opportunity to ask questions and assume patient care.
--- NOTE | 2020-05-15 06:37 | NUR ---
Problems reprioritized. Patient report given, questions answered & plan of care reviewed with SHELBY Bowman.
[2020-05-15 07:00] VITALS: BP 144/93
[2020-05-15] MEDS: K and/or MAG REPLACEMENT MC SCH ×2 (08:00→19:40)
[2020-05-15] MEDS: propranolol 10mg tablet PO SCH ×3 (08:54→21:50)
[2020-05-15] MEDS: multivitamins, therapeutics tablet PO SCH (08:54)
[2020-05-15] MEDS: zinc sulfate 220mg capsule PO SCH ×2 (08:54→19:56)
[2020-05-15] MEDS: tacrolimus anhydrous 1mg capsule PO SCH ×2 (08:54→19:56)
[2020-05-15] MEDS: lactose-reduced food (Ensure Enlive) - 237ml bottle PO SCH ×3 (08:55→18:00)
[2020-05-15 11:00] VITALS: BP 159/102
--- NOTE | 2020-05-15 18:52 | NUR ---
Patient in room [facility] 351. I have received report from SHELBY Bowman and had the opportunity to ask questions and assume patient care.
--- NOTE | 2020-05-15 18:56 | NUR ---
Problems reprioritized. Patient report given, questions answered & plan of care reviewed with Breanna RYAN.
[2020-05-15 20:00] VITALS: BP 152/98
[2020-05-16] VITALS (9 sets, daily range): BP systolic 145–182; BP diastolic 98–118
[2020-05-16] MEDS ORDERED: gabapentin 400mg capsule PO SCH
[2020-05-16] MEDS: gabapentin 100mg capsule PO SCH ×4 (00:30→20:06)
[2020-05-16] MEDS: traMADol 50MG tablet PO PRN ×4 (03:38→21:38)
[2020-05-16 05:15] LABS: BASOPHILS % (AUTO) 0.3 % (0-1); EOSINOPHILS # (AUTO) 0.1 X10'3 (0-0.9); LYMPHOCYTES # (AUTO) 0.6 X10'3 (1.1-4.8); LYMPHOCYTES % (AUTO) 5.9 % (21-51); MEAN CORPUSCULAR HEMOGLOBIN 30.1 PG (27.0-31.0); MEAN CORPUSCULAR HGB CONC 33.1 g/dL (33.0-36.5); MEAN PLATELET VOLUME 7.3 FL (7.4-10.4); MONOCYTES # (AUTO) 0.8 X10'3 (0-0.9); MONOCYTES % (AUTO) 7.6 % (2-12); NEUTROPHILS # (AUTO) 8.9 X10'3 (1.8-7.7); NEUTROPHILS % (AUTO) 85.2 % (42-75); PLATELET COUNT 252 X10'3 (140-440); RED BLOOD COUNT 2.33 X10'6 (4.70-6.10); RED CELL DISTRIBUTION WIDTH 16.1 % (11.5-14.5); WHITE BLOOD COUNT 10.5 X10'3 (4.5-11.0)
[2020-05-16 05:19] LABS: ALANINE AMINOTRANSFERASE 60 U/L (12-78); ALBUMIN 1.6 G/DL (3.4-5.0); ALBUMIN/GLOBULIN RATIO 0.3 (1.1-1.5); ALKALINE PHOSPHATASE 157 IU/L (46-116); ANION GAP 12 (8-16); ASPARTATE AMINO TRANSFERASE 45 U/L (10-37); BILIRUBIN,TOTAL 0.6 MG/DL (0.1-1.0); BLOOD UREA NITROGEN 41 MG/DL (7-18); BUN/CREATININE RATIO 21.9 (5.4-32.0); CALCIUM 8.6 MG/DL (8.5-10.1); CHLORIDE 98 MMOL/L (99-107); CREATININE 1.87 MG/DL (0.60-1.10); GLUCOSE 71 MG/DL (70-104); MAGNESIUM 1.4 MG/DL (1.5-2.4); PHOSPHORUS 3.6 MG/DL (2.3-4.5); POTASSIUM 5.4 MMOL/L (3.5-5.1); SODIUM 130 MMOL/L (135-145); TOTAL CARBON DIOXIDE 20.1 MMOL/L (24-32); TOTAL PROTEIN 7.1 G/DL (6.4-8.2); eGFR 38 ML/MIN
[2020-05-16 05:24] LABS: HEMATOCRIT 21.2 % (42.0-52.0)
--- NOTE | 2020-05-16 05:29 | NUR ---
Dr. Cornejo paged. PAGER ID: [phone] MESSAGE: Tim Cummings DX: MELLO, hyperkalemia. Today H/H 7.0/21.2, was 13.3/38.6 on 05/14. Has hematoma on right chest, stable. Breanna Surg [id number]
--- NOTE | 2020-05-16 05:32 | NUR ---
Received call from Dr. Cornejo. Per Dr. Cornejo, decreased H/H to be addressed with on coming physician. No change in order. Will address with oncoming nurse.
--- NOTE | 2020-05-16 06:30 | NUR ---
Patient in room [facility] 351. I have received report from Breanna RYAN and had the opportunity to ask questions and assume patient care.
--- NOTE | 2020-05-16 06:53 | NUR ---
Problems reprioritized. Patient report given, questions answered & plan of care reviewed with SHELBY Bowman.
--- NOTE | 2020-05-16 07:24 | NUR ---
PAGER ID: [phone] MESSAGE: Surgical Duke Bowman RN ext [phone]. RE: Tim Cummings. Reporting lab results: hgb 7.0 hct 21.2, K 5.4 this am. Do you want blood transfusion order?
[2020-05-16] MEDS: K and/or MAG REPLACEMENT MC SCH ×2 (08:00→20:00)
[2020-05-16] MEDS: tacrolimus anhydrous 1mg capsule PO SCH ×2 (08:47→20:06)
[2020-05-16] MEDS: multivitamins, therapeutics tablet PO SCH (08:48)
[2020-05-16] MEDS: zinc sulfate 220mg capsule PO SCH ×2 (08:48→20:06)
[2020-05-16] MEDS: lactose-reduced food (Ensure Enlive) - 237ml bottle PO SCH ×3 (08:48→18:00)
[2020-05-16] MEDS: propranolol 10mg tablet PO SCH ×3 (08:48→20:06)
--- NOTE | 2020-05-16 14:46 | NUR ---
Dr. Jack was notified during his rounds that [facility] said that the blood will be coming from [place] and wont be available until sometime in the afternoon.
--- NOTE | 2020-05-16 17:12 | NUR ---
1st unit of PRBC started as ordered. Pretransfusion BP was high 172/110, HR 105. Patient stated he is in pain 8/10 at the right shoulder area and knee - Tramadol 100mg PO given as indicated. Also patient admitted being a little anxious about this blood transfusion as I started preparing for the blood transfusion. Will monitor
--- NOTE | 2020-05-16 17:27 | NUR ---
First 15 minutes of blood transfusion so far no reported problem. BP still high but lower that pretransfusion BP, patient just got Tramadol for pain
--- NOTE | 2020-05-16 18:32 | NUR ---
Problems reprioritized. Patient report given, questions answered & plan of care reviewed with Az RYAN.
[2020-05-16] MEDS ORDERED: cloNIDine 0.1 mg tablet PO ONE (21:50)
[2020-05-16] MEDS: normal saline 1000ml 1,000 ML IV SCH (23:28)
[2020-05-17] VITALS: BP 176/97
[2020-05-17] MEDS: traMADol 50MG tablet PO PRN ×4 (05:09→23:50)
[2020-05-17 06:09] LABS: ALANINE AMINOTRANSFERASE 66 U/L (12-78); ALBUMIN 1.5 G/DL (3.4-5.0); ALBUMIN/GLOBULIN RATIO 0.3 (1.1-1.5); ALKALINE PHOSPHATASE 159 IU/L (46-116); ANION GAP 9 (8-16); ASPARTATE AMINO TRANSFERASE 41 U/L (10-37); BILIRUBIN,TOTAL 0.7 MG/DL (0.1-1.0); BLOOD UREA NITROGEN 44 MG/DL (7-18); CALCIUM 8.7 MG/DL (8.5-10.1); CHLORIDE 100 MMOL/L (99-107); CREATININE 1.83 MG/DL (0.60-1.10); GLUCOSE 104 MG/DL (70-104); PHOSPHORUS 4.2 MG/DL (2.3-4.5); POTASSIUM 5.3 MMOL/L (3.5-5.1); SODIUM 130 MMOL/L (135-145); TOTAL CARBON DIOXIDE 20.7 MMOL/L (24-32); eGFR 39 ML/MIN
[2020-05-17 06:14] LABS: BASOPHILS % (AUTO) 0.5 % (0-1); EOSINOPHILS # (AUTO) 0.2 X10'3 (0-0.9); EOSINOPHILS % (AUTO) 1.8 % (0-6); HEMATOCRIT 22.5 % (42.0-52.0); HEMOGLOBIN 7.5 g/dl (14.0-17.9); LYMPHOCYTES # (AUTO) 0.7 X10'3 (1.1-4.8); LYMPHOCYTES % (AUTO) 7.7 % (21-51); MEAN CORPUSCULAR HEMOGLOBIN 30.1 PG (27.0-31.0); MEAN CORPUSCULAR HGB CONC 33.2 g/dL (33.0-36.5); MEAN CORPUSCULAR VOLUME 90.7 FL (78-98); MONOCYTES # (AUTO) 0.8 X10'3 (0-0.9); NEUTROPHILS # (AUTO) 7.4 X10'3 (1.8-7.7); PLATELET COUNT 256 X10'3 (140-440); RED BLOOD COUNT 2.48 X10'6 (4.70-6.10); RED CELL DISTRIBUTION WIDTH 15.6 % (11.5-14.5); WHITE BLOOD COUNT 9.1 X10'3 (4.5-11.0)
--- NOTE | 2020-05-17 06:30 | NUR ---
Patient in room [facility] 351. I have received report from SHELBY Bernardo and had the opportunity to ask questions and assume patient care.
[2020-05-17 07:00] VITALS: BP 175/107
[2020-05-17] MEDS: zinc sulfate 220mg capsule PO SCH ×2 (07:26→19:33)
[2020-05-17] MEDS: multivitamins, therapeutics tablet PO SCH (07:26)
[2020-05-17] MEDS: propranolol 10mg tablet PO SCH ×3 (07:26→21:27)
[2020-05-17] MEDS: gabapentin 100mg capsule PO SCH ×3 (07:26→21:27)
[2020-05-17] MEDS: tacrolimus anhydrous 1mg capsule PO SCH ×2 (07:27→19:34)
[2020-05-17] MEDS: lactose-reduced food (Ensure Enlive) - 237ml bottle PO SCH ×3 (08:00→18:01)
[2020-05-17] MEDS: K and/or MAG REPLACEMENT MC SCH ×2 (08:00→20:00)
[2020-05-17 08:57] VITALS: BP 189/119
--- NOTE | 2020-05-17 09:24 | NUR ---
Paged [phone] re bp 189/119 after BP meds. No call back, repaged
[2020-05-17] MEDS ORDERED: hydrALAZINE 20mg/ml inj. IV PRN (09:30)
[2020-05-17] MEDS ORDERED: hydrALAZINE 20mg/ml inj. IV ONE ×2 (09:30→10:04)
[2020-05-17] MEDS ORDERED: sodium polystyrene sulfonate 15gm/60ml oral suspension PO ONE (11:20)
[2020-05-17] MEDS: cloNIDine 0.1 mg tablet PO SCH ×2 (12:37→19:34)
[2020-05-17 12:45] VITALS: BP 168/99
--- NOTE | 2020-05-17 16:00 | NUR ---
Joe consult: Pt PO remains poor ~25-50% avg meals fluctuating w/ 0-25% avg ensure enlives TIDWM though did consume 100% ensure at breakfast this AM. Continuing to honor food preferences as shown below. Pt agitated w/ hospital routine per EMR. Joe 12; skin intact w/ R shoulder hematoma swelling to receive conservative management per MD. Sepsis resolved per MD. Receiving electrolyte replacement per protocol. LB 05/16. Will continue to monitor for PO diet/ONS Acceptance. Recommend: 1. Continue mechanical soft grind all diet with thin liquids per ST recs 2. Consider diet liberalization to regular with texture per ST recs given poor PO hx; heart healthy diet if PO intake improves given elevated TG and lipids. CHO controlled diet not warranted given A1c 6.1% 3. [place] patient's food preferences: No meat, fish, or tofu. Cottage cheese BIDBD, yogurt q lunch, eggs at breakfast, veggie patties BIDLD, peaches/pears with all meals 4. Encourage PO intake 5. Ensure Enlive TID 6. Bowel care PRN 7. Scaled weights per rx Addendum: 05/17/20 at [address] Amended: Links added.
--- NOTE | 2020-05-17 17:59 | NUR ---
Problems reprioritized. Patient report given, questions answered & plan of care reviewed with Shirin Gould RN.
[2020-05-17] MEDS: normal saline 1000ml 1,000 ML IV SCH (19:08)
[2020-05-17 19:26] VITALS: BP 184/109
[2020-05-17 21:00] VITALS: BP 119/90
[2020-05-18 01:47] VITALS: BP 138/100
[2020-05-18] MEDS: traMADol 50MG tablet PO PRN ×3 (04:04→20:09)
[2020-05-18 04:39] LABS: BASOPHILS % (AUTO) 0.5 % (0-1); EOSINOPHILS # (AUTO) 0.2 X10'3 (0-0.9); EOSINOPHILS % (AUTO) 2.3 % (0-6); HEMOGLOBIN 7.9 g/dl (14.0-17.9); LYMPHOCYTES # (AUTO) 0.7 X10'3 (1.1-4.8); LYMPHOCYTES % (AUTO) 8.9 % (21-51); MEAN CORPUSCULAR HEMOGLOBIN 29.6 PG (27.0-31.0); MEAN CORPUSCULAR HGB CONC 32.7 g/dL (33.0-36.5); MEAN CORPUSCULAR VOLUME 90.4 FL (78-98); MEAN PLATELET VOLUME 7.1 FL (7.4-10.4); MONOCYTES # (AUTO) 0.8 X10'3 (0-0.9); MONOCYTES % (AUTO) 10.6 % (2-12); NEUTROPHILS # (AUTO) 5.9 X10'3 (1.8-7.7); NEUTROPHILS % (AUTO) 77.7 % (42-75); PLATELET COUNT 259 X10'3 (140-440); RED BLOOD COUNT 2.66 X10'6 (4.70-6.10); RED CELL DISTRIBUTION WIDTH 16.3 % (11.5-14.5); WHITE BLOOD COUNT 7.6 X10'3 (4.5-11.0)
[2020-05-18 04:44] LABS: ALANINE AMINOTRANSFERASE 79 U/L (12-78); ALBUMIN 1.5 G/DL (3.4-5.0); ALBUMIN/GLOBULIN RATIO 0.3 (1.1-1.5); ALKALINE PHOSPHATASE 163 IU/L (46-116); ANION GAP 11 (8-16); ASPARTATE AMINO TRANSFERASE 58 U/L (10-37); BILIRUBIN,TOTAL 0.5 MG/DL (0.1-1.0); BLOOD UREA NITROGEN 39 MG/DL (7-18); CALCIUM 8.7 MG/DL (8.5-10.1); CHLORIDE 101 MMOL/L (99-107); CREATININE 1.86 MG/DL (0.60-1.10); GLUCOSE 96 MG/DL (70-104); PHOSPHORUS 4.1 MG/DL (2.3-4.5); POTASSIUM 4.5 MMOL/L (3.5-5.1); SODIUM 132 MMOL/L (135-145); TOTAL CARBON DIOXIDE 20.2 MMOL/L (24-32); TOTAL PROTEIN 7.1 G/DL (6.4-8.2); eGFR 38 ML/MIN
--- NOTE | 2020-05-18 06:22 | NUR ---
Problems reprioritized. Patient report given, questions answered & plan of care reviewed with SHELBY Cohen.
--- NOTE | 2020-05-18 06:31 | NUR ---
Patient in room [facility]. I have received report from SHELBY Bell and had the opportunity to ask questions and assume patient care. Addendum: 05/18/20 at 0632 by Vicki Maravilla RN Report received from SHELBY Carpio, not SHELBY Bell
[2020-05-18 07:00] VITALS: BP 179/107
[2020-05-18] MEDS: cloNIDine 0.1 mg tablet PO SCH ×2 (07:17→20:09)
[2020-05-18] MEDS: propranolol 10mg tablet PO SCH ×3 (07:17→20:09)
[2020-05-18] MEDS: gabapentin 100mg capsule PO SCH ×3 (07:17→20:09)
[2020-05-18] MEDS: multivitamins, therapeutics tablet PO SCH (07:17)
[2020-05-18] MEDS: tacrolimus anhydrous 1mg capsule PO SCH ×2 (07:18→20:09)
[2020-05-18] MEDS: zinc sulfate 220mg capsule PO SCH ×2 (07:18→20:08)
[2020-05-18] MEDS: K and/or MAG REPLACEMENT MC SCH ×2 (08:00→20:00)
[2020-05-18] MEDS: lactose-reduced food (Ensure Enlive) - 237ml bottle PO SCH ×3 (08:38→18:18)
[2020-05-18 11:16] VITALS: BP 166/94
--- NOTE | 2020-05-18 18:02 | NUR ---
Problems reprioritized. Patient report given, questions answered & plan of care reviewed with SHELBY Carpio.
--- NOTE | 2020-05-18 18:22 | NUR ---
Patient in room [facility] 351. I have received report from SHELBY Cohen and had the opportunity to ask questions and assume patient care.
[2020-05-18 19:11] VITALS: BP 144/88
[2020-05-18 21:40] VITALS: BP 141/79
[2020-05-18] MEDS: amLODIPine 5mg tablet PO SCH (21:43)
[2020-05-18 23:45] VITALS: BP 141/75
[2020-05-19] VITALS (7 sets, daily range): BP systolic 141–155; BP diastolic 86–93
[2020-05-19] MEDS: traMADol 50MG tablet PO PRN ×4 (02:39→20:04)
--- NOTE | 2020-05-19 02:56 | NUR ---
Pt states able to turn self and refused to be turned. Pt reminded to turn from side to side slightly to prevent pressure to one area for too long.
[2020-05-19 05:22] LABS: BASOPHILS % (AUTO) 0.5 % (0-1); EOSINOPHILS # (AUTO) 0.2 X10'3 (0-0.9); EOSINOPHILS % (AUTO) 3.1 % (0-6); HEMOGLOBIN 7.3 g/dl (14.0-17.9); LYMPHOCYTES # (AUTO) 0.6 X10'3 (1.1-4.8); MEAN CORPUSCULAR HEMOGLOBIN 30.4 PG (27.0-31.0); MEAN CORPUSCULAR HGB CONC 33.3 g/dL (33.0-36.5); MEAN CORPUSCULAR VOLUME 91.1 FL (78-98); MEAN PLATELET VOLUME 6.9 FL (7.4-10.4); MONOCYTES # (AUTO) 0.9 X10'3 (0-0.9); MONOCYTES % (AUTO) 11.9 % (2-12); NEUTROPHILS # (AUTO) 5.7 X10'3 (1.8-7.7); NEUTROPHILS % (AUTO) 76.5 % (42-75); PLATELET COUNT 287 X10'3 (140-440); RED BLOOD COUNT 2.41 X10'6 (4.70-6.10); RED CELL DISTRIBUTION WIDTH 16.6 % (11.5-14.5); WHITE BLOOD COUNT 7.5 X10'3 (4.5-11.0)
[2020-05-19 05:34] LABS: ALANINE AMINOTRANSFERASE 111 U/L (12-78); ALBUMIN 1.5 G/DL (3.4-5.0); ALBUMIN/GLOBULIN RATIO 0.3 (1.1-1.5); ALKALINE PHOSPHATASE 186 IU/L (46-116); ANION GAP 11 (8-16); ASPARTATE AMINO TRANSFERASE 79 U/L (10-37); BILIRUBIN,TOTAL 0.6 MG/DL (0.1-1.0); BLOOD UREA NITROGEN 39 MG/DL (7-18); CALCIUM 8.9 MG/DL (8.5-10.1); CHLORIDE 101 MMOL/L (99-107); CREATININE 1.95 MG/DL (0.60-1.10); GLUCOSE 101 MG/DL (70-104); PHOSPHORUS 4.3 MG/DL (2.3-4.5); POTASSIUM 4.8 MMOL/L (3.5-5.1); SODIUM 132 MMOL/L (135-145); TOTAL PROTEIN 7.1 G/DL (6.4-8.2); eGFR 36 ML/MIN
--- NOTE | 2020-05-19 06:02 | NUR ---
paged about H/H 7.3/22.0 down from 7.9/24.0
--- NOTE | 2020-05-19 06:24 | NUR ---
Problems reprioritized. Patient report given, questions answered & plan of care reviewed with SHELBY Watters.
--- NOTE | 2020-05-19 06:44 | NUR ---
Patient in room [facility] 351. I have received report from Shirin Gould RN and had the opportunity to ask questions and assume patient care.
[2020-05-19] MEDS: K and/or MAG REPLACEMENT MC SCH ×2 (08:00→20:00)
[2020-05-19] MEDS: amLODIPine 5mg tablet PO SCH (08:54)
[2020-05-19] MEDS: propranolol 10mg tablet PO SCH ×3 (08:55→20:05)
[2020-05-19] MEDS: cloNIDine 0.1 mg tablet PO SCH ×2 (08:55→20:04)
[2020-05-19] MEDS: zinc sulfate 220mg capsule PO SCH ×2 (08:55→20:04)
[2020-05-19] MEDS: gabapentin 100mg capsule PO SCH ×3 (08:55→20:05)
[2020-05-19] MEDS: multivitamins, therapeutics tablet PO SCH (08:55)
[2020-05-19] MEDS: tacrolimus anhydrous 1mg capsule PO SCH ×2 (08:56→20:05)
[2020-05-19] MEDS: lactose-reduced food (Ensure Enlive) - 237ml bottle PO SCH ×3 (08:57→18:15)
--- NOTE | 2020-05-19 18:00 | NUR ---
PATIENT MEDICATED FOR PAIN X2 WITH GOOD RESULT .PATIENT SEEN BY DR MAHONEY ORDER GIVEN FOR TWO UNITS OF BLOOD. PATIENT TOLERATED FIRST UNIT. WILL REPEAT H&H AT 1900 . WORKED WITH pt SEE NOTE ALL CARES GIVEN. REPORT GIVEN TO ROSE gallardo
--- NOTE | 2020-05-19 18:16 | NUR ---
Patient in room [facility]. I have received report from SHELBY Watters and had the opportunity to ask questions and assume patient care.
[2020-05-19 19:38] LABS: HEMOGLOBIN 8.5 g/dl (14.0-17.9); MEAN CORPUSCULAR HEMOGLOBIN 31.3 PG (27.0-31.0); MEAN CORPUSCULAR HGB CONC 34.1 g/dL (33.0-36.5); MEAN CORPUSCULAR VOLUME 91.9 FL (78-98); MEAN PLATELET VOLUME 7.1 FL (7.4-10.4); PLATELET COUNT 311 X10'3 (140-440); RED BLOOD COUNT 2.72 X10'6 (4.70-6.10); RED CELL DISTRIBUTION WIDTH 16.3 % (11.5-14.5); WHITE BLOOD COUNT 8.4 X10'3 (4.5-11.0)
[2020-05-20] VITALS (10 sets, daily range): BP systolic 109–138; BP diastolic 63–91
[2020-05-20] MEDS: traMADol 50MG tablet PO PRN ×4 (01:13→20:41)
--- NOTE | 2020-05-20 05:32 | NUR ---
Temp 99.3, ready to hang second unit of blood. Called , advised of liver transplant and current AST 79, ALT 111. states to give one time 650mg tylenol.
[2020-05-20] MEDS ORDERED: acetaminophen 325mg tablet PO ONE (05:35)
--- NOTE | 2020-05-20 06:19 | NUR ---
Problems reprioritized. Patient report given, questions answered & plan of care reviewed with SHELBY Watters.
[2020-05-20] MEDS: K and/or MAG REPLACEMENT MC SCH ×2 (08:00→20:00)
[2020-05-20] MEDS: cloNIDine 0.1 mg tablet PO SCH ×2 (08:11→20:42)
[2020-05-20] MEDS: gabapentin 100mg capsule PO SCH ×3 (08:12→20:42)
[2020-05-20] MEDS: amLODIPine 5mg tablet PO SCH (08:12)
[2020-05-20] MEDS: zinc sulfate 220mg capsule PO SCH ×2 (08:13→20:41)
[2020-05-20] MEDS: propranolol 10mg tablet PO SCH ×3 (08:13→20:41)
[2020-05-20] MEDS: multivitamins, therapeutics tablet PO SCH (08:13)
[2020-05-20] MEDS: lactose-reduced food (Ensure Enlive) - 237ml bottle PO SCH ×3 (08:13→18:00)
[2020-05-20] MEDS: tacrolimus anhydrous 1mg capsule PO SCH ×2 (09:39→20:42)
[2020-05-20 12:32] LABS: BASOPHILS % (AUTO) 0.5 % (0-1); EOSINOPHILS # (AUTO) 0.3 X10'3 (0-0.9); EOSINOPHILS % (AUTO) 3.7 % (0-6); HEMATOCRIT 25.4 % (42.0-52.0); HEMOGLOBIN 8.4 g/dl (14.0-17.9); LYMPHOCYTES # (AUTO) 0.7 X10'3 (1.1-4.8); LYMPHOCYTES % (AUTO) 10.4 % (21-51); MEAN CORPUSCULAR HEMOGLOBIN 30.2 PG (27.0-31.0); MEAN CORPUSCULAR HGB CONC 33.2 g/dL (33.0-36.5); MEAN CORPUSCULAR VOLUME 90.8 FL (78-98); MONOCYTES % (AUTO) 14.3 % (2-12); NEUTROPHILS # (AUTO) 5.1 X10'3 (1.8-7.7); NEUTROPHILS % (AUTO) 71.1 % (42-75); PLATELET COUNT 275 X10'3 (140-440); RED BLOOD COUNT 2.79 X10'6 (4.70-6.10); RED CELL DISTRIBUTION WIDTH 15.9 % (11.5-14.5); WHITE BLOOD COUNT 7.1 X10'3 (4.5-11.0)
[2020-05-20 12:42] LABS: ALANINE AMINOTRANSFERASE 109 U/L (12-78); ALBUMIN 1.4 G/DL (3.4-5.0); ALBUMIN/GLOBULIN RATIO 0.2 (1.1-1.5); ALKALINE PHOSPHATASE 194 IU/L (46-116); ANION GAP 10 (8-16); ASPARTATE AMINO TRANSFERASE 78 U/L (10-37); BILIRUBIN,TOTAL 1.4 MG/DL (0.1-1.0); BLOOD UREA NITROGEN 39 MG/DL (7-18); BUN/CREATININE RATIO 20.7 (5.4-32.0); CALCIUM 8.5 MG/DL (8.5-10.1); CHLORIDE 99 MMOL/L (99-107); CREATININE 1.88 MG/DL (0.60-1.10); GLUCOSE 114 MG/DL (70-104); PHOSPHORUS 4.5 MG/DL (2.3-4.5); SODIUM 130 MMOL/L (135-145); TOTAL CARBON DIOXIDE 21.1 MMOL/L (24-32); TOTAL PROTEIN 7.5 G/DL (6.4-8.2); eGFR 38 ML/MIN
[2020-05-20] MEDS ORDERED: CLON0.1T2 PO (15:16)
[2020-05-20] MEDS ORDERED: MELA3TAB39 PO (15:16)
[2020-05-20] MEDS ORDERED: PROP10TA10 PO (15:16)
[2020-05-20] MEDS ORDERED: LACT-237 PO (15:16)
[2020-05-20] MEDS ORDERED: GABA-530 PO (15:16)
[2020-05-20] MEDS ORDERED: TACR1CAP PO (15:16)
[2020-05-20] MEDS ORDERED: ZINC220C11 PO (15:16)
--- NOTE | 2020-05-20 18:24 | NUR ---
All cares given, ultram given x2 for pain with effect. Patient seen by DR Jack, is for discharge. Call made by this RN to [facility]. RN present stated that she did not have staff or equipment to have patient go to senior care. DR Jack paged with regards this. patient will Dc in am. PICC removed intact . Patient appears stable. Report given to chris RYAN
[2020-05-20] MEDS: Melatonin 3mg tablet PO PRN (20:50)
[2020-05-21] VITALS: BP 127/83
[2020-05-21] MEDS: traMADol 50MG tablet PO PRN ×2 (00:41→05:04)
--- NOTE | 2020-05-21 06:16 | NUR ---
Problems reprioritized. Patient report given, questions answered & plan of care reviewed with Sumi RYAN.
--- NOTE | 2020-05-21 06:36 | NUR ---
Patient in room [facility]. I have received report from chris gardner and had the opportunity to ask questions and assume patient care.
[2020-05-21 07:14] VITALS: BP 135/75
[2020-05-21] MEDS: K and/or MAG REPLACEMENT MC SCH (07:23)
[2020-05-21] MEDS: multivitamins, therapeutics tablet PO SCH (07:25)
[2020-05-21] MEDS: zinc sulfate 220mg capsule PO SCH (07:25)
[2020-05-21] MEDS: cloNIDine 0.1 mg tablet PO SCH (07:25)
[2020-05-21] MEDS: gabapentin 100mg capsule PO SCH (07:25)
[2020-05-21 07:26] VITALS: BP_SYST 135
[2020-05-21] MEDS: amLODIPine 5mg tablet PO SCH (07:26)
[2020-05-21] MEDS: tacrolimus anhydrous 1mg capsule PO SCH (07:26)
[2020-05-21] MEDS: propranolol 10mg tablet PO SCH (07:26)
--- NOTE | 2020-05-21 08:30 | NUR ---
PAGED DR MAHONEY RE: PAGER ID: [phone] MESSAGE: LISA BLACK. [facility]AN[facility] HAS ACCEPTED PT BACK. HE WILL DC BACK NOW. SURGICAL [facility] [phone]
--- NOTE | 2020-05-21 09:50 | NUR ---
PT DISCHARGED IN STABLE CONDITION, TRANSFERRED BACK TO [facility]. ALL BELONGINGS WITH PT. ESCORTED BY DEPUTIES. Addendum: 05/21/20 at 1129 by Jada Carver RN Amended: Links added.
[2020-05-22] MEDS ORDERED: CARV-50 PO (01:07)
== END 2020-05-21 09:46 | DRG 870 ==
LOC: ER 05:33 → EEVIPCON 05:33 → ED HOLD 08:13 → ICU 2S 09:20 → SUR 3N 05-07 15:40
PROVIDERS: ADMIT Internal Medicine Critical Care Medicine; ATTEND Internal Medicine Critical Care Medicine
PROC: 0BH17EZ Insertion of Endotracheal Airway into Trachea, Via Natural or Artificial Opening (ICD-10-PCS; principal; 2020-04-20)
PROC: 5A1955Z Respiratory Ventilation, Greater than 96 Consecutive Hours (ICD-10-PCS; 2020-04-20)
PROC: 0BJ08ZZ Inspection of Tracheobronchial Tree, Via Natural or Artificial Opening Endoscopic (ICD-10-PCS; 2020-04-26)
PROC: 30233N1 Transfusion of Nonautologous Red Blood Cells into Peripheral Vein, Percutaneous Approach (ICD-10-PCS; 2020-05-01)
DX: A41.9 Sepsis, unspecified organism (principal); N17.0 Acute kidney failure with tubular necrosis; J18.9 Pneumonia, unspecified organism; E87.2 Acidosis; J98.11 Atelectasis; Z94.4 Liver transplant status; E87.5 Hyperkalemia; I95.9 Hypotension, unspecified; E11.9 Type 2 diabetes mellitus without complications; E66.9 Obesity, unspecified; E86.0 Dehydration; I10 Essential (primary) hypertension; Z89.519 Acquired absence of unspecified leg below knee; Z98.84 Bariatric surgery status; S40.011A Contusion of right shoulder, initial encounter; X58.XXXA Exposure to other specified factors, initial encounter; Y93.89 Activity, other specified; Y92.89 Other specified places as the place of occurrence of the external cause; Y99.8 Other external cause status; Z68.39 Body mass index [BMI] 39.0-39.9, adult; Z20.828 Contact with and (suspected) exposure to other viral communicable diseases
CPT/HCPCS: 31500; 31645; 36415; 36430; 36556; 36573; 36600; 70450; 71045; 71250; 73200; 73564; 78580; 80048; 80053; 80069; 80197; 80202; 80305; 81001; 82140; 82150; 82272; 82330; 82570; 82803; 82810; 82948; 83036; 83605; 83690; 83721; 83735; 83880; 84100; 84132; 84134; 84145; 84156; 84300; 84443; 84478; 84484; 84540; 84560; 85007; 85018; 85025; 85027; 85610; 85730; 86644; 86885; 86900; 86901; 86920; 86945; 87040; 87070; 87077; 87081; 87088; 87186; 87340; 87635; 92508; 92616; 93005; 93306; 93308; 93970; 93971; 94002; 94003; 94640; 94644; 94760; 96365; 96367; 96368; 96375; 97110; 97112; 97161; 97162; 97530; 97535; 97760; 99291; 99292; A9540; C9113; E1594; G0378; J0153; J0171; J0360; J0461; J0696; J1170; J1265; J1644; J1650; J1815; J1940; J2020; J2060; J2150; J2270; J2310; J2405; J2543; J2704; J2920; J2930; J2997; J3370; J3480; J7030; J7060; J7070; P9016; Q4081

== ENCOUNTER 2020-05-21 21:38 | Inpatient (IN) | payer OTHER ==
[~2020-05-21] VITALS: Ht 175.3 cm; Wt 113.6 kg
[~2020-05-21 21:38] MED LIST changes: +ACET-1059 PO; -ALLO100T PO; +AMIT100T61 PO; +AMLO10TA13 PO; -CARV25TA2 PO; +CHOL10006 PO; +CLON0.1T2 PO; -FURO-150 PO; +GABA-530 PO; -GABA-534 PO; -HYDR-3972 PO; +HYDR12.55 PO; +LACT-237 PO; +MELA3TAB39 PO; +MULT-687 PO; -ONDA4TAB12 PO; -ONDA4TAB6 PO; -OXYC-138 PO; +PROP10TA10 PO; +ZINC220C11 PO
[2020-05-21] MEDS ORDERED: normal saline 1000ML IV soln IV ONE (22:35)
[2020-05-21 23:10] LABS: BASOPHILS % (AUTO) 0.4 % (0-1); EOSINOPHILS # (AUTO) 0.2 X10'3 (0-0.9); EOSINOPHILS % (AUTO) 2.6 % (0-6); HEMATOCRIT 29.2 % (42.0-52.0); HEMOGLOBIN 9.9 g/dl (14.0-17.9); LYMPHOCYTES # (AUTO) 0.5 X10'3 (1.1-4.8); LYMPHOCYTES % (AUTO) 8.2 % (21-51); MEAN CORPUSCULAR HEMOGLOBIN 30.9 PG (27.0-31.0); MEAN CORPUSCULAR HGB CONC 33.8 g/dL (33.0-36.5); MEAN CORPUSCULAR VOLUME 91.4 FL (78-98); MEAN PLATELET VOLUME 6.8 FL (7.4-10.4); MONOCYTES # (AUTO) 0.7 X10'3 (0-0.9); MONOCYTES % (AUTO) 10.7 % (2-12); NEUTROPHILS % (AUTO) 78.1 % (42-75); PLATELET COUNT 361 X10'3 (140-440); RED BLOOD COUNT 3.19 X10'6 (4.70-6.10); WHITE BLOOD COUNT 6.4 X10'3 (4.5-11.0)
[2020-05-21] MEDS ORDERED: cefepime 2g/NS 100ml ADVANTAGE 100 ML IV STA (23:17)
[2020-05-21 23:23] LABS: ALANINE AMINOTRANSFERASE 288 U/L (12-78); ALBUMIN 1.7 G/DL (3.4-5.0); ALBUMIN/GLOBULIN RATIO 0.3 (1.1-1.5); ALKALINE PHOSPHATASE 599 IU/L (46-116); ANION GAP 13 (8-16); ASPARTATE AMINO TRANSFERASE 281 U/L (10-37); BILIRUBIN,TOTAL 1.3 MG/DL (0.1-1.0); BLOOD UREA NITROGEN 35 MG/DL (7-18); BUN/CREATININE RATIO 19.9 (5.4-32.0); CALCIUM 9.3 MG/DL (8.5-10.1); CHLORIDE 100 MMOL/L (99-107); CREATININE 1.76 MG/DL (0.60-1.10); GLUCOSE 99 MG/DL (70-104); POTASSIUM 5.3 MMOL/L (3.5-5.1); SODIUM 133 MMOL/L (135-145); TOTAL CARBON DIOXIDE 20.3 MMOL/L (24-32); TOTAL PROTEIN 8.1 G/DL (6.4-8.2); eGFR 41 ML/MIN
[2020-05-22] MEDS ORDERED: CARV-50 PO (01:07)
[2020-05-22 01:37] LABS: CLARITY,URINE CLEAR (Clear); COLOR,URINE YELLOW (Yellow); GLUCOSE, URINE NEGATIVE (Neg); KETONES,URINE NEGATIVE (Neg); LEUKOCYTE ESTERASE ,URINE NEGATIVE (Neg); NITRITES, URINE NEGATIVE (Neg); OCCULT BLOOD,URINE SMALL (Neg); PH,URINE 5.5 (4.8-8.0); PROTEIN,URINE 30 mg/dl (Neg); UROBILINOGEN,URINE 0.2 E.U/dL (0.2-1.0)
[2020-05-22] MEDS ORDERED: magnesium 4gm in 100ml NS 100 ML IV PRN (01:50)
[2020-05-22] MEDS ORDERED: magnesium Cl slow-release 64mg tablet PO PRN (01:50)
[2020-05-22] MEDS ORDERED: potassium Cl 20 mEq SR tablet PO PRN ×2 (01:50)
[2020-05-22] MEDS ORDERED: magnesium 2GM in 50ml NS 50 ML IV PRN (01:50)
[2020-05-22] MEDS ORDERED: ondansetron/PF 4mg/2ml inj IV PRN (01:50)
[2020-05-22] MEDS ORDERED: potassium CL 10mEq/100ml bag 100 ML IV PRN ×2 (01:50)
[2020-05-22 01:52] LABS: UA COLLECTION TYPE VOIDED
[2020-05-22 01:53] LABS: BACTERIA,URINE NONE SEEN /HPF (Neg); RBC,URINE 0-2 /HPF (0-2); SQUAMOUS EPITHELIAL CELL,UR NONE SEEN /LPF (FEW); WBC,URINE 0-4 /HPF (0-4)
[2020-05-22 01:54] LABS: HYALINE CASTS 0-3 /LPF (NEGATIVE)
[2020-05-22] MEDS: normal saline 1000ml 1,000 ML IV SCH (02:27)
[2020-05-22 03:10] VITALS: BP 148/95
[2020-05-22 06:00] VITALS: BP 131/88
--- NOTE | 2020-05-22 06:15 | NUR ---
Patient in room PCU 3011. I have received report from Francisco RYAN and had the opportunity to ask questions and assume patient care.
--- NOTE | 2020-05-22 06:26 | NUR ---
Problems reprioritized. Patient report given, questions answered & plan of care reviewed with Matthew RYAN.
[2020-05-22 07:33] LABS: CREATININE 1.65 MG/DL (0.60-1.10); eGFR 44 ML/MIN
[2020-05-22] MEDS ORDERED: vancomycin/NS 1 GM ADD-VANTAGE 250 ML IV SCH (08:00)
[2020-05-22] MEDS: K and/or MAG REPLACEMENT MC SCH ×2 (08:00→20:00)
[2020-05-22] MEDS: docusate sod 100mg capsule PO SCH ×2 (08:25→19:48)
[2020-05-22 09:05] LABS: ALANINE AMINOTRANSFERASE 205 U/L (12-78); ALBUMIN 1.5 G/DL (3.4-5.0); ALBUMIN/GLOBULIN RATIO 0.3 (1.1-1.5); ALKALINE PHOSPHATASE 449 IU/L (46-116); ANION GAP 13 (8-16); ASPARTATE AMINO TRANSFERASE 120 U/L (10-37); BILIRUBIN,TOTAL 1.1 MG/DL (0.1-1.0); BLOOD UREA NITROGEN 31 MG/DL (7-18); BUN/CREATININE RATIO 18.8 (5.4-32.0); CALCIUM 8.7 MG/DL (8.5-10.1); CHLORIDE 104 MMOL/L (99-107); GLUCOSE 105 MG/DL (70-104); POTASSIUM 5.2 MMOL/L (3.5-5.1); SODIUM 136 MMOL/L (135-145); TOTAL CARBON DIOXIDE 19.1 MMOL/L (24-32); TOTAL PROTEIN 7.2 G/DL (6.4-8.2)
[2020-05-22 11:00] VITALS: BP 138/89
[2020-05-22] MEDS: oxyCODONE IR 5mg (immed. release) tablet PO PRN ×2 (12:14→20:01)
--- NOTE | 2020-05-22 12:32 | NUR ---
PAGER ID: [phone] MESSAGE: Re: Tim Blackmon. Room: 3011. Med-rec complete, ready for review. -Matthew [facility] #[id number]
[2020-05-22 15:00] VITALS: BP 139/83
--- NOTE | 2020-05-22 15:34 | NUR ---
promotional table spacer PAGER ID: [phone] MESSAGE: Re: Zoila Dumotn. Room: 3011. Do you want any heparin or lovenox for Pt? -Matthew [facility] #[id number] Dr. Cornejo paged concerning anti coagulation for Pt.
--- NOTE | 2020-05-22 18:00 | NUR ---
Patient in room PCU 3011. I have received report from Matthew RYAN and had the opportunity to ask questions and assume patient care.
--- NOTE | 2020-05-22 18:30 | NUR ---
Problems reprioritized. Patient report given, questions answered & plan of care reviewed with Emilia RYAN.
[2020-05-22] MEDS: carVEDilol 12.5mg tablet PO SCH (19:47)
[2020-05-22] MEDS: amitriptyline 50mg tablet PO SCH (19:48)
[2020-05-22] MEDS: tacrolimus anhydrous 1mg capsule PO SCH (19:48)
[2020-05-22] MEDS: magnesium oxide 400mg tablet PO SCH (19:48)
[2020-05-22] MEDS: cefepime 2g/NS 100ml ADVANTAGE 100 ML IV SCH (20:02)
[2020-05-22 22:39] VITALS: BP 128/79
[2020-05-23] MEDS: oxyCODONE IR 5mg (immed. release) tablet PO PRN ×3 (02:16→19:43)
[2020-05-23 02:49] VITALS: BP 159/84
[2020-05-23 05:37] LABS: BASOPHILS % (AUTO) 0.5 % (0-1); EOSINOPHILS # (AUTO) 0.2 X10'3 (0-0.9); EOSINOPHILS % (AUTO) 3.1 % (0-6); HEMATOCRIT 25.3 % (42.0-52.0); HEMOGLOBIN 8.3 g/dl (14.0-17.9); LYMPHOCYTES # (AUTO) 0.7 X10'3 (1.1-4.8); LYMPHOCYTES % (AUTO) 9.8 % (21-51); MEAN CORPUSCULAR HGB CONC 32.9 g/dL (33.0-36.5); MEAN CORPUSCULAR VOLUME 91.3 FL (78-98); MEAN PLATELET VOLUME 6.9 FL (7.4-10.4); MONOCYTES # (AUTO) 0.7 X10'3 (0-0.9); MONOCYTES % (AUTO) 10.4 % (2-12); NEUTROPHILS # (AUTO) 5.1 X10'3 (1.8-7.7); NEUTROPHILS % (AUTO) 76.2 % (42-75); PLATELET COUNT 354 X10'3 (140-440); RED BLOOD COUNT 2.77 X10'6 (4.70-6.10); RED CELL DISTRIBUTION WIDTH 16.4 % (11.5-14.5); WHITE BLOOD COUNT 6.7 X10'3 (4.5-11.0)
[2020-05-23 06:00] VITALS: BP 157/100
--- NOTE | 2020-05-23 06:14 | NUR ---
Problems reprioritized. Patient report given, questions answered & plan of care reviewed with Matthew RYAN.
--- NOTE | 2020-05-23 06:15 | NUR ---
Patient in room PCU 3011. I have received report from Emilia RYAN and had the opportunity to ask questions and assume patient care.
[2020-05-23 06:17] LABS: ALANINE AMINOTRANSFERASE 135 U/L (12-78); ALBUMIN 1.5 G/DL (3.4-5.0); ALBUMIN/GLOBULIN RATIO 0.3 (1.1-1.5); ALKALINE PHOSPHATASE 340 IU/L (46-116); ANION GAP 12 (8-16); ASPARTATE AMINO TRANSFERASE 38 U/L (10-37); BILIRUBIN,TOTAL 0.7 MG/DL (0.1-1.0); BLOOD UREA NITROGEN 27 MG/DL (7-18); BUN/CREATININE RATIO 17.2 (5.4-32.0); CALCIUM 8.7 MG/DL (8.5-10.1); CHLORIDE 103 MMOL/L (99-107); CREATININE 1.57 MG/DL (0.60-1.10); GLUCOSE 128 MG/DL (70-104); MAGNESIUM 1.3 MG/DL (1.5-2.4); POTASSIUM 4.6 MMOL/L (3.5-5.1); SODIUM 134 MMOL/L (135-145); TOTAL CARBON DIOXIDE 19.4 MMOL/L (24-32); TOTAL PROTEIN 7.5 G/DL (6.4-8.2); eGFR 47 ML/MIN
[2020-05-23] MEDS: K and/or MAG REPLACEMENT MC SCH ×2 (08:00→20:00)
[2020-05-23] MEDS: carVEDilol 12.5mg tablet PO SCH ×2 (08:35→19:36)
[2020-05-23] MEDS: vitamin D (cholecalciferol) 1,000 unit tablet PO SCH (08:35)
[2020-05-23] MEDS: cefepime 2g/NS 100ml ADVANTAGE 100 ML IV SCH ×2 (08:35→19:35)
[2020-05-23] MEDS: amitriptyline 50mg tablet PO SCH ×2 (08:36→19:36)
[2020-05-23] MEDS: multivitamins, therapeutics tablet PO SCH (08:36)
[2020-05-23] MEDS: magnesium oxide 400mg tablet PO SCH ×2 (08:36→19:36)
[2020-05-23] MEDS: pantoprazole 40mg Tablet.DR PO SCH (08:36)
[2020-05-23] MEDS: docusate sod 100mg capsule PO SCH ×2 (08:36→19:36)
[2020-05-23] MEDS: enoxaparin 30mg/0.3ml syringe SUBCUT SCH (08:37)
[2020-05-23] MEDS: tacrolimus anhydrous 1mg capsule PO SCH ×2 (08:37→19:36)
[2020-05-23 11:00] VITALS: BP 165/102
[2020-05-23] MEDS ORDERED: VANCOMYCIN LEVEL IV ONE (12:30)
--- NOTE | 2020-05-23 13:33 | NUR ---
PAGER ID: [phone] MESSAGE: Re: Zoila Dumont. Room: [facility]. Critical [facility] trough:.[address] [place] [address] [phone] Cornejo paged concerning critical [facility] trough
[2020-05-23] MEDS ORDERED: vancomycin/NS 1 GM ADD-VANTAGE 250 ML X 1 DOSE IV PRN (13:57)
--- NOTE | 2020-05-23 14:50 | NUR ---
Problems reprioritized. Patient report given, questions answered & plan of care reviewed with Joelle RYAN.
--- NOTE | 2020-05-23 14:50 | NUR ---
Patient in room PCU 3011. I have received report from SHELBY Castro and had the opportunity to ask questions and assume patient care.
[2020-05-23 15:00] VITALS: BP 157/99
[2020-05-23 18:00] VITALS: BP 159/108
--- NOTE | 2020-05-23 18:00 | NUR ---
Patient in room U 3011. I have received report from URI Centeno and had the opportunity to ask questions and assume patient care. Addendum: 05/23/20 at 1803 by Joelle Tomas RN Problems reprioritized. Patient report given, questions answered & plan of care reviewed with Uri Centeno.
--- NOTE | 2020-05-23 18:00 | NUR ---
PAGER ID: [phone] MESSAGE: 3011: Tim Reyes - guard states jesús will wants to see the next set of labs before intervening - inna [phone]
--- NOTE | 2020-05-23 18:30 | NUR ---
Patient in room PCU 3011. I have received report from Joelle RYAN and had the opportunity to ask questions and assume patient care.
[2020-05-23] MEDS ORDERED: hydrALAZINE 20mg/ml inj. IV PRN (18:55)
[2020-05-23] MEDS: lactobacillus rhamnosus 10,000 MMU CELLS/CAPSULE PO SCH (19:36)
[2020-05-23] MEDS ORDERED: propranolol 10mg tablet PO SCH (21:00)
[2020-05-23 22:00] VITALS: BP 150/96
[2020-05-24 02:00] VITALS: BP 142/101
[2020-05-24] MEDS: oxyCODONE IR 5mg (immed. release) tablet PO PRN ×2 (02:11→08:04)
[2020-05-24] MEDS: normal saline 1000ml 1,000 ML IV SCH (02:12)
[2020-05-24] MEDS ORDERED: VANCOMYCIN LEVEL IV SCH (03:00)
[2020-05-24 05:47] LABS: BASOPHILS # (AUTO) 0.1 X10'3 (0-0.2); BASOPHILS % (AUTO) 0.8 % (0-1); EOSINOPHILS # (AUTO) 0.2 X10'3 (0-0.9); EOSINOPHILS % (AUTO) 3.4 % (0-6); HEMATOCRIT 26.5 % (42.0-52.0); HEMOGLOBIN 8.7 g/dl (14.0-17.9); LYMPHOCYTES # (AUTO) 0.7 X10'3 (1.1-4.8); MEAN CORPUSCULAR HEMOGLOBIN 29.9 PG (27.0-31.0); MEAN CORPUSCULAR HGB CONC 32.9 g/dL (33.0-36.5); MONOCYTES # (AUTO) 0.7 X10'3 (0-0.9); MONOCYTES % (AUTO) 9.7 % (2-12); NEUTROPHILS # (AUTO) 5.5 X10'3 (1.8-7.7); NEUTROPHILS % (AUTO) 76.1 % (42-75); PLATELET COUNT 386 X10'3 (140-440); RED BLOOD COUNT 2.91 X10'6 (4.70-6.10); RED CELL DISTRIBUTION WIDTH 16.2 % (11.5-14.5); WHITE BLOOD COUNT 7.3 X10'3 (4.5-11.0)
--- NOTE | 2020-05-24 06:26 | NUR ---
Problems reprioritized. Patient report given, questions answered & plan of care reviewed with Luly RYAN.
[2020-05-24 06:31] LABS: ALANINE AMINOTRANSFERASE 102 U/L (12-78); ALBUMIN 1.6 G/DL (3.4-5.0); ALBUMIN/GLOBULIN RATIO 0.3 (1.1-1.5); ALKALINE PHOSPHATASE 287 IU/L (46-116); ANION GAP 12 (8-16); ASPARTATE AMINO TRANSFERASE 31 U/L (10-37); BILIRUBIN,TOTAL 0.6 MG/DL (0.1-1.0); BLOOD UREA NITROGEN 24 MG/DL (7-18); BUN/CREATININE RATIO 15.8 (5.4-32.0); CALCIUM 8.9 MG/DL (8.5-10.1); CHLORIDE 102 MMOL/L (99-107); CREATININE 1.52 MG/DL (0.60-1.10); GLUCOSE 102 MG/DL (70-104); MAGNESIUM 1.2 MG/DL (1.5-2.4); POTASSIUM 4.7 MMOL/L (3.5-5.1); SODIUM 135 MMOL/L (135-145); TOTAL CARBON DIOXIDE 21.4 MMOL/L (24-32); TOTAL PROTEIN 7.9 G/DL (6.4-8.2); eGFR 49 ML/MIN
--- NOTE | 2020-05-24 06:32 | NUR ---
Patient in room PCU 3011. I have received report from Jacobo RN and had the opportunity to ask questions and assume patient care.
[2020-05-24 07:00] VITALS: BP 143/87
[2020-05-24] MEDS: docusate sod 100mg capsule PO SCH (08:00)
[2020-05-24] MEDS: cefepime 2g/NS 100ml ADVANTAGE 100 ML IV SCH (08:04)
[2020-05-24] MEDS: multivitamins, therapeutics tablet PO SCH (08:05)
[2020-05-24] MEDS: pantoprazole 40mg Tablet.DR PO SCH (08:05)
[2020-05-24] MEDS: carVEDilol 12.5mg tablet PO SCH (08:05)
[2020-05-24] MEDS: magnesium oxide 400mg tablet PO SCH (08:05)
[2020-05-24] MEDS: vitamin D (cholecalciferol) 1,000 unit tablet PO SCH (08:05)
[2020-05-24] MEDS: amitriptyline 50mg tablet PO SCH (08:05)
[2020-05-24] MEDS: enoxaparin 30mg/0.3ml syringe SUBCUT SCH (08:06)
[2020-05-24] MEDS: tacrolimus anhydrous 1mg capsule PO SCH (08:06)
[2020-05-24] MEDS: lactobacillus rhamnosus 10,000 MMU CELLS/CAPSULE PO SCH (08:06)
[2020-05-24] MEDS: K and/or MAG REPLACEMENT MC SCH (08:07)
[2020-05-24 11:00] VITALS: BP 153/102
--- NOTE | 2020-05-24 13:15 | NUR ---
Pt stable for discharge per MD order. All discharge instructions reviewed with patient and all questions answered. PIV discontinued, cannula intact. Telemetry discontinued, teleservices representative notified. All belongings collected and sent with patient. Patient picked up in transport van by retirement staff, wheeled to lobby by staff.
== END 2020-05-24 12:52 | DRG 604 ==
LOC: ER 21:39 → EEVIPCON 21:39 → ED HOLD 05-22 01:46 → UNDOADMIN 05-22 02:48 → ED HOLD 05-22 03:15 → PCU 3S 05-22 03:15
PROVIDERS: ADMIT Internal Medicine; ATTEND Family Medicine
DX: S40.012A Contusion of left shoulder, initial encounter (principal); N17.0 Acute kidney failure with tubular necrosis; Z94.4 Liver transplant status; E87.1 Hypo-osmolality and hyponatremia; E86.0 Dehydration; E87.5 Hyperkalemia; X58.XXXA Exposure to other specified factors, initial encounter; K21.9 Gastro-esophageal reflux disease without esophagitis; R19.7 Diarrhea, unspecified; I12.9 Hypertensive chronic kidney disease with stage 1 through stage 4 chronic kidney disease, or unspecified chronic kidney disease; D72.810 Lymphocytopenia; G89.4 Chronic pain syndrome; S20.211A Contusion of right front wall of thorax, initial encounter; D64.9 Anemia, unspecified; K76.9 Liver disease, unspecified; R79.89 Other specified abnormal findings of blood chemistry; M25.571 Pain in right ankle and joints of right foot; R00.0 Tachycardia, unspecified; N18.9 Chronic kidney disease, unspecified; Z79.899 Other long term (current) drug therapy; Z89.512 Acquired absence of left leg below knee; Z98.84 Bariatric surgery status; Z88.8 Allergy status to other drugs, medicaments and biological substances; Y93.89 Activity, other specified; Y92.89 Other specified places as the place of occurrence of the external cause; Y99.8 Other external cause status
CPT/HCPCS: 36415; 71045; 74176; 80053; 80202; 81001; 82948; 83605; 83735; 84145; 85025; 87040; 87081; 93308; 99285; G0378; J0692; J1650; J3370; J7030

== ENCOUNTER 2020-05-28 03:27 | Inpatient (IN) | payer OTHER ==
[~2020-05-28] VITALS: Ht 175.3 cm; Wt 110.0 kg
[~2020-05-28 03:27] MED LIST changes: -ACET-1059 PO; +CARV-50 PO; -CLON0.1T2 PO; -GABA-530 PO; -LACT-237 PO; -MELA3TAB39 PO; -PROP10TA10 PO; -ZINC220C11 PO
[2020-05-28] MEDS ORDERED: acetaminophen 325mg tablet PO ONE (03:40)
[2020-05-28 04:00] LABS: BASOPHILS # (AUTO) 0.1 X10'3 (0-0.2); BASOPHILS % (AUTO) 0.7 % (0-1); EOSINOPHILS # (AUTO) 0.3 X10'3 (0-0.9); EOSINOPHILS % (AUTO) 2.2 % (0-6); HEMATOCRIT 28.9 % (42.0-52.0); HEMOGLOBIN 9.2 g/dl (14.0-17.9); LYMPHOCYTES # (AUTO) 0.8 X10'3 (1.1-4.8); LYMPHOCYTES % (AUTO) 7.2 % (21-51); MEAN CORPUSCULAR HEMOGLOBIN 29.7 PG (27.0-31.0); MEAN CORPUSCULAR HGB CONC 31.8 g/dL (33.0-36.5); MEAN CORPUSCULAR VOLUME 93.4 FL (78-98); MEAN PLATELET VOLUME 7.1 FL (7.4-10.4); MONOCYTES # (AUTO) 0.8 X10'3 (0-0.9); NEUTROPHILS # (AUTO) 9.8 X10'3 (1.8-7.7); NEUTROPHILS % (AUTO) 82.9 % (42-75); PLATELET COUNT 448 X10'3 (140-440); RED CELL DISTRIBUTION WIDTH 17.3 % (11.5-14.5); WHITE BLOOD COUNT 11.8 X10'3 (4.5-11.0)
[2020-05-28 04:18] LABS: ALANINE AMINOTRANSFERASE 41 U/L (12-78); ALBUMIN 1.9 G/DL (3.4-5.0); ALBUMIN/GLOBULIN RATIO 0.3 (1.1-1.5); ALKALINE PHOSPHATASE 237 IU/L (46-116); ANION GAP 12 (8-16); ASPARTATE AMINO TRANSFERASE 15 U/L (10-37); BILIRUBIN,TOTAL 0.5 MG/DL (0.1-1.0); BLOOD UREA NITROGEN 45 MG/DL (7-18); BUN/CREATININE RATIO 14.1 (5.4-32.0); CALCIUM 8.9 MG/DL (8.5-10.1); CHLORIDE 101 MMOL/L (99-107); CREATININE 3.19 MG/DL (0.60-1.10); GLUCOSE 81 MG/DL (70-104); POTASSIUM 5.2 MMOL/L (3.5-5.1); SODIUM 133 MMOL/L (135-145); TOTAL CARBON DIOXIDE 20.5 MMOL/L (24-32); TOTAL PROTEIN 8.3 G/DL (6.4-8.2); eGFR 21 ML/MIN
[2020-05-28 04:40] LABS: CLARITY,URINE CLEAR (Clear); COLOR,URINE YELLOW (Yellow); GLUCOSE, URINE NEGATIVE (Neg); KETONES,URINE NEGATIVE (Neg); LEUKOCYTE ESTERASE ,URINE NEGATIVE (Neg); NITRITES, URINE NEGATIVE (Neg); OCCULT BLOOD,URINE SMALL (Neg); PROTEIN,URINE >=300 mg/dl (Neg); UA COLLECTION TYPE CLN CATCH MIDSTREAM; UROBILINOGEN,URINE 0.2 E.U/dL (0.2-1.0)
[2020-05-28 04:45] LABS: BACTERIA,URINE FEW /HPF (Neg); RBC,URINE 0-2 /HPF (0-2); SQUAMOUS EPITHELIAL CELL,UR FEW /LPF (FEW); WBC,URINE NONE SEEN /HPF (0-4)
[2020-05-28] MEDS ORDERED: ACET-3068 PO (05:44)
[2020-05-28] MEDS: normal saline 1000ml 1,000 ML IV SCH ×3 (05:46→22:13)
[2020-05-28] MEDS ORDERED: magnesium hydroxide 30ml (MOM) UD suspension PO PRN (05:50)
[2020-05-28] MEDS ORDERED: ondansetron/PF 4mg/2ml inj IV PRN (05:50)
[2020-05-28] MEDS ORDERED: acetaminophen 325mg tablet PO PRN (05:50)
[2020-05-28] MEDS ORDERED: mag hydrox/Alum hydrox/simeth 30ml oral suspension PO PRN (05:50)
[2020-05-28 05:52] LABS: D-DIMER 3.71 MG/L FEU (0-0.50)
[2020-05-28] MEDS ORDERED: pantoprazole 40mg Tablet.DR PO SCH (07:30)
[2020-05-28] MEDS: amLODIPine 5mg tablet PO SCH (08:00)
[2020-05-28] MEDS: carVEDilol 12.5mg tablet PO SCH ×2 (08:00→19:53)
[2020-05-28] MEDS ORDERED: heparin, porcine 5000 units/ml vial SQ SCH (08:00)
--- NOTE | 2020-05-28 08:01 | NUR ---
Patient in room ED 7. I have received report from SHELBY Veronica and had the opportunity to ask questions and assume patient care.
[2020-05-28 08:30] VITALS: BP 93/59
[2020-05-28] MEDS: tacrolimus anhydrous 1mg capsule PO SCH ×2 (09:33→19:52)
[2020-05-28] MEDS: amitriptyline 50mg tablet PO SCH ×2 (09:33→19:52)
[2020-05-28] MEDS: vitamin D (cholecalciferol) 1,000 unit tablet PO SCH (09:33)
[2020-05-28 11:00] VITALS: BP 94/61
[2020-05-28 15:00] VITALS: BP 95/64
[2020-05-28 18:00] VITALS: BP 124/75
--- NOTE | 2020-05-28 18:00 | NUR ---
Patient in room PCU 3010. I have received report from Uzma RYAN and had the opportunity to ask questions and assume patient care. Patient is stable and guard at bedside.
--- NOTE | 2020-05-28 18:15 | NUR ---
Problems reprioritized. Patient report given, questions answered & plan of care reviewed with SHELBY Benites.
[2020-05-28] MEDS: nystatin 15 GM powder TP SCH (21:00)
[2020-05-28 22:00] VITALS: BP 111/65
[2020-05-29 02:00] VITALS: BP 105/64
--- NOTE | 2020-05-29 03:26 | NUR ---
Problems reprioritized. Patient report given, questions answered & plan of care reviewed with Benoit RN and Emilia RYAN.
--- NOTE | 2020-05-29 03:31 | NUR ---
Patient in room PCU 3010. I have received report from ITALO RN and had the opportunity to ask questions and assume patient care. Previous RN during mini shifter 05/28 to 05/29 documentation: I have reviewed and agree with all interventions, assessments performed and documented by Italo RN.
--- NOTE | 2020-05-29 03:35 | NUR ---
Patient in room PCU 3010. I have received report from Delmis RYAN and had the opportunity to ask questions and assume patient care. Previous RN during supervisor channel process 05/28 to 05/29 documentation: I have reviewed and agree with all interventions, assessments performed and documented by Delmis RYAN.
[2020-05-29] MEDS: normal saline 1000ml 1,000 ML IV SCH ×3 (04:30→20:34)
[2020-05-29 05:18] LABS: BASOPHILS # (AUTO) 0.1 X10'3 (0-0.2); BASOPHILS % (AUTO) 0.8 % (0-1); EOSINOPHILS # (AUTO) 0.1 X10'3 (0-0.9); EOSINOPHILS % (AUTO) 1.4 % (0-6); HEMATOCRIT 22.6 % (42.0-52.0); HEMOGLOBIN 7.3 g/dl (14.0-17.9); LYMPHOCYTES # (AUTO) 0.9 X10'3 (1.1-4.8); LYMPHOCYTES % (AUTO) 10.8 % (21-51); MEAN CORPUSCULAR HEMOGLOBIN 30.2 PG (27.0-31.0); MEAN CORPUSCULAR HGB CONC 32.5 g/dL (33.0-36.5); MEAN CORPUSCULAR VOLUME 93.1 FL (78-98); MEAN PLATELET VOLUME 7.3 FL (7.4-10.4); MONOCYTES # (AUTO) 0.7 X10'3 (0-0.9); MONOCYTES % (AUTO) 8.3 % (2-12); NEUTROPHILS # (AUTO) 6.7 X10'3 (1.8-7.7); NEUTROPHILS % (AUTO) 78.7 % (42-75); PLATELET COUNT 332 X10'3 (140-440); RED BLOOD COUNT 2.43 X10'6 (4.70-6.10); RED CELL DISTRIBUTION WIDTH 16.6 % (11.5-14.5); WHITE BLOOD COUNT 8.5 X10'3 (4.5-11.0)
[2020-05-29 05:35] LABS: ALANINE AMINOTRANSFERASE 33 U/L (12-78); ALBUMIN 1.6 G/DL (3.4-5.0); ALBUMIN/GLOBULIN RATIO 0.3 (1.1-1.5); ALKALINE PHOSPHATASE 181 IU/L (46-116); ANION GAP 12 (8-16); ASPARTATE AMINO TRANSFERASE 18 U/L (10-37); BILIRUBIN,TOTAL 0.4 MG/DL (0.1-1.0); BLOOD UREA NITROGEN 46 MG/DL (7-18); BUN/CREATININE RATIO 15.5 (5.4-32.0); CALCIUM 8.5 MG/DL (8.5-10.1); CHLORIDE 101 MMOL/L (99-107); CREATININE 2.97 MG/DL (0.60-1.10); GLUCOSE 78 MG/DL (70-104); POTASSIUM 5.1 MMOL/L (3.5-5.1); SODIUM 133 MMOL/L (135-145); TOTAL CARBON DIOXIDE 20.3 MMOL/L (24-32); TOTAL PROTEIN 7.7 G/DL (6.4-8.2); eGFR 22 ML/MIN
--- NOTE | 2020-05-29 05:58 | NUR ---
Problems reprioritized. Patient report given, questions answered & plan of care reviewed with Jeane Butler documentation: I have reviewed and agree with all interventions, assessments performed and documented by Emilia RYAN.
--- NOTE | 2020-05-29 06:08 | NUR ---
Problems reprioritized. Patient report given, questions answered & plan of care reviewed with Jeane RYAN.
--- NOTE | 2020-05-29 06:19 | NUR ---
Patient in room PCU 3010. I have received report from Benoit RN/Emilia RN and had the opportunity to ask questions and assume patient care. Pt sleeping comfortably, officer at bedside.
[2020-05-29 07:00] VITALS: BP 111/75
[2020-05-29] MEDS: vitamin D (cholecalciferol) 1,000 unit tablet PO SCH (08:05)
[2020-05-29] MEDS: amLODIPine 5mg tablet PO SCH (08:05)
[2020-05-29] MEDS: tacrolimus anhydrous 1mg capsule PO SCH ×2 (08:06→20:35)
[2020-05-29] MEDS: carVEDilol 12.5mg tablet PO SCH ×2 (08:06→20:35)
[2020-05-29] MEDS: amitriptyline 50mg tablet PO SCH ×2 (08:06→20:35)
[2020-05-29] MEDS: nystatin 15 GM powder TP SCH (08:08)
[2020-05-29 11:00] VITALS: BP 106/63
--- NOTE | 2020-05-29 12:24 | NUR ---
DM consult re: Possible hx of DM. Per [facility] pt with hx T2DM, current A1c is 6.1%, DM education not warranted at this time. Will continue to follow. Addendum: 05/29/20 at [address] Amended: Links added.
[2020-05-29 15:00] VITALS: BP 104/67
[2020-05-29 18:00] VITALS: BP 104/67
--- NOTE | 2020-05-29 18:22 | NUR ---
Problems reprioritized. Patient report given, questions answered & plan of care reviewed with SHELBY Benites. Pt resting comfortably, all needs met at this time.
[2020-05-29] MEDS: NYSTATIN CREAM - 30GM TUBE TP SCH (20:36)
[2020-05-29 22:00] VITALS: BP 108/74
[2020-05-30] MEDS: normal saline 1000ml 1,000 ML IV SCH ×4 (01:09→19:43)
[2020-05-30 02:00] VITALS: BP 124/79
[2020-05-30 06:00] VITALS: BP 129/77
--- NOTE | 2020-05-30 06:15 | NUR ---
Problems reprioritized. Patient report given, questions answered & plan of care reviewed with Miranda RYAN.
[2020-05-30 06:16] LABS: BASOPHILS # (AUTO) 0.1 X10'3 (0-0.2); EOSINOPHILS # (AUTO) 0.1 X10'3 (0-0.9); EOSINOPHILS % (AUTO) 1.4 % (0-6); HEMATOCRIT 22.1 % (42.0-52.0); HEMOGLOBIN 7.4 g/dl (14.0-17.9); LYMPHOCYTES # (AUTO) 0.6 X10'3 (1.1-4.8); LYMPHOCYTES % (AUTO) 9.6 % (21-51); MEAN CORPUSCULAR HGB CONC 33.3 g/dL (33.0-36.5); MEAN CORPUSCULAR VOLUME 93.1 FL (78-98); MEAN PLATELET VOLUME 7.1 FL (7.4-10.4); MONOCYTES # (AUTO) 0.4 X10'3 (0-0.9); MONOCYTES % (AUTO) 6.6 % (2-12); NEUTROPHILS # (AUTO) 5.4 X10'3 (1.8-7.7); NEUTROPHILS % (AUTO) 81.4 % (42-75); PLATELET COUNT 314 X10'3 (140-440); RED BLOOD COUNT 2.38 X10'6 (4.70-6.10); RED CELL DISTRIBUTION WIDTH 16.3 % (11.5-14.5); WHITE BLOOD COUNT 6.6 X10'3 (4.5-11.0)
[2020-05-30 06:23] LABS: ALANINE AMINOTRANSFERASE 18 U/L (12-78); ALBUMIN 1.5 G/DL (3.4-5.0); ALBUMIN/GLOBULIN RATIO 0.3 (1.1-1.5); ALKALINE PHOSPHATASE 154 IU/L (46-116); ANION GAP 12 (8-16); ASPARTATE AMINO TRANSFERASE 15 U/L (10-37); BILIRUBIN,TOTAL 0.4 MG/DL (0.1-1.0); BLOOD UREA NITROGEN 39 MG/DL (7-18); BUN/CREATININE RATIO 18.8 (5.4-32.0); CALCIUM 8.7 MG/DL (8.5-10.1); CHLORIDE 104 MMOL/L (99-107); CREATININE 2.08 MG/DL (0.60-1.10); GLUCOSE 83 MG/DL (70-104); POTASSIUM 5.1 MMOL/L (3.5-5.1); SODIUM 134 MMOL/L (135-145); TOTAL CARBON DIOXIDE 18.4 MMOL/L (24-32); TOTAL PROTEIN 7.2 G/DL (6.4-8.2); eGFR 34 ML/MIN
--- NOTE | 2020-05-30 06:33 | NUR ---
Patient in room PCU 3010. I have received report from Delmis RYAN and had the opportunity to ask questions and assume patient care.
[2020-05-30] MEDS: vitamin D (cholecalciferol) 1,000 unit tablet PO SCH (08:10)
[2020-05-30] MEDS: amLODIPine 5mg tablet PO SCH (08:10)
[2020-05-30] MEDS: amitriptyline 50mg tablet PO SCH ×2 (08:10→19:41)
[2020-05-30] MEDS: carVEDilol 12.5mg tablet PO SCH ×2 (08:10→19:41)
[2020-05-30] MEDS: NYSTATIN CREAM - 30GM TUBE TP SCH ×2 (08:11→19:43)
[2020-05-30] MEDS: tacrolimus anhydrous 1mg capsule PO SCH ×2 (08:11→19:41)
[2020-05-30 09:14] LABS: % IRON SATURATION 21 % (11-46); IRON 22 UG/DL (53-167); TOTAL IRON BINDING CAPACITY 104 UG/DL (259-388)
[2020-05-30 11:00] VITALS: BP 127/74
[2020-05-30 15:00] VITALS: BP 125/81
[2020-05-30 18:00] VITALS: BP 145/88
--- NOTE | 2020-05-30 18:24 | NUR ---
Problems reprioritized. Patient report given, questions answered & plan of care reviewed with Delmis RYAN.
[2020-05-30 22:00] VITALS: BP 136/92
--- NOTE | 2020-05-31 01:58 | NUR ---
Refused 2100 blood sugar check.
[2020-05-31 02:00] VITALS: BP 159/95
[2020-05-31] MEDS: normal saline 1000ml 1,000 ML IV SCH ×2 (03:18→09:58)
[2020-05-31 06:05] LABS: BASOPHILS # (AUTO) 0.1 X10'3 (0-0.2); BASOPHILS % (AUTO) 0.8 % (0-1); EOSINOPHILS # (AUTO) 0.1 X10'3 (0-0.9); EOSINOPHILS % (AUTO) 1.4 % (0-6); HEMATOCRIT 25.9 % (42.0-52.0); HEMOGLOBIN 8.5 g/dl (14.0-17.9); LYMPHOCYTES # (AUTO) 0.7 X10'3 (1.1-4.8); MEAN CORPUSCULAR HEMOGLOBIN 30.2 PG (27.0-31.0); MEAN CORPUSCULAR HGB CONC 32.7 g/dL (33.0-36.5); MEAN CORPUSCULAR VOLUME 92.2 FL (78-98); MEAN PLATELET VOLUME 7.2 FL (7.4-10.4); MONOCYTES # (AUTO) 0.5 X10'3 (0-0.9); MONOCYTES % (AUTO) 7.1 % (2-12); NEUTROPHILS # (AUTO) 5.4 X10'3 (1.8-7.7); NEUTROPHILS % (AUTO) 79.7 % (42-75); PLATELET COUNT 359 X10'3 (140-440); RED CELL DISTRIBUTION WIDTH 16.3 % (11.5-14.5); WHITE BLOOD COUNT 6.8 X10'3 (4.5-11.0)
[2020-05-31 06:24] LABS: ALANINE AMINOTRANSFERASE 23 U/L (12-78); ALBUMIN 1.7 G/DL (3.4-5.0); ALBUMIN/GLOBULIN RATIO 0.3 (1.1-1.5); ALKALINE PHOSPHATASE 151 IU/L (46-116); ANION GAP 13 (8-16); ASPARTATE AMINO TRANSFERASE 18 U/L (10-37); BILIRUBIN,TOTAL 0.5 MG/DL (0.1-1.0); BLOOD UREA NITROGEN 28 MG/DL (7-18); CALCIUM 8.8 MG/DL (8.5-10.1); CHLORIDE 106 MMOL/L (99-107); CREATININE 1.65 MG/DL (0.60-1.10); GLUCOSE 75 MG/DL (70-104); POTASSIUM 4.9 MMOL/L (3.5-5.1); SODIUM 138 MMOL/L (135-145); TOTAL CARBON DIOXIDE 18.7 MMOL/L (24-32); TOTAL PROTEIN 7.7 G/DL (6.4-8.2); eGFR 44 ML/MIN
[2020-05-31 06:30] VITALS: BP 141/88
--- NOTE | 2020-05-31 06:33 | NUR ---
Patient in room PCU 3010. I have received report from Delmis RYAN and had the opportunity to ask questions and assume patient care.
[2020-05-31] MEDS: carVEDilol 12.5mg tablet PO SCH (07:49)
[2020-05-31] MEDS: vitamin D (cholecalciferol) 1,000 unit tablet PO SCH (07:50)
[2020-05-31] MEDS: tacrolimus anhydrous 1mg capsule PO SCH (07:50)
[2020-05-31] MEDS: amLODIPine 5mg tablet PO SCH (07:50)
[2020-05-31] MEDS: amitriptyline 50mg tablet PO SCH (07:50)
[2020-05-31] MEDS: NYSTATIN CREAM - 30GM TUBE TP SCH (07:51)
[2020-05-31 11:00] VITALS: BP 145/92
--- NOTE | 2020-05-31 11:53 | NUR ---
Jaclyn CRONIN PAGER ID: [phone] MESSAGE: Mary Lou kim [phone]. Polly Huber 3011. Physical therapy finished working with patient and will be placing note momentarily. I will begin the discharge paperwork once you complete filling out discharge. Thank you!
--- NOTE | 2020-05-31 14:05 | NUR ---
Per MD, patient stable for discharge back to nursing home. Discharge packet completed and provided, and education given to patient and guard. D/C photo of coccyx and dry bottom done and placed in chart. No new prescriptions ordered. IVs removed with catheters intact and tele removed and returned to telecommunications consultant. Patient assisted into wheelchair by PT and driven back to nursing home by guards.
== END 2020-05-31 14:05 | DRG 605 ==
LOC: EEVIPCON 03:27 → ER 03:27 → ED HOLD 05:46 → PCU 3S 08:36
PROVIDERS: ADMIT Internal Medicine; ATTEND Family Medicine
DX: S20.211A Contusion of right front wall of thorax, initial encounter (principal); N17.9 Acute kidney failure, unspecified; Z94.4 Liver transplant status; D63.8 Anemia in other chronic diseases classified elsewhere; E86.0 Dehydration; E87.5 Hyperkalemia; X58.XXXA Exposure to other specified factors, initial encounter; I12.9 Hypertensive chronic kidney disease with stage 1 through stage 4 chronic kidney disease, or unspecified chronic kidney disease; N18.9 Chronic kidney disease, unspecified; G89.29 Other chronic pain; K21.9 Gastro-esophageal reflux disease without esophagitis; R09.02 Hypoxemia; Z89.512 Acquired absence of left leg below knee; Z98.84 Bariatric surgery status; Z88.8 Allergy status to other drugs, medicaments and biological substances; Z79.899 Other long term (current) drug therapy; Y93.89 Activity, other specified; Y92.89 Other specified places as the place of occurrence of the external cause; Y99.8 Other external cause status
CPT/HCPCS: 36415; 71045; 80053; 81001; 82948; 83540; 83550; 83605; 84145; 85025; 85379; 85610; 87040; 87081; 87635; 93005; 97110; 97162; 97530; 99285; G0378; J1644; J7030

== ENCOUNTER 2020-06-03 13:45 | Emergency (ER) | payer OTHER ==
[~2020-06-03] VITALS: Ht 175.3 cm; Wt 106.8 kg
[~2020-06-03 13:45] MED LIST changes: +ACET-3068 PO; -HYDR12.55 PO
[2020-06-03] MEDS ORDERED: normal saline 1000ML IV soln IVB ONE (14:55)
--- NOTE | 2020-06-03 15:24 | NUR ---
patient made aware that urine sample is needed.urinal given.
[2020-06-03 15:47] LABS: BASOPHILS # (AUTO) 0.1 X10'3 (0-0.2); BASOPHILS % (AUTO) 0.7 % (0-1); EOSINOPHILS # (AUTO) 0.1 X10'3 (0-0.9); EOSINOPHILS % (AUTO) 0.7 % (0-6); HEMOGLOBIN 8.3 g/dl (14.0-17.9); LYMPHOCYTES # (AUTO) 0.9 X10'3 (1.1-4.8); LYMPHOCYTES % (AUTO) 8.8 % (21-51); MEAN CORPUSCULAR HEMOGLOBIN 29.5 PG (27.0-31.0); MEAN CORPUSCULAR HGB CONC 32.1 g/dL (33.0-36.5); MEAN CORPUSCULAR VOLUME 91.9 FL (78-98); MEAN PLATELET VOLUME 6.9 FL (7.4-10.4); MONOCYTES # (AUTO) 0.7 X10'3 (0-0.9); MONOCYTES % (AUTO) 7.6 % (2-12); NEUTROPHILS % (AUTO) 82.2 % (42-75); PLATELET COUNT 357 X10'3 (140-440); RED BLOOD COUNT 2.83 X10'6 (4.70-6.10); RED CELL DISTRIBUTION WIDTH 17.4 % (11.5-14.5); WHITE BLOOD COUNT 9.8 X10'3 (4.5-11.0)
[2020-06-03 15:49] LABS: CLARITY,URINE CLOUDY (Clear); COLOR,URINE YELLOW (Yellow); GLUCOSE, URINE NEGATIVE (Neg); KETONES,URINE 15 mg/dl (Neg); LEUKOCYTE ESTERASE ,URINE NEGATIVE (Neg); NITRITES, URINE NEGATIVE (Neg); OCCULT BLOOD,URINE SMALL (Neg); PROTEIN,URINE 100 mg/dl (Neg); UROBILINOGEN,URINE 0.2 E.U/dL (0.2-1.0)
[2020-06-03 15:50] LABS: UA COLLECTION TYPE CLN CATCH MIDSTREAM
[2020-06-03 15:58] LABS: SQUAMOUS EPITHELIAL CELL,UR MANY /LPF (FEW)
[2020-06-03 16:00] LABS: BACTERIA,URINE 1+ /HPF (Neg); MUCUS STRANDS FEW /LPF (Neg); WBC,URINE 0-4 /HPF (0-4)
--- NOTE | 2020-06-03 16:00 | NUR ---
PTS BS WAS 67, GAVE JUICE AND SNACK TO PT WILL RECHECK IN 15 MIN
[2020-06-03 16:01] LABS: AMORPHOUS URATES 2+
[2020-06-03 16:02] LABS: ALANINE AMINOTRANSFERASE 17 U/L (12-78); ALBUMIN/GLOBULIN RATIO 0.3 (1.1-1.5); ALKALINE PHOSPHATASE 155 IU/L (46-116); ANION GAP 12 (8-16); ASPARTATE AMINO TRANSFERASE 19 U/L (10-37); BILIRUBIN,TOTAL 0.5 MG/DL (0.1-1.0); BLOOD UREA NITROGEN 31 MG/DL (7-18); BUN/CREATININE RATIO 16.6 (5.4-32.0); CALCIUM 8.9 MG/DL (8.5-10.1); CHLORIDE 102 MMOL/L (99-107); CREATININE 1.87 MG/DL (0.60-1.10); GLUCOSE 74 MG/DL (70-104); POTASSIUM 4.6 MMOL/L (3.5-5.1); SODIUM 136 MMOL/L (135-145); TOTAL CARBON DIOXIDE 21.8 MMOL/L (24-32); TOTAL PROTEIN 8.5 G/DL (6.4-8.2); eGFR 38 ML/MIN
[2020-06-03 16:04] LABS: URINE AMPHETAMINE SCREEN NEGATIVE (Neg); URINE BARBITUATE SCREEN NEGATIVE (Neg); URINE BENZODIAZEPINES SCREEN NEGATIVE (Neg); URINE CANNABINOID SCREEN NEGATIVE (Neg); URINE COCAINE SCREEN NEGATIVE (Neg); URINE METHADONE SCREEN NEGATIVE (Neg); URINE OPIATE SCREEN POSITIVE (Neg); URINE PHENCYCLIDINE SCREEN NEGATIVE (Neg)
[2020-06-03 16:11] LABS: ETHANOL < 0.010 GM/DL (0.0-0.010)
[2020-06-03 17:11] VITALS: BP 109/66
== END 2020-06-03 17:16 ==
LOC: ER 13:46
DX: R41.82 Altered mental status, unspecified (principal); I10 Essential (primary) hypertension; G89.29 Other chronic pain; Z98.890 Other specified postprocedural states; Z72.89 Other problems related to lifestyle; Z88.8 Allergy status to other drugs, medicaments and biological substances; Z91.013 Allergy to seafood; Z79.899 Other long term (current) drug therapy
CPT/HCPCS: 36415; 70450; 71045; 80053; 80305; 80320; 81001; 82140; 82948; 85025; 93005; 96360; 99285; J7030